=== PATIENT | female | born 1960 | race Caucasian/White ===

== ENCOUNTER 2023-07-15 11:24 | Emergency (ER) | payer MEDICARE, OTHER, SELFPAY ==
[2023-07-15 11:29] VITALS: BP 152/102
[2023-07-15 11:49] LABS: % Basophils 0.7 % (0-2); % Eosinophils 1.1 % (0-6); % Immature Granulocytes 0.4 % (0-0.5); % Lymphocytes 21.7 % (20.5-51.1); % Neutrophils 72.1 % (42.2-75.2); Absolute Basophils 0.1 10^3/uL (0-0.2); Absolute Eosinophils 0.1 10^3/uL (0-0.7); Absolute Lymphocytes 2.4 10^3/uL (1.2-3.4); Absolute Monocytes 0.4 10^3/uL (0.1-0.6); Hematocrit 43.4 % (37.0-47.0); Hemoglobin 15.1 g/dL (12.0-16.0); Mean Corp Hgb Conc. 34.8 g/dL (33.0-37.0); Mean Corpuscular Hgb 31.6 pg (27.0-31.0); Mean Corpuscular Volume 90.8 fL (81.0-99.0); Mean Platelet Volume 10.8 fL (7.4-10.4); Nucleated Red Blood Cells % 0 %; Platelet Count 294 10^3/uL (130-400); Red Blood Cell Count 4.78 10^6/uL (4.20-5.40); Red Cell Dist. Width 13.3 % (11.5-14.5); White Blood Cell Count 11.1 10^3/uL (4.8-10.8)
[2023-07-15 12:02] LABS: ALT (SGPT) 26 U/L (0-35); AST (SGOT) 40 U/L (14-36); Albumin 4.2 g/dl (3.5-5.0); Alkaline Phosphatase 143 U/L (38-126); Blood Urea Nitrogen 18 mg/dl (7-17); Calcium 9.7 mg/dl (8.4-10.2); Carbon Dioxide 25 mmol/L (22-30); Chloride 102 mmol/L (98-107); Glucose 228 mg/dl (70-99); Potassium 4.2 mmol/L (3.5-5.1); Sodium 136 mmol/L (135-145); Total Bilirubin 1.2 mg/dl (0.2-1.3); Total CK 563 U/L (30-135); eGFR > 60.00
[2023-07-15 12:32] LABS: CKMB 2.5 ng/ml (0.0-2.4)
[2023-07-15] MEDS: NSS 1000 IV (14:08)
[2023-07-15 14:09] VITALS: BP 153/61
[2023-07-15 15:00] VITALS: BP 97/69
[2023-07-15 16:15] VITALS: BP 127/51
[2023-07-15] MEDS: BACITRACIN OINTMENT 1 APPLIC TOPICAL (16:15)
--- NOTE | 2023-07-22 19:25 | ED.GENMED ---
History of Present Illness
General
Chief Complaint: Fall
Source: patient and ambulance crew
Exam Limitations: none
Time Seen by Provider: 07/15/23 12:30
Travel History
Have you had any contact with someone who has COVID-19?: No
Do you have any symptoms of coronavirus? Fever > 100 degrees, chills, cough, shortness of breath, sore throat, loss of taste or smell, muscle aches, or headache?: No
History of Present Illness
History of Present Illness:
63-year-old female presents emergency department after falling Saturday night and being unable to stand. EMS notes that she was ambulatory on the floor and on the scene after getting up off the floor. She reports muscle stiffness and abrasions on
her leg
Past History
Past History
ED Past Medical History: Cancer (Endometrial CA), HTN, NIDDM, Hypothyroidism, Psychiatric (Depression), Other (Pseudotumor cerebri, history of abdominal wall abscess, history of recurrent infected seroma, history of prolonged wound VAC for
nonhealing postsurgical abdominal wound, Idiopathic intracranial HTN, ) and Other (Diverticulitis, )
ED Past Surgical History: Appendectomy, Bowel resection (large bowel, ), Brain (Shunt), Cholecystectomy, Gynecological (Hysterectomy, PCOS), Orthopedic (Right patella removal, ) and Other (colostomy with reversal, hernia, LP shunt at Lumbar
peritoneal L3-L5 replaced 6 times, )
Social History
Tobacco: Non-smoker
Alcohol: Occasional
Drug: None
Personal: Single
Living: alone
Employment: Employed
Family History
Family History: Hypertension
Review of Systems
Review of Systems
Allergies reviewed?: Yes
All Other Systems: Not applicable
Constitutional: Reports no symptoms
EENT: Reports no symptoms
Respiratory: Reports no symptoms
Cardiac: Reports no symptoms
ABD/GI: Reports no symptoms
: Reports no symptoms
Musculoskeletal: Reports no symptoms
Skin: Reports other (Abrasions bilateral lower legs)
Neurological: Reports no symptoms
Endocrine: Reports no symptoms
Hematologic/Lymphatic: Reports no symptoms
Psychiatric: Reports no symptoms
Phy Exam
Physical Exam
Physical Exam:
Physical Exam
General: no apparent distress, not acutely ill
Neck: supple. no meningeal signs. normal posterior pharynx
Heart: s1/s2 regular rate and rhythm, no murmur. equal radial
pulses.
HEENT: Pupils equal round reactive to light, EOMI
Lungs: no acute respiratory distress. clear bilaterally
Abdomen: normal bowel sounds. not tender. no CVAT
Neuro: alert and oriented. no focal neurological deficits cranial nerves II through XII intact
Skin: no rash, abrasions bilateral lower legs
Psychiatric: well kept. interactive and cooperative
Extremities: no edema. no calf tenderness. negative homans. good distal pulses
Course
Orders/Labs/Results
Orders:
Orders
07/15/23 11:39
CKMB [CPK Isoenzyme] Urgent
Complete Blood Count/With Diff Urgent
Comprehensive Metabolic Panel Urgent
07/15/23 12:48
0.9% Sodium Chloride 1000 ml [Nss] 1,000 ml IV BOLUS
07/15/23 12:50
CT Head W/o Iv Contrast Urgent
Comment:
Reason For Exam: fall, hit head
Ribs, Left 3 View W/PA Chest CR [CR Ribs-left 3 Vw W/pa Chest] Urgent
Comment:
Reason For Exam: fall, left rib pain
07/15/23 15:34
Bacitracin Zinc [Bacitracin Ointment] See Dose Instructions TOPICAL NOW STA
Abnormal Lab Results
07/15/23
11:39
WBC 11.1 H 10^3/uL
(4.8-10.8)
MCH 31.6 H pg
(27.0-31.0)
MPV 10.8 H fL
(7.4-10.4)
Absolute Neuts (auto) 8.0 H 10^3/uL
(1.4-6.5)
BUN 18 H mg/dl
(7-17)
Glucose 228 H mg/dl
(70-99)
AST 40 H U/L
(14-36)
Alkaline Phosphatase 143 H U/L
(38-126)
Total Creatine Kinase 563 H U/L
(30-135)
CK-MB (CK-2) 2.5 H ng/ml
(0.0-2.4)
07/15/23 11:39
07/15/23 11:39
Vital Signs
Initial and Last Documented VS:
Initial Vital Signs
Temp Pulse Resp BP Pulse Ox
98.0 F 101 20 152/102 99
07/15/23 11:29 07/15/23 11:29 07/15/23 11:29 07/15/23 11:29 07/15/23 11:29
Last Documented Vital Signs
Temp Pulse Resp BP Pulse Ox
98.0 F 105 19 127/51 98
07/15/23 11:29 07/15/23 16:15 07/15/23 16:15 07/15/23 16:15 07/15/23 15:15
MDM/Problems Addressed
Differential Diagnosis Includes:
Intracranial hemorrhage, rib fracture
MDM/Problems Addressed:
63-year-old female with fall, multiple abrasions, no signs of fracture. Patient ambulatory in ED. Stable for discharge.
Chronic conditions affecting care: HTN
Acute Exacerbation and/or Progression of Chronic Illness: HTN
*Radiology
Radiology exam reviewed: radiology read reviewed (Rib series no signs of fracture, CT head no acute findings)
*Pulse Oximetry
Patient hypoxic: no
*EKG
Interpreted by ED Provider?: NA
*Paper Cone Maker Interpretation
Rate: Paper Cone Maker- N/A
*Critical Care Note
Total Time (30-74mins, 75-104mins- exclusive of procedures): Not Applicable
Patient Management
Social determinants of health affecting care: Living situation
Escalation/DeEscalation of care consider admission/obs:
Admit not indicated
ED Attending Note
-
Portions of this chart may have been created with voice recognition software.� Occasional wrong word or��sound alike� substitutions may have occurred due to the inherent limitations of voice recognition software.
Discharge Plan
Departure
Patient Disposition: Home (Routine Discharge)
Date of Disposition: 07/15/23
Time of Disposition: 15:37
Patient with high blood pressure during this ER visit?: Yes
Condition: Good
Discharge Problem:
Fall, Abrasion of multiple sites of lower extremity
Instructions: Preventing falls in adults, Skin Abrasions (DC), BLOOD PRESSURE
Prescriptions:
No Action
lorazepam 0.5 MG tablet
0.5 mg PO BID
Patient Comments:
11/01/21 pt picked up 10/04/21 #60
lisinopril 5 MG tablet
5 mg PO DAILY
nystatin [Nyamyc] 60 GM powder
1 applic TP DAILYPRN PRN (Reason: legs and breast)
furosemide 40 MG tablet
20 mg PO DAILY
metronidazole 500 MG tablet
500 mg PO TID
ondansetron [Zofran ODT] 8 MG tablet,disintegrating
8 mg PO BIDPRN PRN (Reason: nausea)
gabapentin 300 MG capsule
300 mg PO DAILY
levothyroxine 200 MCG tablet
300 mcg PO DAILY
oxycodone 5 MG tablet
5 mg PO TID
Patient Comments:
11/01/21 pt picked up 10/02/21 #120
zolpidem [Ambien CR] 6.25 MG tablet,ext release multiphase
6.25 mg PO HS
Patient Comments:
11/01/21 patient picked up 10/05 #30
quetiapine [Seroquel] 50 MG tablet
50 mg PO HS
insulin glargine [Lantus Solostar U-100 Insulin] 300 UNITS/3 ML insulin pen
35 units SC BID
atenolol 25 mg Tablet
25 mg PO BID
diphenoxylate-atropine [Lomotil] 2.5-0.025 mg Tablet
1 tab PO DAILY PRN (Reason: diarrhea)
acetaminophen 500 mg Tablet
500 mg PO Q6H PRN (Reason: mild pain)
aripiprazole 10 mg Tablet
10 mg PO DAILY
insulin aspart (niacinamide) 100 unit/mL (3 mL) Insulin Pen
15 unit SC TID
diphenoxylate-atropine [Lomotil] 2.5-0.025 mg tablet
1 tab PO QID PRN (Reason: diarrhea) Qty: 10 0RF
ondansetron 4 mg tablet,disintegrating
4 mg PO QID PRN (Reason: nausea and vomiting) Qty: 20 0RF
Referrals:
Meme Shen MD [Family Provider] -
Interventions
Interventions:
*Risk Screen - Suicide Last Done: 07/15/23 11:29
*General Assessment Last Done: 07/15/23 11:29
*Neglect/Abuse Screening Last Done: 07/15/23 11:29
ED- Fall Risk Assessment Last Done: 07/15/23 17:39
*ED COVID-19 Vaccine History Last Done: 07/15/23 11:31
*Nursing Disposition Last Done: 07/15/23 16:15
ED-Musculoskeletal Assessment Last Done: 07/15/23 14:13
ED- Neurological Assessment Last Done: 07/15/23 14:13
ED-Skin Assessment Last Done: 07/15/23 14:13
Discharge Date and Time
Discharge Date/Time: 07/15/23 17:00
== END 2023-07-15 17:00 | disposition home or self-care (01) ==
LOC: EMR 11:24
PROVIDERS: Emergency Medicine; EMERGENCY PHYSICIAN Emergency Medicine; FAMILY PHYSICIAN Internal Medicine
DX: S80.812A Abrasion, left lower leg, initial encounter (principal); S80.811A Abrasion, right lower leg, initial encounter; W19.XXXA Unspecified fall, initial encounter; I10 Essential (primary) hypertension
CPT/HCPCS: 99285; 96360; 70450; 71101; 80053; 82550; 82553; 85025

== ENCOUNTER 2023-07-20 01:23 | Emergency (ER) | payer MEDICARE, OTHER, SELFPAY ==
[2023-07-20] VITALS (7 sets, daily range): BP systolic 112–142; BP diastolic 55–83; BMI 40.2
[2023-07-20 02:21] LABS: Glucose - Point of Care 141 mg/dl (70-99)
[2023-07-20 03:01] LABS: % Basophils 0.3 % (0-2); % Eosinophils 2.2 % (0-6); % Immature Granulocytes 0.3 % (0-0.5); % Lymphocytes 28.6 % (20.5-51.1); % Monocytes 6.1 % (1.7-9.3); % Neutrophils 62.5 % (42.2-75.2); Absolute Eosinophils 0.2 10^3/uL (0-0.7); Absolute Lymphocytes 2.5 10^3/uL (1.2-3.4); Absolute Monocytes 0.5 10^3/uL (0.1-0.6); Absolute Neutrophils 5.4 10^3/uL (1.4-6.5); Hematocrit 41.9 % (37.0-47.0); Hemoglobin 14.3 g/dL (12.0-16.0); Mean Corp Hgb Conc. 34.1 g/dL (33.0-37.0); Mean Corpuscular Volume 93.7 fL (81.0-99.0); Mean Platelet Volume 11.1 fL (7.4-10.4); Nucleated Red Blood Cells % 0 %; Platelet Count 269 10^3/uL (130-400); Red Blood Cell Count 4.47 10^6/uL (4.20-5.40); Red Cell Dist. Width 13.2 % (11.5-14.5); White Blood Cell Count 8.7 10^3/uL (4.8-10.8)
[2023-07-20 03:14] LABS: ALT (SGPT) 23 U/L (0-35); AST (SGOT) 22 U/L (14-36); Albumin 3.8 g/dl (3.5-5.0); Alkaline Phosphatase 126 U/L (38-126); Blood Urea Nitrogen 26 mg/dl (7-17); Calcium 9.4 mg/dl (8.4-10.2); Carbon Dioxide 31 mmol/L (22-30); Chloride 99 mmol/L (98-107); Estimated Creatinine Clearance 68 ml/min; Glucose 153 mg/dl (70-99); Lipase 52 U/L (23-300); Potassium 3.4 mmol/L (3.5-5.1); Sodium 137 mmol/L (135-145); Total Bilirubin 0.6 mg/dl (0.2-1.3); Total Protein 7.1 g/dl (6.3-8.2); eGFR > 60.00
--- NOTE | 2023-07-20 04:26 | ED.GENMED ---
History of Present Illness
<EVELYN Emerson - Last Filed: 07/20/23 04:35>
General
Chief Complaint: Abdominal Symptoms
Source: patient
Exam Limitations: none
Time Seen by Provider: 07/20/23 04:02
Nursing documentation reviewed up to this point in time: agreed with
Travel History
Have you had any contact with someone who has COVID-19?: No
Do you have any symptoms of coronavirus? Fever > 100 degrees, chills, cough, shortness of breath, sore throat, loss of taste or smell, muscle aches, or headache?: No
History of Present Illness
History of Present Illness:
This is a 63 year old female who presents to the ED via EMS c/o lightheadedness and dizziness. Pt states she fell 6 days ago and was seen at the hospital. She felt fine after she was discharged for a few days, but yesterday morning she woke up not
feeling well. She states she was unable to get out of bed and she was dizzy and felt as though she was going to pass out. She states she vomited two times and has had associated abdominal pain and diarrhea. Pt also adds that she is experiencing pain
while taking a deep breath. She denies any fever, COHN, or constipation. She adds that she has been having chills.
Past History
<EVELYN Emerson - Last Filed: 07/20/23 04:35>
Past History
ED Past Medical History: Cancer (Endometrial CA), HTN, NIDDM, Hypothyroidism, Psychiatric (Depression), Other (Pseudotumor cerebri, history of abdominal wall abscess, history of recurrent infected seroma, history of prolonged wound VAC for
nonhealing postsurgical abdominal wound, Idiopathic intracranial HTN, ) and Other (Diverticulitis, )
ED Past Surgical History: Appendectomy, Bowel resection (large bowel, ), Brain (Shunt), Cholecystectomy, Gynecological (Hysterectomy, PCOS), Orthopedic (Right patella removal, ) and Other (colostomy with reversal, hernia, LP shunt at Lumbar
peritoneal L3-L5 replaced 6 times, )
Social History
Tobacco: Non-smoker
Alcohol: Occasional
Drug: None
Personal: Single
Living: alone
Employment: Employed
Family History
Family History: Hypertension
Review of Systems
<Rachel Fraga [facility] - Last Filed: 07/20/23 04:35>
Review of Systems
Allergies reviewed?: Yes
All Other Systems: ROS reviewed and negative except as documented in HPI and ROS
Constitutional: Reports chills; Denies fever
EENT: Reports no symptoms
Respiratory: Reports trouble breathing
Cardiac: Reports chest pain; Denies syncope
ABD/GI: Reports abdominal pain, nausea, vomiting and diarrhea
: Reports no symptoms
Musculoskeletal: Reports no symptoms
Skin: Reports no symptoms
Neurological: Reports dizzy; Denies headache
Psychiatric: Reports no symptoms
Phy Exam
<Rachel Flakito [facility] - Last Filed: 07/20/23 04:35>
General Physical Exam
General Presentation: mild distress
General age: appears stated age
General Skin: warm and dry
General Habitus: normal
General Mental: alert
General Hydration: dry mucous membranes
ENT Exam
ENT Exam: pharynx normal, normocephalic and swallowing well
Cardiovascular Exam
Cardiovascular Exam: regular rate/rhythm, no edema, no murmur and normal peripheral pulses
Pulmonary Exam
Pulmonary Exam: lungs clear, no respiratory distress, no rales, no crackles, no rhonchi, no wheezing and no cough
Gastrointestinal Exam
Gastrointestinal Exam: normal bowel sounds, soft, non distended and tender (epigastric)
Neurological Exam
Neurological Exam: alert and oriented x3
Musculoskeletal Exam
Musculoskeletal Exam: full ROM and no edema
Skin Exam
Skin Exam: normal color and warm/dry
Psychiatric Exam
Psychiatric Exam: normal mood/affect
Course
<Leslideidra EVEYLN Fraga - Last Filed: 07/20/23 04:35>
Orders/Labs/Results
Orders:
Orders
07/20/23 02:30
IV Insert/Care/Rem.- Treatment PRN
07/20/23 02:32
Complete Blood Count/With Diff Urgent
Comprehensive Metabolic Panel Urgent
Lipase Urgent
07/20/23 04:59
0.9% Sodium Chloride 1000 ml [Nss] 1,000 ml IV BOLUS
07/20/23 05:13
Ondansetron Injectable [Zofran] 4 mg IV NOW STA
07/20/23 05:26
STOOL [C difficile Antigen & Toxins] Urgent
DION Source: Feces/Stool
Specimen Description:
Date Specimen was Collected: 07/20/23
Time Specimen was Collected: 05:13
Stool Culture Urgent
DION Source: Feces/Stool
Specimen Description:
Date Specimen was Collected: 07/20/23
Time Specimen was Collected: 05:13
Abnormal Lab Results
07/20/23 07/20/23
02:19 02:32
MCH 32.0 H pg
(27.0-31.0)
MPV 11.1 H fL
(7.4-10.4)
Potassium 3.4 L mmol/L
(3.5-5.1)
Carbon Dioxide 31 H mmol/L
(22-30)
BUN 26 H mg/dl
(7-17)
Glucose 153 H mg/dl
(70-99)
POC Glucose 141 H mg/dl
(70-99)
07/20/23 02:32
07/20/23 02:32
Vital Signs
Initial and Last Documented VS:
Initial Vital Signs
Temp Pulse Resp BP Pulse Ox
97.9 F 95 14 139/83 99
07/20/23 01:40 07/20/23 01:40 07/20/23 01:40 07/20/23 01:40 07/20/23 01:40
Last Documented Vital Signs
Temp Pulse Resp BP Pulse Ox
97.9 F 95 14 139/83 99
07/20/23 01:40 07/20/23 01:40 07/20/23 01:40 07/20/23 01:40 07/20/23 01:40
<Janet Kathleen, DO - Last Filed: 07/20/23 06:55>
Orders/Labs/Results
Orders:
Orders
07/20/23 02:30
IV Insert/Care/Rem.- Treatment PRN
07/20/23 02:32
Complete Blood Count/With Diff Urgent
Comprehensive Metabolic Panel Urgent
Lipase Urgent
07/20/23 04:59
0.9% Sodium Chloride 1000 ml [Nss] 1,000 ml IV BOLUS
07/20/23 05:13
Ondansetron Injectable [Zofran] 4 mg IV NOW STA
07/20/23 05:26
STOOL [C difficile Antigen & Toxins] Urgent
DION Source: Feces/Stool
Specimen Description:
Date Specimen was Collected: 07/20/23
Time Specimen was Collected: 05:13
Stool Culture Urgent
DION Source: Feces/Stool
Specimen Description:
Date Specimen was Collected: 07/20/23
Time Specimen was Collected: 05:13
Abnormal Lab Results
07/20/23 07/20/23
02:19 02:32
MCH 32.0 H pg
(27.0-31.0)
MPV 11.1 H fL
(7.4-10.4)
Potassium 3.4 L mmol/L
(3.5-5.1)
Carbon Dioxide 31 H mmol/L
(22-30)
BUN 26 H mg/dl
(7-17)
Glucose 153 H mg/dl
(70-99)
POC Glucose 141 H mg/dl
(70-99)
07/20/23 02:32
07/20/23 02:32
Vital Signs
Initial and Last Documented VS:
Initial Vital Signs
Temp Pulse Resp BP Pulse Ox
97.9 F 95 14 139/83 99
07/20/23 01:40 07/20/23 01:40 07/20/23 01:40 07/20/23 01:40 07/20/23 01:40
Last Documented Vital Signs
Temp Pulse Resp BP Pulse Ox
97.9 F 95 14 139/83 99
07/20/23 01:40 07/20/23 01:40 07/20/23 01:40 07/20/23 01:40 07/20/23 01:40
<Janet Kathleen DO - Last Filed: 07/20/23 06:55>
*Pulse Oximetry
Patient hypoxic: no
*Critical Care Note
Total Time (30-74mins, 75-104mins- exclusive of procedures): Not Applicable
ED Attending Note
<EVELYN Emerson - Last Filed: 07/20/23 04:35>
-
Portions of this chart may have been created with voice recognition software.� Occasional wrong word or��sound alike� substitutions may have occurred due to the inherent limitations of voice recognition software.
<Janet Kathleen DO - Last Filed: 07/20/23 06:55>
ED Attending Note
Patient seen and examined by attending physician: Yes
I performed the substantive portion of visit, reviewed & personally made and approve the management plan that is documented in note by myself or ADILENE.: Yes
I performed a history and physical exam of patient and discussed management with resident, I reviewed resident's note and agree with documented findings and plan of care.: Yes
ED Attending Note:
This is a 63-year-old woman who complains of generalized weakness, dizziness associated with nausea, vomiting, diarrhea that began yesterday afternoon. She has not had a fever but has had intermittent chills and aches. She denies hematemesis nor
hematochezia.
Symptoms are improving since arrival to the ED but she continues with some intermittent mild crampy abdominal discomfort with sense of needing to pass a bowel movement.
No recent travel nor recent antibiotic use.
Records reveal very similar complaints during ED visit February 2023.
She has a known left upper quadrant enterocutaneous fistula that was evaluated with fistulogram and CT abdomen pelvis in May of this year that showed no evidence of fistula, no free fluid nor intra-abdominal abscess.
GENERAL: 63-year-old woman appears somewhat older than stated age, moderately drowsy, answering questions appropriately and overall appears in no acute distress.
EYE: anicteric
NECK: Supple, nontender, no meningismus, no significant adenopathy.
ENT: posterior pharynx is clear, oral mucosa is mildly dry. T no rhinorrhea.
CARDIAC: Regular rate and rhythm. no murmur.
LUNGS: Clear breath sounds bilaterally, no acute respiratory distress, no wheezes/rales/rhonchi
ABDOMEN: Soft, nondistended, without focal tenderness, no r/g, no cvat. Mildly hyperactive bowel sounds.
NEUROLOGICAL: Alert and oriented x3, no focal neuro deficits.
SKIN: Warm and dry, normal color, skin intact. No rash.
MUSCULOSKELETAL: No C/C/E. peripheral pulses are full and equal b/l. No palpable tenderness.
PSYCH: Mildly blunted affect.
Concern for gastroenteritis, colitis, small bowel obstruction, dehydration, electrolyte abnormality. Overall symptoms are improving.
Patient clinically appears at least mildly dehydrated but is hemodynamically stable.
Labs are reassuring with normal white blood cell count, normal H&H.
Chemistries show very mild prerenal azotemia with minimal hypokalemia with potassium of 3.4, mild metabolic alkalosis. LFTs within normal limits.
Will give IV fluid bolus. Currently denies nausea but will give Zofran if nausea returns.
If diarrhea ensues will send for stool cultures, stool for C. difficile but reassuring that patient is afebrile and normal white blood cell count. No recent antibiotic use.
Abdominal exam soft and benign, symptoms are improving, at this point no indication for radiologic studies.
07/20/2023 0646 AM
Patient continues to sleep when undisturbed.
Tolerating oral fluids.
Will discharge to home with a prescription for Zofran for as needed nausea. Lomotil for as needed diarrhea.
Recommend she limit her diet to clear liquids today, slowly advance as tolerated tomorrow.
Prompt follow-up with primary care physician for recheck.
Discharge Plan
Departure
Patient Disposition: Home (Routine Discharge)
Date of Disposition: 07/20/23
Time of Disposition: 06:47
Patient with high blood pressure during this ER visit?: No
Discharge Problem:
Acute gastroenteritis
Instructions: Clear Liquid Diet, Viral Gastroenteritis, Adult (DC)
Prescriptions:
New
diphenoxylate-atropine [Lomotil] 2.5-0.025 mg tablet
1 tab PO QID PRN (Reason: diarrhea) Qty: 10 0RF
ondansetron 4 mg tablet,disintegrating
4 mg PO QID PRN (Reason: nausea and vomiting) Qty: 20 0RF
No Action
lorazepam 0.5 MG tablet
0.5 mg PO BID
Patient Comments:
11/01/21 pt picked up 10/04/21 #60
lisinopril 5 MG tablet
5 mg PO DAILY
nystatin [Nyamyc] 60 GM powder
1 applic TP DAILYPRN PRN (Reason: legs and breast)
furosemide 40 MG tablet
20 mg PO DAILY
metronidazole 500 MG tablet
500 mg PO TID
ondansetron [Zofran ODT] 8 MG tablet,disintegrating
8 mg PO BIDPRN PRN (Reason: nausea)
gabapentin 300 MG capsule
300 mg PO DAILY
levothyroxine 200 MCG tablet
300 mcg PO DAILY
oxycodone 5 MG tablet
5 mg PO TID
Patient Comments:
11/01/21 pt picked up 10/02/21 #120
zolpidem [Ambien CR] 6.25 MG tablet,ext release multiphase
6.25 mg PO HS
Patient Comments:
11/01/21 patient picked up 10/05 #30
quetiapine [Seroquel] 50 MG tablet
50 mg PO HS
insulin glargine [Lantus Solostar U-100 Insulin] 300 UNITS/3 ML insulin pen
35 units SC BID
atenolol 25 mg Tablet
25 mg PO BID
diphenoxylate-atropine [Lomotil] 2.5-0.025 mg Tablet
1 tab PO DAILY PRN (Reason: diarrhea)
acetaminophen 500 mg Tablet
500 mg PO Q6H PRN (Reason: mild pain)
aripiprazole 10 mg Tablet
10 mg PO DAILY
insulin aspart (niacinamide) 100 unit/mL (3 mL) Insulin Pen
15 unit SC TID
Referrals:
Meme Shen MD [Family Provider] - Call in 1-3 days for appt
Interventions
Interventions:
*Risk Screen - Suicide Last Done: 07/20/23 02:21
*General Assessment Last Done: 07/20/23 02:21
*Neglect/Abuse Screening Last Done: 07/20/23 02:21
ED- Fall Risk Assessment Last Done: 07/20/23 02:21
*ED COVID-19 Vaccine History Last Done: 07/20/23 02:21
ZC-Ougdqi-Adpwqemqla Assessment Last Done: 07/20/23 02:21
[2023-07-20] MEDS: NSS 1000 IV (05:18)
[2023-07-20] MEDS: ZOFRAN 4 MG IV (05:18)
== END 2023-07-20 09:02 | disposition home or self-care (01) ==
LOC: EMR 01:23
PROVIDERS: EMERGENCY PHYSICIAN Emergency Medicine; FAMILY PHYSICIAN Internal Medicine
DX: K52.9 Noninfective gastroenteritis and colitis, unspecified (principal); I10 Essential (primary) hypertension
CPT/HCPCS: 99284; 96374; 96361; 80053; 82962; 83690; 85025; 87045; 87046; 87324; 87427; 87449

== ENCOUNTER → 2023-08-06 09:58 | Outpatient (REF) | payer MEDICARE, OTHER, SELFPAY ==
[2023-08-06 11:33] LABS: % Eosinophils 9.7 % (0-6); % Immature Granulocytes 0.1 % (0-0.5); % Lymphocytes 32.9 % (20.5-51.1); % Monocytes 5.5 % (1.7-9.3); % Neutrophils 50.8 % (42.2-75.2); Absolute Basophils 0.1 10^3/uL (0-0.2); Absolute Eosinophils 0.8 10^3/uL (0-0.7); Absolute Lymphocytes 2.8 10^3/uL (1.2-3.4); Absolute Monocytes 0.5 10^3/uL (0.1-0.6); Absolute Neutrophils 4.2 10^3/uL (1.4-6.5); Hematocrit 40.9 % (37.0-47.0); Hemoglobin 13.8 g/dL (12.0-16.0); Mean Corp Hgb Conc. 33.7 g/dL (33.0-37.0); Mean Corpuscular Hgb 31.8 pg (27.0-31.0); Mean Corpuscular Volume 94.2 fL (81.0-99.0); Mean Platelet Volume 11.4 fL (7.4-10.4); Nucleated Red Blood Cells % 0 %; Platelet Count 253 10^3/uL (130-400); Red Blood Cell Count 4.34 10^6/uL (4.20-5.40); Red Cell Dist. Width 13.1 % (11.5-14.5); White Blood Cell Count 8.4 10^3/uL (4.8-10.8)
[2023-08-06 12:06] LABS: Microalbumin, Random Urine <0.6 mg/dl (0.6-1.7)
[2023-08-06 12:07] LABS: ALT (SGPT) 23 U/L (0-35); AST (SGOT) 24 U/L (14-36); Alkaline Phosphatase 141 U/L (38-126); Blood Urea Nitrogen 19 mg/dl (7-17); Calcium 9.6 mg/dl (8.4-10.2); Carbon Dioxide 33 mmol/L (22-30); Chloride 99 mmol/L (98-107); Glucose 167 mg/dl (70-99); HDL Cholesterol 74 mg/dl; LDL Cholesterol, Calculated 29 mg/dl; Potassium 4.3 mmol/L (3.5-5.1); Sodium 137 mmol/L (135-145); Total Bilirubin 0.9 mg/dl (0.2-1.3); Total Cholesterol 124 mg/dl (50-199); Total Protein 7.5 g/dl (6.3-8.2); Triglyceride 105 mg/dl (10-149); Very Low Density Lipoprotein 21 mg/dl (0-30); eGFR > 60.00
[2023-08-06 12:32] LABS: TSH < 0.02 uIU/ml (0.47-4.68)
== END ==
LOC: REG 09:58
PROVIDERS: ATTENDING PHYSICIAN Internal Medicine
DX: E11.65 Type 2 diabetes mellitus with hyperglycemia (principal); E11.22 Type 2 diabetes mellitus with diabetic chronic kidney disease; E03.9 Hypothyroidism, unspecified; D75.1 Secondary polycythemia
CPT/HCPCS: 36415; 80053; 80061; 82043; 82570; 84443; 85025

== ENCOUNTER 2023-11-20 11:41 | Emergency (ER) | payer MEDICARE, OTHER, SELFPAY ==
[2023-11-20 11:42] VITALS: BP 155/80
[2023-11-20 12:38] LABS: ALT (SGPT) 20 U/L (0-35); AST (SGOT) 19 U/L (14-36); Albumin 4.2 g/dl (3.5-5.0); Alkaline Phosphatase 141 U/L (38-126); Blood Urea Nitrogen 24 mg/dl (7-17); Calcium 9.8 mg/dl (8.4-10.2); Carbon Dioxide 29 mmol/L (22-30); Chloride 99 mmol/L (98-107); Glucose 292 mg/dl (70-99); Potassium 4.7 mmol/L (3.5-5.1); Sodium 136 mmol/L (135-145); Total Bilirubin 0.8 mg/dl (0.2-1.3); Total Protein 7.8 g/dl (6.3-8.2); eGFR > 60.00
--- NOTE | 2023-11-20 13:18 | ED.GENMED ---
History of Present Illness
General
Chief Complaint: Skin Problem
Source: patient
Exam Limitations: none
Time Seen by Provider: 11/20/23 13:16
Nursing documentation reviewed up to this point in time: agreed with
History of Present Illness
History of Present Illness:
This is a 63 y/o female with a PMH of endometrial cancer, insulin dependent diabetes, colostomies, fistulas presenting emergency department today with concerns of a fistula from her skin to her small bowel. Patient states that ever since she had a
hysterectomy for her endometrial cancer a few years ago, patient has had issues with fistulas and bladder and bowel perforations as a result. Patient states that she is tired of getting procedures done and has had skin to small bowel fistula that
has been open for the past year and a half and she has not gotten any treatment for it because she states that she is on palliative care. Patient states that she will see her surgeon Dr. Severino from time to time to have the fistula 'opened up'.
Patient states that the fistula was starting to close and she started to feel fatigued and a bit sick. Patient states that she called the office to get it opened up but they are unable to get her in to be seen right away. Patient denies any fevers
or chills, any nausea or vomiting, any constipation or diarrhea.
Past History
Past History
ED Past Medical History: Cancer (Endometrial CA), HTN, NIDDM, Hypothyroidism, Psychiatric (Depression), Other (Pseudotumor cerebri, history of abdominal wall abscess, history of recurrent infected seroma, history of prolonged wound VAC for
nonhealing postsurgical abdominal wound, Idiopathic intracranial HTN, ) and Other (Diverticulitis, )
ED Past Surgical History: Appendectomy, Bowel resection (large bowel, ), Brain (Shunt), Cholecystectomy, Gynecological (Hysterectomy, PCOS), Orthopedic (Right patella removal, ) and Other (colostomy with reversal, hernia, LP shunt at Lumbar
peritoneal L3-L5 replaced 6 times, )
Social History
Tobacco: Non-smoker
Alcohol: Occasional
Drug: None
Personal: Single
Living: alone
Employment: Employed
Family History
Family History: Hypertension
Review of Systems
Review of Systems
All Other Systems: ROS reviewed and negative except as documented in HPI and ROS
Phy Exam
Physical Exam
Physical Exam:
General: Patient is well appearing and in no acute distress; non-toxic
Skin: Warm and dry, there is a 3 cm wound on her left abdomen which patient states is her fistula. The wound appears to be well epithelialized and there is no open tract. No surrounding erythema to the wound, no drainage.
Head: Normocephalic, atraumatic
Eyes: Sclera non-icteric. EOMs intact. PERRLA.
Cardiac: Regular rate and rhythm, no murmurs.
Peripheral Vascular: No lower extremity swelling or edema
Pulm: Normal respiratory effort
Abdomen: Mild right-sided abdominal tenderness to palpation, patient states that she has a hernia in this area. No rebound tenderness, no guarding.
Neuro: CN II-XII intact, no focal neurologic deficits.
Psychiatric: Appropriate mood and affect.
Course
Orders/Labs/Results
Orders:
Orders
11/20/23 11:52
CMP [Comprehensive Metabolic Panel] Urgent
11/20/23 13:59
Complete Blood Count/With Diff Urgent
Abnormal Lab Results
11/20/23 11/20/23
11:52 13:59
MCH 31.6 H pg
(27.0-31.0)
Absolute Lymphs (auto) 3.5 H 10^3/uL
(1.2-3.4)
Absolute Monos (auto) 0.7 H 10^3/uL
(0.1-0.6)
BUN 24 H mg/dl
(7-17)
Glucose 292 H mg/dl
(70-99)
Alkaline Phosphatase 141 H U/L
(38-126)
11/20/23 13:59
11/20/23 11:52
Vital Signs
Initial and Last Documented VS:
Initial Vital Signs
Temp Pulse Resp BP Pulse Ox
99.1 F 103 20 155/80 98
11/20/23 11:42 11/20/23 11:42 11/20/23 11:42 11/20/23 11:42 11/20/23 11:42
Last Documented Vital Signs
Temp Pulse Resp BP Pulse Ox
99.1 F 103 20 179/104 98
11/20/23 11:42 11/20/23 11:42 11/20/23 11:42 11/20/23 15:00 11/20/23 11:42
MDM/Problems Addressed
Differential Diagnosis Includes:
ddx include chronic fistula, cellulitis, abscess, colitis
MDM/Problems Addressed:
Chronic fistula:
This is a 63 y/o female with a PMH of endometrial cancer, insulin dependent diabetes, colostomies, fistulas presenting emergency department today with concerns of a fistula from her skin to her small bowel. Patient states that she is on palliative
care and that this remains chronically open. On exam, there is a 3 cm wound on her left abdomen which patient states is her fistula. The wound appears to be well epithelialized and there is no open tract. No surrounding erythema to the wound, no
drainage. Patient states that she presents here to have the trunk open up because her surgeon cannot get her in. I contacted her surgeon Dr. Severino via [place] text and reviewed the case with him, he states that there is nothing to do right now and
he will see her as an outpatient next week in the office. Considering patient has no fever, no white count, no indication for CAT scan at this time. Patient stable for outpatient follow-up
Chronic conditions affecting care:
ndometrial cancer, insulin dependent diabetes
*Pulse Oximetry
Patient hypoxic: no
*Critical Care Note
Total Time (30-74mins, 75-104mins- exclusive of procedures): Not Applicable
Patient Management
Escalation/DeEscalation of care consider admission/obs:
Admit not indicated, patient stable for discharge. This case was reviewed with my attending Dr. Waters who personally evaluated patient.
ED Attending Note
-
Portions of this chart may have been created with voice recognition software.� Occasional wrong word or��sound alike� substitutions may have occurred due to the inherent limitations of voice recognition software.
Discharge Plan
Departure
Patient Disposition: Home (Routine Discharge)
Date of Disposition: 11/20/23
Time of Disposition: 15:04
Patient with high blood pressure during this ER visit?: Yes
Condition: Good
Discharge Problem:
Fistula of small intestine
Instructions: Enteric fistula, Wound Care (DC), BLOOD PRESSURE
Prescriptions:
No Action
lorazepam 0.5 MG tablet
0.5 mg PO BID
Patient Comments:
11/01/21 pt picked up 10/04/21 #60
lisinopril 5 MG tablet
5 mg PO DAILY
nystatin [Nyamyc] 60 GM powder
1 applic TP DAILYPRN PRN (Reason: legs and breast)
furosemide 40 MG tablet
20 mg PO DAILY
metronidazole 500 MG tablet
500 mg PO TID
ondansetron [Zofran ODT] 8 MG tablet,disintegrating
8 mg PO BIDPRN PRN (Reason: nausea)
gabapentin 300 MG capsule
300 mg PO DAILY
levothyroxine 200 MCG tablet
300 mcg PO DAILY
oxycodone 5 MG tablet
5 mg PO TID
Patient Comments:
11/01/21 pt picked up 10/02/21 #120
zolpidem [Ambien CR] 6.25 MG tablet,ext release multiphase
6.25 mg PO HS
Patient Comments:
11/01/21 patient picked up 10/05 #30
quetiapine [Seroquel] 50 MG tablet
50 mg PO HS
insulin glargine [Lantus Solostar U-100 Insulin] 300 UNITS/3 ML insulin pen
35 units SC BID
atenolol 25 mg Tablet
25 mg PO BID
diphenoxylate-atropine [Lomotil] 2.5-0.025 mg Tablet
1 tab PO DAILY PRN (Reason: diarrhea)
acetaminophen 500 mg Tablet
500 mg PO Q6H PRN (Reason: mild pain)
aripiprazole 10 mg Tablet
10 mg PO DAILY
insulin aspart (niacinamide) 100 unit/mL (3 mL) Insulin Pen
15 unit SC TID
diphenoxylate-atropine [Lomotil] 2.5-0.025 mg tablet
1 tab PO QID PRN (Reason: diarrhea) Qty: 10 0RF
ondansetron 4 mg tablet,disintegrating
4 mg PO QID PRN (Reason: nausea and vomiting) Qty: 20 0RF
Referrals:
Iftikhar Sam MD [Family Provider] -
Dillan Severino MD [Active] - Call in 1-3 days for appt
Activity Restrictions/Additional Instructions:
Please call Dr. Severino's office. He will see you in the office next week.
Please return emergency department should you experience chest pain, shortness of breath, nausea, vomiting, fevers, increasing pain, or any other concerning signs or symptoms.
Interventions
Interventions:
*Risk Screen - Suicide Last Done: 11/20/23 13:20
*General Assessment Last Done: 11/20/23 13:20
*Neglect/Abuse Screening Last Done: 11/20/23 13:20
ED- Fall Risk Assessment Last Done: 11/20/23 13:20
*ED COVID-19 Vaccine History Last Done: 11/20/23 13:20
*Nursing Disposition Last Done: 11/20/23 15:19
ED-Skin Assessment Last Done: 11/20/23 13:20
Discharge Date and Time
Discharge Date/Time: 11/20/23 15:19
Print Language: ANDORRAN
[2023-11-20 13:20] VITALS: BMI 43.9
[2023-11-20 13:27] VITALS: BP 161/95
[2023-11-20 14:04] VITALS: BP 134/59
[2023-11-20 14:26] LABS: % Basophils 0.8 % (0-2); % Eosinophils 2.3 % (0-6); % Immature Granulocytes 0.3 % (0-0.5); % Lymphocytes 35.2 % (20.5-51.1); % Monocytes 6.6 % (1.7-9.3); % Neutrophils 54.8 % (42.2-75.2); Absolute Basophils 0.1 10^3/uL (0-0.2); Absolute Eosinophils 0.2 10^3/uL (0-0.7); Absolute Lymphocytes 3.5 10^3/uL (1.2-3.4); Absolute Monocytes 0.7 10^3/uL (0.1-0.6); Absolute Neutrophils 5.4 10^3/uL (1.4-6.5); Hematocrit 43.6 % (37.0-47.0); Hemoglobin 14.8 g/dL (12.0-16.0); Mean Corp Hgb Conc. 33.9 g/dL (33.0-37.0); Mean Corpuscular Hgb 31.6 pg (27.0-31.0); Mean Platelet Volume 10.3 fL (7.4-10.4); Nucleated Red Blood Cells % 0 %; Platelet Count 256 10^3/uL (130-400); Red Blood Cell Count 4.69 10^6/uL (4.20-5.40); Red Cell Dist. Width 14.2 % (11.5-14.5); White Blood Cell Count 9.8 10^3/uL (4.8-10.8)
[2023-11-20 15:00] VITALS: BP 179/104
== END 2023-11-20 15:19 | disposition home or self-care (01) ==
LOC: EMR 11:41
PROVIDERS: Emergency Medicine; EMERGENCY PHYSICIAN Emergency Medicine; FAMILY PHYSICIAN Family Medicine
DX: K63.2 Fistula of intestine (principal); I10 Essential (primary) hypertension; E11.9 Type 2 diabetes mellitus without complications; E03.9 Hypothyroidism, unspecified; F32.A Depression, unspecified; Z82.49 Family history of ischemic heart disease and other diseases of the circulatory system; Z90.49 Acquired absence of other specified parts of digestive tract; Z90.710 Acquired absence of both cervix and uterus
CPT/HCPCS: 99282; 80053; 85025

== ENCOUNTER 2023-12-12 09:07 | Emergency (ER) | payer MEDICARE, OTHER, SELFPAY ==
[2023-12-12] VITALS (9 sets, daily range): BP systolic 108–155; BP diastolic 54–90; PULSE 78; O2SAT 94; BMI 40.8
[2023-12-12 09:13] LABS: Glucose - Point of Care 137 mg/dl (70-99)
--- NOTE | 2023-12-12 09:15 | ED.GENMED ---
History of Present Illness
General
Chief Complaint: Fainting/Passed Out
Time Seen by Provider: 12/12/23 09:15
History of Present Illness
History of Present Illness:
HPI: Patient presents by ambulance from home due to dizziness/vertigo. This been an ongoing issue for about a year. She tells me that she was supposed to have home care however this is fallen through and she has not had many at home to help. She
is concerned about falling. Her symptoms worsen when she gets up. She feels that she needs oxygen as this has helped her in the past however her oxygen room air sats are 98%. She called her primary care doctor who she could not be safe at home by
herself and recommends that she be placed.
EXAM:
GENERAL: Appears generally weak and debilitated
HEENT: Moist oral mucosa
CARDIOVASCULAR: No murmurs, normal heart rate, regular rhythm, No chest wall tenderness
PULMONARY: No respiratory distress, breath sounds are clear and equal
ABDOMEN: Soft with no peritoneal signs, no tenderness
NEUROLOGIC: Fair strength all extremities, no coordination deficits, gait was tested and she was able to walk with her cane with minimal assistance
PSYCHIATRIC: Appropriate mental status, normal insight and judgement
EXTREMITIES: Nontender, no edema, moves all extremities equally
SKIN: No rash, no lesions
TIME OF INITIAL ENCOUNTER: 9:30 AM
NUMBER AND COMPLEXITY OF PROBLEMS ADDRESSED AT THE ENCOUNTER
� Chronic conditions affecting care: DI, hypothyroidism, endometrial cancer, high blood pressure
� Acute Exacerbation and/or Progression of Chronic Illness: This is an acute worsening of a chronic problem
� Differential Diagnosis includes: Progressive functional decline, failure to thrive, anemia, orthostatic hypotension
AMOUNT AND/OR COMPLEXITY OF DATA TO BE REVIEWED AND ANALYZED
� I performed an independent evaluation of and my interpretation is:
EKG: Sinus 77, normal axis, nonspecific ST abnormality
CT:
X-rays:
Laboratory Studies: CBC unremarkable, chemistries unremarkable
Other:
� Review of other/old records: I reviewed labs from earlier this month which were also unremarkable
� Clinical information was obtained by an independent historian: EMS
� Prescriptions/Medications Considered but not given:
� Further testing considered but not performed:
RISK OF COMPLICATIONS AND/OR MORBIDITY OR MORTALITY OF PATIENT MANAGEMENT
� Social determinants of health affecting care: Lives at home and does do some palliative care.
� Discussion with other providers: Discussed with case management for possible placement.
� Escalation of care including admission/observation vs risk of discharge considered: Blood glucose found to be 137 upon arrival. I had patient go from a nearly supine to sitting position and the heart rate did not change
(remained at 80). Heart rate also did not drop. She was given IV fluids. CBC unremarkable. Physical therapy and care management both evaluated the patient in the ED. Care management indicates that since the patient has Medicare and has not had
a recent hospitalization as an inpatient, he is unable to place her at a facility. Physical therapy felt that she did recently well to continue home physical therapy. Care management indicated that there arranging for this. The patient also has
outpatient services through palliative care company.
Past History
Past History
ED Past Medical History: Cancer (Endometrial CA), HTN, NIDDM, Hypothyroidism, Psychiatric (Depression), Other (Pseudotumor cerebri, history of abdominal wall abscess, history of recurrent infected seroma, history of prolonged wound VAC for
nonhealing postsurgical abdominal wound, Idiopathic intracranial HTN, ) and Other (Diverticulitis, )
ED Past Surgical History: Appendectomy, Bowel resection (large bowel, ), Brain (Shunt), Cholecystectomy, Gynecological (Hysterectomy, PCOS), Orthopedic (Right patella removal, ) and Other (colostomy with reversal, hernia, LP shunt at Lumbar
peritoneal L3-L5 replaced 6 times, )
Social History
Tobacco: Non-smoker
Alcohol: Occasional
Drug: None
Personal: Single
Living: alone
Employment: Employed
Family History
Family History: Hypertension
Phy Exam
Physical Exam
Physical Exam:
See HPI
Course
Orders/Labs/Results
Orders:
Orders
12/12/23 09:08
Electrocardiogram (*1) Urgent
Reason for Study: Vertigo / Dizzy
12/12/23 09:09
EKG- Treatment ONCE
12/12/23 09:14
Complete Blood Count/With Diff Urgent
Comprehensive Metabolic Panel Urgent
NT-proBNP Urgent
12/12/23 09:29
Case Management Consult ONCE
Case Management Consult: Discharge Planning
PT Consult [Pt Eval And Treat] Urgent
Activity Level: Ambulate
12/12/23 10:20
Case Management Consult ONCE
Case Management Consult: [facility]
12/12/23 13:05
Urinalysis Reflex To Culture Urgent
Date Specimen was Collected: 12/12/23
Time Specimen was Collected: 13:10
Abnormal Lab Results
12/12/23 12/12/23
09:12 09:14
MCH 31.5 H pg
(27.0-31.0)
MPV 10.9 H fL
(7.4-10.4)
Potassium 3.4 L mmol/L
(3.5-5.1)
BUN 23 H mg/dl
(7-17)
Glucose 144 H mg/dl
(70-99)
Alkaline Phosphatase 138 H U/L
(38-126)
POC Glucose 137 H mg/dl
(70-99)
12/12/23 09:14
12/12/23 09:14
Vital Signs
Initial and Last Documented VS:
Initial Vital Signs
Pulse Resp Pulse Ox
79 19 97
12/12/23 09:15 12/12/23 09:15 12/12/23 09:15
Last Documented Vital Signs
Temp Pulse Resp BP Pulse Ox
97.6 F 95 22 120/81 95
12/12/23 11:51 12/12/23 12:30 12/12/23 12:30 12/12/23 12:00 12/12/23 12:30
*Critical Care Note
Total Time (30-74mins, 75-104mins- exclusive of procedures): Not Applicable
ED Attending Note
-
Portions of this chart may have been created with voice recognition software.� Occasional wrong word or��sound alike� substitutions may have occurred due to the inherent limitations of voice recognition software.
Discharge Plan
Departure
Patient Disposition: Home (Routine Discharge)
Date of Disposition: 12/12/23
Time of Disposition: 10:21
Patient with high blood pressure during this ER visit?: Yes
Discharge Problem:
Dizziness
Instructions: Dizziness, BLOOD PRESSURE
Prescriptions:
No Action
lorazepam 0.5 MG tablet
0.5 mg PO BID
Patient Comments:
11/01/21 pt picked up 10/04/21 #60
lisinopril 5 MG tablet
5 mg PO DAILY
nystatin [Nyamyc] 60 GM powder
1 applic TP DAILYPRN PRN (Reason: legs and breast)
furosemide 40 MG tablet
20 mg PO DAILY
metronidazole 500 MG tablet
500 mg PO TID
ondansetron [Zofran ODT] 8 MG tablet,disintegrating
8 mg PO BIDPRN PRN (Reason: nausea)
gabapentin 300 MG capsule
300 mg PO DAILY
levothyroxine 200 MCG tablet
300 mcg PO DAILY
oxycodone 5 MG tablet
5 mg PO TID
Patient Comments:
11/01/21 pt picked up 10/02/21 #120
zolpidem [Ambien CR] 6.25 MG tablet,ext release multiphase
6.25 mg PO HS
Patient Comments:
11/01/21 patient picked up 10/05 #30
quetiapine [Seroquel] 50 MG tablet
50 mg PO HS
insulin glargine [Lantus Solostar U-100 Insulin] 300 UNITS/3 ML insulin pen
35 units SC BID
atenolol 25 mg Tablet
25 mg PO BID
diphenoxylate-atropine [Lomotil] 2.5-0.025 mg Tablet
1 tab PO DAILY PRN (Reason: diarrhea)
acetaminophen 500 mg Tablet
500 mg PO Q6H PRN (Reason: mild pain)
aripiprazole 10 mg Tablet
10 mg PO DAILY
insulin aspart (niacinamide) 100 unit/mL (3 mL) Insulin Pen
15 unit SC TID
diphenoxylate-atropine [Lomotil] 2.5-0.025 mg tablet
1 tab PO QID PRN (Reason: diarrhea) Qty: 10 0RF
ondansetron 4 mg tablet,disintegrating
4 mg PO QID PRN (Reason: nausea and vomiting) Qty: 20 0RF
Referrals:
Iftikhar Sam MD [Family Provider] -
Activity Restrictions/Additional Instructions:
I spoke to care management who is trying to arrange home physical therapy. Your basic blood work is unremarkable. Return here if worse. We did send a urinalysis. If urine culture shows any clear sign of infection we will call you and place you
on antibiotics.
Interventions
Interventions:
*Risk Screen - Suicide Last Done: 12/12/23 09:28
*General Assessment Last Done: 12/12/23 09:28
*Neglect/Abuse Screening Last Done: 12/12/23 09:28
ED- Fall Risk Assessment Last Done: 12/12/23 09:28
*ED COVID-19 Vaccine History Last Done: 12/12/23 09:28
ED- Cardiac Assessment Last Done: 12/12/23 09:28
ED- Neurological Assessment Last Done: 12/12/23 09:28
Discharge Date and Time
Print Language: CHINESE
[2023-12-12 09:30] LABS: % Basophils 0.9 % (0-2); % Eosinophils 2.5 % (0-6); % Immature Granulocytes 0.2 % (0-0.5); % Lymphocytes 36.7 % (20.5-51.1); % Monocytes 6.5 % (1.7-9.3); % Neutrophils 53.2 % (42.2-75.2); Absolute Basophils 0.1 10^3/uL (0-0.2); Absolute Eosinophils 0.2 10^3/uL (0-0.7); Absolute Lymphocytes 3.3 10^3/uL (1.2-3.4); Absolute Monocytes 0.6 10^3/uL (0.1-0.6); Absolute Neutrophils 4.7 10^3/uL (1.4-6.5); Hematocrit 44.7 % (37.0-47.0); Hemoglobin 15.4 g/dL (12.0-16.0); Mean Corp Hgb Conc. 34.5 g/dL (33.0-37.0); Mean Corpuscular Hgb 31.5 pg (27.0-31.0); Mean Corpuscular Volume 91.4 fL (81.0-99.0); Mean Platelet Volume 10.9 fL (7.4-10.4); Nucleated Red Blood Cells % 0 %; Platelet Count 276 10^3/uL (130-400); Red Blood Cell Count 4.89 10^6/uL (4.20-5.40); Red Cell Dist. Width 13.5 % (11.5-14.5); White Blood Cell Count 8.9 10^3/uL (4.8-10.8)
[2023-12-12 09:43] LABS: ALT (SGPT) 22 U/L (0-35); AST (SGOT) 25 U/L (14-36); Albumin 4.3 g/dl (3.5-5.0); Alkaline Phosphatase 138 U/L (38-126); Blood Urea Nitrogen 23 mg/dl (7-17); Calcium 9.8 mg/dl (8.4-10.2); Carbon Dioxide 30 mmol/L (22-30); Chloride 103 mmol/L (98-107); Estimated Creatinine Clearance 67 ml/min; Glucose 144 mg/dl (70-99); Potassium 3.4 mmol/L (3.5-5.1); Sodium 139 mmol/L (135-145); Total Bilirubin 0.8 mg/dl (0.2-1.3); Total Protein 7.5 g/dl (6.3-8.2); eGFR > 60.00
[2023-12-12 09:50] LABS: NT-proBNP 98.4 pg/ml
--- NOTE | 2023-12-12 10:06 | EDRN ---
physical therapy currently at the pts bedside with the pt, the pt was able to ambulate with single point cane to the bathroom and back
--- NOTE | 2023-12-12 10:37 | CM ---
CM following re: discharge planning.
CM consulted to assist pt with discharge planning.
Reviewed pt's chart, met with pt.
Pt is a 63 year old female, arrived to ED with primary concerns of dizziness/vertigo.
Pt reports she lives alone in an apartment 1st floor, no steps to enter. Pt reports she has supportive sister, no children. pt reports she ambulates mostly with a cane, has a walker, currently with Palliative care. Pt reports she just approved
for caregiver services by [facility], equipment service associate Shahrzad Zeng [phone]. Pt reports she is approved for 15 hours of caregiver services and caregiver will start soon when she got [employer] clearance report. CM called [facility] community health service
coordinator Shahrzad and have to leave a message with a request to expedite caregiver services.
PT evaluation noted - home PT with caregiver services recommended. Pt is aware, expressed her positive feelings regarding returning back home and pt requested [facility]. A referral to [facility] made.
Please fax discharge instructions to [facility] at [phone]
D/C plan: home with [facility] and caregiver services with family support. to arrange W/C van to transport pt home.
--- NOTE | 2023-12-12 11:59 | VNURNOTE ---
Home Health Liaison met with patient in ER to discuss [facility] nurse/therapy, visits, schedule and homebound status. Patient is agreeable and understands that visits at home will be 1-3 x per week to assess and teach medical management.
[facility] brochure provided with contact information. Patient is aware that [facility] will contact them for start of care within a few days after discharge from .
[facility] referral completed in Care Port.
[2023-12-12 13:24] LABS: Urine Albumin Negative (Neg - Trace); Urine Bilirubin Negative (Negative); Urine Character Clear (Clear); Urine Color Yellow; Urine Glucose Negative (Negative); Urine Ketone Negative (Negative); Urine Leukocyte Negative (Negative); Urine Nitrite Negative (Negative); Urine Occult Blood Negative (Negative); Urine Urobilinogen Negative (Neg - 1+)
== END 2023-12-12 13:42 | disposition home or self-care (01) ==
LOC: EMR 09:07
PROVIDERS: EMERGENCY PHYSICIAN Emergency Medicine; FAMILY PHYSICIAN Family Medicine
DX: R42 Dizziness and giddiness (principal); E03.9 Hypothyroidism, unspecified; I10 Essential (primary) hypertension; E11.9 Type 2 diabetes mellitus without complications; F32.A Depression, unspecified; G93.2 Benign intracranial hypertension; K57.92 Diverticulitis of intestine, part unspecified, without perforation or abscess without bleeding; Z85.89 Personal history of malignant neoplasm of other organs and systems; Z98.0 Intestinal bypass and anastomosis status; Z90.49 Acquired absence of other specified parts of digestive tract; Z88.8 Allergy status to other drugs, medicaments and biological substances
CPT/HCPCS: 99283; 80053; 81003; 82962; 83880; 85025; 93005

== ENCOUNTER 2023-12-25 12:50 | Inpatient (IN) | payer MEDICARE, OTHER, SELFPAY ==
[2023-12-24 22:51] VITALS: BP 137/83; BMI 39.3
[2023-12-24 23:27] LABS: Hematocrit 39.2 % (37.0-47.0); Hemoglobin 13.5 g/dL (12.0-16.0); Mean Corp Hgb Conc. 34.4 g/dL (33.0-37.0); Mean Corpuscular Hgb 31.7 pg (27.0-31.0); Mean Platelet Volume 10.7 fL (7.4-10.4); Platelet Count 246 10^3/uL (130-400); Red Blood Cell Count 4.26 10^6/uL (4.20-5.40); Red Cell Dist. Width 13.6 % (11.5-14.5); White Blood Cell Count 10.3 10^3/uL (4.8-10.8)
[2023-12-24 23:42] LABS: ALT (SGPT) 16 U/L (0-35); AST (SGOT) 17 U/L (14-36); Albumin 3.9 g/dl (3.5-5.0); Alkaline Phosphatase 127 U/L (38-126); Blood Urea Nitrogen 15 mg/dl (7-17); Calcium 9.6 mg/dl (8.4-10.2); Carbon Dioxide 27 mmol/L (22-30); Chloride 106 mmol/L (98-107); Estimated Creatinine Clearance 81 ml/min; Glucose 165 mg/dl (70-99); Lipase 216 U/L (23-300); Potassium 4.4 mmol/L (3.5-5.1); Sodium 138 mmol/L (135-145); Total Bilirubin 0.8 mg/dl (0.2-1.3); Total Protein 6.7 g/dl (6.3-8.2); eGFR > 60.00
--- NOTE | 2023-12-24 23:56 | ED.GENMED ---
History of Present Illness
General
Chief Complaint: Abdominal Pain
Source: patient
Exam Limitations: none
Time Seen by Provider: 12/24/23 23:40
Nursing documentation reviewed up to this point in time: agreed with
History of Present Illness
History of Present Illness:
63-year-old female presents emerged part complaining of nausea vomiting diarrhea and abdominal pain. She feels somewhat better after vomiting. She has a small bowel fistula and is scheduled for surgery in January.
Past History
Past History
ED Past Medical History: Cancer (Endometrial CA), HTN, NIDDM, Hypothyroidism, Psychiatric (Depression), Other (Pseudotumor cerebri, history of abdominal wall abscess, history of recurrent infected seroma, history of prolonged wound VAC for
nonhealing postsurgical abdominal wound, Idiopathic intracranial HTN, ) and Other (Diverticulitis, )
ED Past Surgical History: Appendectomy, Bowel resection (large bowel, ), Brain (Shunt), Cholecystectomy, Gynecological (Hysterectomy, PCOS), Orthopedic (Right patella removal, ) and Other (colostomy with reversal, hernia, LP shunt at Lumbar
peritoneal L3-L5 replaced 6 times, )
Social History
Tobacco: Non-smoker
Alcohol: Occasional
Drug: None
Personal: Single
Living: alone
Employment: Employed
Family History
Family History: Hypertension
Review of Systems
Review of Systems
Allergies reviewed?: Yes
All Other Systems: Not applicable
Constitutional: Reports no symptoms
EENT: Reports no symptoms
Respiratory: Reports no symptoms
Cardiac: Reports no symptoms
ABD/GI: Reports abdominal pain, vomiting and diarrhea
: Reports no symptoms
Musculoskeletal: Reports no symptoms
Skin: Reports no symptoms
Neurological: Reports no symptoms
Endocrine: Reports no symptoms
Hematologic/Lymphatic: Reports no symptoms
Psychiatric: Reports no symptoms
Phy Exam
Physical Exam
Physical Exam:
Physical Exam
General: no apparent distress, not acutely ill
Neck: supple. no meningeal signs. normal posterior pharynx
Heart: s1/s2 regular rate and rhythm, no murmur. equal radial
pulses.
HEENT: Pupils equal round reactive to light, EOMI
Lungs: no acute respiratory distress. clear bilaterally
Abdomen: normal bowel sounds. Diffuse tenderness, stoma left lower quadrant, multiple healed abdominal scars
Neuro: alert and oriented. no focal neurological deficits cranial nerves II through XII intact
Skin: no rash
Psychiatric: well kept. interactive and cooperative
Extremities: no edema. no calf tenderness. negative homans. good distal pulses
Course
Orders/Labs/Results
Orders:
Orders
12/24/23 23:20
Complete Blood Count/No Diff Urgent
Comprehensive Metabolic Panel Urgent
Lipase Urgent
12/24/23 23:54
Iohexol [Omnipaque] See Protocol PO NOW STA
12/25/23 00:59
Ondansetron Injectable [Zofran] 4 mg .ROUTE .STK-MED ONE
Ondansetron Injectable [Zofran] 4 mg IV NOW STA
12/25/23 02:00
CT Abd/pel W Iv And Oral Contr Urgent
Reason For Exam: diffuse abdominal pain, diarrhea, vomiting
12/25/23 02:25
Morphine Sulfate 4 mg IV NOW STA
Abnormal Lab Results
12/24/23
23:20
MCH 31.7 H pg
(27.0-31.0)
MPV 10.7 H fL
(7.4-10.4)
Glucose 165 H mg/dl
(70-99)
Alkaline Phosphatase 127 H U/L
(38-126)
12/24/23 23:20
12/24/23 23:20
Vital Signs
Initial and Last Documented VS:
Initial Vital Signs
Temp Pulse Resp BP Pulse Ox
98.5 F 98 17 137/83 100
12/24/23 22:51 12/24/23 22:51 12/24/23 22:51 12/24/23 22:51 12/24/23 22:51
Last Documented Vital Signs
Temp Pulse Resp BP Pulse Ox
98.3 F 100 17 156/81 98
12/25/23 02:29 12/25/23 02:29 12/25/23 02:29 12/25/23 02:29 12/25/23 02:29
MDM/Problems Addressed
Differential Diagnosis Includes:
Bowel obstruction, fistula leak
MDM/Problems Addressed:
63-year-old female with constipation, abdominal pain. No signs of obstruction. Stable for discharge.
Chronic conditions affecting care: Previous abdomnial surgery (Hysterectomy)
Acute Exacerbation and/or Progression of Chronic Illness: Previous abdomnial surgery (Hysterectomy)
*Radiology
Radiology exam reviewed: radiology read reviewed (CT abdomen pelvis shows constipation, no other acute)
*Pulse Oximetry
Patient hypoxic: no
*EKG
Interpreted by ED Provider?: NA
*Pilot Boat Captain Interpretation
Rate: Pilot Boat Captain- N/A
*Critical Care Note
Total Time (30-74mins, 75-104mins- exclusive of procedures): Not Applicable
Patient Management
Social determinants of health affecting care: Living situation
Escalation/DeEscalation of care consider admission/obs:
Admit not indicated
ED Attending Note
-
Portions of this chart may have been created with voice recognition software.� Occasional wrong word or��sound alike� substitutions may have occurred due to the inherent limitations of voice recognition software.
Discharge Plan
Departure
Patient Disposition: Home (Routine Discharge)
Date of Disposition: 12/25/23
Time of Disposition: 03:13
Patient with high blood pressure during this ER visit?: Yes
Condition: Good
Discharge Problem:
Abdominal pain, Constipation
Instructions: Constipation, Adult (DC), Abdominal Pain, BLOOD PRESSURE
Prescriptions:
No Action
lorazepam 0.5 MG tablet
0.5 mg PO BID
Patient Comments:
11/01/21 pt picked up 10/04/21 #60
lisinopril 5 MG tablet
5 mg PO DAILY
nystatin [Nyamyc] 60 GM powder
1 applic TP DAILYPRN PRN (Reason: legs and breast)
furosemide 40 MG tablet
20 mg PO DAILY
metronidazole 500 MG tablet
500 mg PO TID
ondansetron [Zofran ODT] 8 MG tablet,disintegrating
8 mg PO BIDPRN PRN (Reason: nausea)
gabapentin 300 MG capsule
300 mg PO DAILY
levothyroxine 200 MCG tablet
300 mcg PO DAILY
oxycodone 5 MG tablet
5 mg PO TID
Patient Comments:
11/01/21 pt picked up 10/02/21 #120
zolpidem [Ambien CR] 6.25 MG tablet,ext release multiphase
6.25 mg PO HS
Patient Comments:
11/01/21 patient picked up 10/05 #30
quetiapine [Seroquel] 50 MG tablet
50 mg PO HS
insulin glargine [Lantus Solostar U-100 Insulin] 300 UNITS/3 ML insulin pen
35 units SC BID
atenolol 25 mg Tablet
25 mg PO BID
diphenoxylate-atropine [Lomotil] 2.5-0.025 mg Tablet
1 tab PO DAILY PRN (Reason: diarrhea)
acetaminophen 500 mg Tablet
500 mg PO Q6H PRN (Reason: mild pain)
aripiprazole 10 mg Tablet
10 mg PO DAILY
insulin aspart (niacinamide) 100 unit/mL (3 mL) Insulin Pen
15 unit SC TID
diphenoxylate-atropine [Lomotil] 2.5-0.025 mg tablet
1 tab PO QID PRN (Reason: diarrhea) Qty: 10 0RF
ondansetron 4 mg tablet,disintegrating
4 mg PO QID PRN (Reason: nausea and vomiting) Qty: 20 0RF
Referrals:
Iftikhar Sam MD [Family Provider] -
Interventions
Interventions:
*Risk Screen - Suicide Last Done: 12/24/23 22:51
*General Assessment Last Done: 12/24/23 22:51
*Neglect/Abuse Screening Last Done: 12/24/23 22:51
ED- Fall Risk Assessment Last Done: 12/25/23 02:49
*ED COVID-19 Vaccine History Last Done: 12/25/23 02:49
TD-Etslux-Aitbcjxcyt Assessment Last Done: 12/25/23 01:42
Discharge Date and Time
Print Language: DIVEHI
[2023-12-25] VITALS (11 sets, daily range): BP systolic 103–166; BP diastolic 53–81; PULSE 82–90; BMI 43.6
[2023-12-25] MEDS: OMNIPAQUE 100 ML PO (00:03)
[2023-12-25] MEDS: ZOFRAN 4 MG IV ×2 (01:04→05:59)
[2023-12-25] MEDS: MORPHINE SULFATE 4 MG IV (02:30)
--- NOTE | 2023-12-25 06:19 | ED.GENMED ---
History of Present Illness
General
Chief Complaint: Abdominal Pain
Time Seen by Provider: 12/24/23 23:40
Past History
Past History
ED Past Medical History: Cancer (Endometrial CA), HTN, NIDDM, Hypothyroidism, Psychiatric (Depression), Other (Pseudotumor cerebri, history of abdominal wall abscess, history of recurrent infected seroma, history of prolonged wound VAC for
nonhealing postsurgical abdominal wound, Idiopathic intracranial HTN, ) and Other (Diverticulitis, )
ED Past Surgical History: Appendectomy, Bowel resection (large bowel, ), Brain (Shunt), Cholecystectomy, Gynecological (Hysterectomy, PCOS), Orthopedic (Right patella removal, ) and Other (colostomy with reversal, hernia, LP shunt at Lumbar
peritoneal L3-L5 replaced 6 times, )
Social History
Tobacco: Non-smoker
Alcohol: Occasional
Drug: None
Personal: Single
Living: alone
Employment: Employed
Family History
Family History: Hypertension
Course
Orders/Labs/Results
Orders:
Orders
12/24/23 23:20
Complete Blood Count/No Diff Urgent
Comprehensive Metabolic Panel Urgent
Lipase Urgent
12/24/23 23:54
Iohexol [Omnipaque] See Protocol PO NOW STA
12/25/23 00:59
Ondansetron Injectable [Zofran] 4 mg .ROUTE .STK-MED ONE
Ondansetron Injectable [Zofran] 4 mg IV NOW STA
12/25/23 02:00
CT Abd/pel W Iv And Oral Contr Urgent
Reason For Exam: diffuse abdominal pain, diarrhea, vomiting
12/25/23 02:25
Morphine Sulfate 4 mg IV NOW STA
12/25/23 04:03
EKG [Electrocardiogram (*1)] Urgent
Reason for Study: Chest Pain
EKG- Treatment ONCE
12/25/23 05:56
Ondansetron Injectable [Zofran] 4 mg .ROUTE .STK-MED ONE
12/25/23 05:58
Ondansetron Injectable [Zofran] 4 mg IV NOW STA
Abnormal Lab Results
12/24/23
23:20
MCH 31.7 H pg
(27.0-31.0)
MPV 10.7 H fL
(7.4-10.4)
Glucose 165 H mg/dl
(70-99)
Alkaline Phosphatase 127 H U/L
(38-126)
12/24/23 23:20
12/24/23 23:20
Vital Signs
Initial and Last Documented VS:
Initial Vital Signs
Temp Pulse Resp BP Pulse Ox
98.5 F 98 17 137/83 100
12/24/23 22:51 12/24/23 22:51 12/24/23 22:51 12/24/23 22:51 12/24/23 22:51
Last Documented Vital Signs
Temp Pulse Resp BP Pulse Ox
98.3 F 97 21 156/74 96
12/25/23 02:29 12/25/23 06:00 12/25/23 06:00 12/25/23 05:58 12/25/23 06:00
ED Attending Note
-
Portions of this chart may have been created with voice recognition software.� Occasional wrong word or��sound alike� substitutions may have occurred due to the inherent limitations of voice recognition software.
Discharge Plan
Departure
Patient Disposition: Admit
Date of Disposition: 12/25/23
Time of Disposition: 03:13
Admit to: Med/Surg
Presentation/result/management discussed w/ accepting MD/DO: Hospitalist
Patient with high blood pressure during this ER visit?: Yes
Condition: Good
Discharge Problem:
Abdominal pain, Constipation
Instructions: Constipation, Adult (DC), Abdominal Pain, BLOOD PRESSURE
Prescriptions:
No Action
lorazepam 0.5 MG tablet
0.5 mg PO BID
Patient Comments:
11/01/21 pt picked up 10/04/21 #60
nystatin [Nyamyc] 60 GM powder
1 applic TP DAILYPRN PRN (Reason: legs and breast)
levothyroxine 200 MCG tablet
200 mcg PO DAILY
oxycodone 5 MG tablet
5 mg PO TID PRN (Reason: pain)
Patient Comments:
11/01/21 pt picked up 10/02/21 #120
zolpidem [Ambien CR] 6.25 MG tablet,ext release multiphase
12.5 mg PO HS
quetiapine [Seroquel] 50 MG tablet
50 mg PO HS
insulin glargine [Lantus Solostar U-100 Insulin] 300 UNITS/3 ML insulin pen
21 units SC BID
diphenoxylate-atropine [Lomotil] 2.5-0.025 mg Tablet
1 tab PO DAILY PRN (Reason: diarrhea)
acetaminophen 500 mg Tablet
500 mg PO Q6H PRN (Reason: mild pain)
insulin aspart (niacinamide) 100 unit/mL (3 mL) Insulin Pen
0 unit SC AC
Rx Instructions:
sliding scale
ondansetron 4 mg tablet,disintegrating
4 mg PO QID PRN (Reason: nausea and vomiting) Qty: 20 0RF
Trulicity 4.5 mg/0.5 mL Pen Injector
4.5 mg SC QWEEK
Tumeric Boost
1 dose PO .WEEKLY
Referrals:
Iftikhar Sam MD [Family Provider] -
Interventions
Interventions:
*Risk Screen - Suicide Last Done: 12/24/23 22:51
*General Assessment Last Done: 12/24/23 22:51
*Neglect/Abuse Screening Last Done: 12/24/23 22:51
ED- Fall Risk Assessment Last Done: 12/25/23 02:49
*ED COVID-19 Vaccine History Last Done: 12/25/23 02:49
DX-Yfopwe-Hhzagardtc Assessment Last Done: 12/25/23 03:28
Discharge Date and Time
Print Language: LATVIAN
--- NOTE | 2023-12-25 06:26 | ED.ADDNOTE ---
ED Addendum
ED Addendum
ED Addendum Note:
Patient was set to be discharged. She did have an episode of vomiting which appeared coffee-ground like. Vomitus was Hemoccult positive. Patient states that she did not feel well. EKG did not show any acute ischemia. Patient started on Protonix
and Protonix drip. Will be admitted to the hospitalist service.
[2023-12-25] MEDS: NSS 1000 IV ×2 (06:34→14:54)
[2023-12-25] MEDS: PROTONIX IV 80 MG IV (06:35)
[2023-12-25] MEDS: PROTONIX 100 IV ×2 (06:35→15:33)
[2023-12-25] MEDS: FLUSH (NSS) 1 FLUSH IV (06:45)
[2023-12-25 07:00] LABS: Troponin I < 0.012 ng/ml
--- NOTE | 2023-12-25 08:58 | CON.GI ---
Addendum entered and electronically signed by Mora Lo MD 12/25/23 20:10:
I saw and examined the patient.
The PRESSURE TEST OPERATOR or PA's note was reviewed and I agree with the note.
Comment: 63-year-old female with complex medical history including history of endometrial cancer in 2000 status post total abdominal hysterectomy, salpingo-oophorectomy and omentectomy, since then has had complicated surgical history with abdominal
wall abscess/enterocutaneous fistulous, had multiple surgeries since including sigmoid/rectal resection with anastomosis, anastomotic leak needing ileostomy/colostomy, subsequent reversal who currently follows up with Dr. Severino for small bowel
fistula, had plans for [place] drain but patient opted for palliative approach. She reports that Saturday after lunch, she started having abdominal pain in the right mid abdomen almost like sharp pain going up like a wave into the upper abdomen,
nausea, foul-smelling vomitus, dark-colored and diarrhea as well.She reports that she has previous history of diarrhea and was taking Imodium but not taken it in the last 3 weeks. Lately her stool has been a little more formed. She may have
anywhere from 1-4 bowel movements with incomplete evacuation. Some occasional wipe type bleeding. She was on oxycodone for chronic pains but lately has been taking ibuprofen 3 a day in the last 2 weeks. Upper endoscopy and colonoscopy at [facility] 2021, normal endoscopy, diverticulosis no and colonoscopy sigmoid polyp removed, patent anastomosis noted.Reviewing labs, hemoglobin normal, CMP including LFTs and lipase in normal range, CT scan of the abdomen and pelvis with IV and oral
contrast showing large amount of fecal material throughout the colon.
Previous TTG IgG in 2012 was elevated but TTG IgA in normal range.
-Abdominal pain, nausea and vomiting with diarrhea
? Feculent vomiting but no evidence of obstruction on CT scan
Large amount of stool noted in the colon suggesting constipation.
Patient reports previous history of diarrhea but unclear if that is truly overflow diarrhea rather than true diarrhea
Patient reports having normal stool after her dose of MiraLAX.
Currently on MiraLAX 17 g twice daily
Will monitor bowel movements, if no further BM, might need to give her magnesium citrate 300 mL to clear out the colon and put her on a bowel regimen.
Avoid narcotics and Imodium.
-Reported coffee-ground emesis but hemoglobin and BUN in normal range
No further vomiting at this time.
If further coffee-ground emesis, will consider upper endoscopy at that time.
Continue PPI, can changed to p.o. tomorrow
On clear liquid diet, if no further vomiting, can start low residue diet.
-Has cutaneous fistula with drainage in the left midabdomen
Consider wound care consult tomorrow
Will follow for now
Continue PPI given recent NSAID use and avoid NSAIDs.
Addendum entered and electronically signed by EUSEBIA Pritchard 12/25/23 10:39:
reviewed with nursing. Vomiting improved last few hours. Will allow clear diet, advance to ADA later today. Add Miralax BID. also add to exam Rigth abd healed fistula and left sided fistula with minimal drainage and dressing intact.
Original Note:
Consultation
-
Date/Time Consultation Requested: 12/25/23799
Date/Time Consultation Performed: 12/25/23899
Requesting Provider: Singh Nieves MD
Performing Provider: EUSEBIA Ho, Mora Lo MD
Reason for Consultation: coffee ground emesis
Medical History
Chief Complaint / HPI
Chief Complaint: nausea/vomiting/diarrhea
History of Present Illness:
Pt is a 63yo with hx endometrial CA early stage with LISSA with right ovary remaining 2000, IDDM, LP shunt, bipolar prior wang, appe, bowel resection colostomy with reversal, recurrent abdominal wall abscess with prior wound vac and recurrent
abscess, infected seroma, prolonged wound vac, SB fistula with possible plan for surgery in January with multiple recent admission with ER now with abdominal pain with nausea, vomiting and diarrhea. She was scheduled to go home but noted with
coffee ground emesis and asked to evaluate. In reviewing with patient she had endometrial surgery in [place] in 2000. 6 weeks post op noted with bowel and bladder perforation. She recalls bladder healing without intervention but bowel with initial
anastomosis with Dr. Nielsen but then anastomosis leak with period of TPN. She went for eventual colostomy then reversal but developed post-op seroma with fistula. She has multiple interventions at [facility] with initial daily weekly with
Gia but then eventual wound vac with 3 years to healing and hernia repair She unfortunately then developed right sided chronic EC fistula and has been followed by Dr. Severino. She had placement of [place] drain at one point with removal.
Prior fistulogram with communication with SB. She admits to discussion of surgery with Dr. Severino but now opting for conservative approach. She now presents with onset of nausea, vomiting with CGE, abdominal pain and loose stools. She was noted
with coffee ground emesis and pt was concern for obstructive process. She admits to loose stool yesterday last formed stool 6 days ago. She is currently off narcotics and lomotil but take Ibuprofen 3 tabs daily. She is noted with CT on
admission with no acute pathology but large amount of fecal material in colon. She admit to some swallowing difficulty on right side. She denies GERD,blood or black stools. Last EGD/colon in 2021 at [facility] recall gastritis.
06/2021 colonoscopy -[facility] Dr. Coon 5 mm polyp sigmoid colon patent anastomosis, diverticulosis distal rectum and anal verge normal.
06/[address] [facility] [address] Tinoco normal esophagus gastritis normal duodenum
Past Medical History
Past Medical History: Cancer (endometrial CA), HTN, IDDM, Psychiatric (depression, bipolar ) and Other (pseudotumor cerebri with LP shunt in place , abd wall abscess, recurrent infected seroma, prolonged wound vac for post surgical abdominal wound,
idiopathic intracranial HTN, diverticulitis , sleep apnea)
Past Surgical History: Appendectomy, Cholecystectomy, Gynecological (hysterectomy, PCOS), Orthopedic (right patella removal) and Other (bowel resection large bowel, colostomy with reversal, hernia, LP shunt at [facility] peritoneal L3-L5 replaced 6
times)
Social History
Tobacco: Non-Smoker
Alcohol: None
Drug: None
Living: Alone
Employment: Disabled
Family History
Family History: Reviewed & Not Pertinent
Allergies / Home Medications
Allergy/AdvReac Type Severity Reaction Status Date / Time
empagliflozin Allergy Unknown Unknown Verified 12/24/23 23:20
[From Jardiance]
canagliflozin [From Invokana] Allergy Hives Verified 12/24/23 23:20
metformin Allergy Unknown Verified 12/24/23 23:20
milk Allergy Unknown Verified 12/24/23 23:20
�Medication �Instructions �Recorded
lorazepam 0.5 mg tablet 0.5 mg PO BIDPRN PRN anxiety 11/30/11
levothyroxine 200 mcg tablet 200 mcg PO DAILY 11/01/21
oxycodone 5 mg tablet 5 mg PO TIDPRN PRN severe pain 11/01/21
quetiapine 50 mg tablet (Seroquel) 50 mg PO HS 11/01/21
diphenoxylate-atropine 2.5 1 tab PO QIDPRN PRN diarrhea 08/13/22
mg-0.025 mg tablet (Lomotil)
insulin aspart 0 sliding scale dose SC AC 09/27/22
(niacinamide)(U-100) 100 unit/mL(3
mL) subcutaneous pen
Tumeric Boost 1 dose PO QWEEK 12/25/23
dulaglutide 4.5 mg/0.5 mL 4.5 mg SC DENIS 12/25/23
subcutaneous pen injector
(Trulicity)
ibuprofen 200 mg tablet 600 mg PO Q6HPRN PRN mild pain 12/25/23
insulin glargine 100 unit/mL (3 21 unit SC BID 12/25/23
mL) subcutaneous pen (Basaglar
KwikPen U-100 Insulin)
ondansetron 4 mg disintegrating 4 mg PO Q8HPRN PRN nausea and 12/25/23
tablet vomiting
zolpidem 12.5 mg tablet,extended 12.5 mg PO HS 12/25/23
release,multiphase
Review of Systems
-
History Source: Patient
Constitutional: Reports Weight Loss (large volume wt loss in past ) and Chills
EENT: Reports No Symptoms
Respiratory: Reports No Symptoms
Cardiac: Reports No Symptoms
Abdomen/GI: Reports Abdominal Pain, Nausea, Vomiting, Diarrhea, Constipated and Other (coffee ground emesis )
: Reports Difficulty Voiding
Musculoskeletal: Reports No Symptoms
Skin: Reports Other (chronic fistula )
Neurological: Reports Weakness
Endocrine: Reports No Symptoms
Hematologic/Lymphatic: Reports No Symptoms
Vital Signs
Temp Pulse Resp BP Pulse Ox
98.3 F 99 17 149/68 92
12/25/23 02:29 12/25/23 08:45 12/25/23 08:45 12/25/23 08:00 12/25/23 08:45
Physical Exam
Exam
General: Well Developed, Well Nourished and No Apparent Distress
HEENT: Normocephalic and Anicteric
Respiratory: Clear
Cardiac: Regular Rhythm
GI: Soft, Non Distended and Tender (diffuse tenderness to touch )
Musculoskeletal: No Clubbing and No Cyanosis
Skin: Warm and Dry
Neuro: Awake, Alert and AO x 3
Psych: Calm
Results
WBC 10.3 10^3/uL (4.8-10.8) 12/24/23 23:20
Hgb 13.5 g/dL (12.0-16.0) 12/24/23 23:20
Hct 39.2 % (37.0-47.0) 12/24/23 23:20
MCV 92.0 fL (81.0-99.0) 12/24/23 23:20
Plt Count 246 10^3/uL (130-400) 12/24/23 23:20
Sodium 138 mmol/L (135-145) 12/24/23 23:20
Potassium 4.4 mmol/L (3.5-5.1) 12/24/23 23:20
Chloride 106 mmol/L (98-107) 12/24/23 23:20
Carbon Dioxide 27 mmol/L (22-30) 12/24/23 23:20
BUN 15 mg/dl (7-17) 12/24/23 23:20
Creatinine 0.8 mg/dL (0.6-1.0) 12/24/23 23:20
Calcium 9.6 mg/dl (8.4-10.2) 12/24/23 23:20
Total Bilirubin 0.8 mg/dl (0.2-1.3) 12/24/23 23:20
AST 17 U/L (14-36) 12/24/23 23:20
ALT 16 U/L (0-35) 12/24/23 23:20
Alkaline Phosphatase 127 U/L (38-126) H 12/24/23 23:20
Lipase 216 U/L (23-300) 12/24/23 23:20
Diagnostic Image Results:
12/25/23 CT Abd/pel W Iv And Oral Contr
No acute pathology of the abdomen or pelvis identified. Large amount fecal to throughout the colon. Progressed.
Small hiatal hernia
Prior cholecystectomy.
05/22/23 CT Abd/pelvis Wo Iv Cont
1. Extensive postoperative changes within the anterior abdominal wall with a short segment surgical drain embedded within the superficial tissue of the left midabdomen. The tip of this drain abuts a band of soft tissue attenuation similar in
appearance compared to the prior CT from 01/31/2023 which may represent scar tissue or granulation tissue. No definitive indication seen with underlying bowel or any fluid collections.
2. Additional findings detailed above.
Prior GI Procedures:
06/2021 colonoscopy -[facility] Dr. Coon 5 mm polyp sigmoid colon patent anastomosis, diverticulosis distal rectum and anal verge normal.
06/2021 EGD [facility] Dr. Tinoco normal esophagus gastritis normal duodenum
Assessment / Plan
-
Pt is a 63yo with hx IDDM, LP shunt for pseudotumor cerebri , wang, appe, and endometrial CA early stage with LISSA with right ovary remaining 2000 at [place]. 6 weeks post op noted with bowel and bladder perforation. She recalls bladder healing
without intervention but bowel with initial anastomosis with Dr. Nielsen but then anastomosis leak with period of TPN. She went for eventual colostomy then reversal but developed post-op seroma with fistula. She has multiple interventions at
[facility] with initial daily weekly with Dr. Nielsen but then eventual wound vac with 3 years to healing and hernia repair . 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 Severino. She had
placement of [place] drain at one point with removal. Prior fistulogram with communication with SB. She admits to discussion of surgery with Dr. Severino but now opting for conservative palliative approach. She now presents with onset of nausea,
vomiting with coffee ground emesis, abdominal pain and loose stools. She was noted with coffee ground emesis and pt was concern for obstructive process. She admits to loose stool prior to admission but last formed stool 6 days ago. She is
currently off narcotics and Lomotil but take Ibuprofen 3 tabs daily. She is noted with CT on admission with no acute pathology but large amount of fecal material in colon. hbg stable 13.5 on admission.
06/2021 colonoscopy -[facility] Dr. Coon 5 mm polyp sigmoid colon patent anastomosis, diverticulosis distal rectum and anal verge normal.
06/[address] [facility] [address] Tinoco normal esophagus gastritis normal duodenum
-nausea/vomiting/abdominal pain
-constipation then diarrhea with concern for increased stool burden and overflow
-coffee ground emesis - constipation related vs other
-hx endometrial CA with LISSA/left ovary removal 2000 with complicated post- op course with bowel/bladder perforation, resection with anastomotic leak, temp ostomy and chronic post-op seroma
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
other med problems:
-IDDM
-LP shunt for pseudotumor cerebri with multiple revisions
-wang
-appe
-sleep apnea
-PCOS
-depression/bipolar
PLAN:
Etiology of symptoms related to constipation with no stools for 6 days and increased stool burden on imaging vs gastritis with hx NSAID use vs less likely obstructive process
will give enema now with increased stool burden on imaging
when vomiting improved consider oral regiment
if further coffee ground or drop in hbg consider EGD with recent NSAID use
cont PPI, antiemetics
NPO til feeling improved
avoid narcotics and antidiarrheals
NSAID avoidance
pt has been following with surgery but opting for no further surgical intervention with fistula and currently following with palliative care
will follow
-
-
Thank you for consultation and allowing me to participate in the patient's care. Please call the wafer production lead worker GI physician during the after hours with any questions or concerns.
[2023-12-25] MEDS: MIRALAX 17 GRAMS PO ×2 (11:49→21:38)
--- NOTE | 2023-12-25 11:50 | HPS.HSE ---
Family Physician
-
Family Physician: Iftikhar Sam
Chief Complaint
-
Coffee-ground emesis
History of Present Illness
63 y/o F with PMHx:
DM2
Morbid obesity due to excess calories
Hypothyroidism
Depression
Enterocutaneous fistula
Who presents with chief complaints of abdominal pain, nausea, vomiting, and then coffee-ground emesis. Patient symptoms started yesterday. He reports he has chronic nausea and diffuse abdominal pain but rarely has vomiting. Yesterday evening she
had multiple episodes of vomiting she said the vomit was pink in color but no regan blood. She presented to the ER and had been discharged but before she left the ER had episode of coffee-ground emesis and was referred for admission. Denies any
shortness of breath. She does report cramping upper abdominal and retrosternal chest pain. She reports 3 weeks ago she started having blurry vision and saw an harvesting contractor and has an appointment with diabetes clinical manager. Denies headache, neck
stiffness, rash, dysuria, focal neurological deficit.
Medical History
Past Medical History
Past Medical History: Reports Other (as per HPI)
Past Surgical History: Reports Other (Appendectomy, large bowel resection, LP shunt, cholecystectomy, hysterectomy, right patella removal, colostomy with reversal)
Social History
Tobacco: Non-smoker
Alcohol: Occasional
Drug: None
Family History
Family History: Not pertinent
Allergies / Home Medications
Allergies reflects when Allergies were last updated in [facility].
Home Medications with original date entered in [facility]
Allergy/Medication List:
Gen: NAD, AAOx3.
Eyes: EOMI, PERRLA, no scleral icterus.
Neck: supple.
CV: RRR, +S1/S2, no m/r/g.
Resp: CTAB, no rales, wheezes, or rhonchi.
Abd: +BS, soft, NT, ND
Skin: No rashes.
Neuro: CN 2-12 intact, non-focal.
Psych: Normal mood and affect.
Review of Systems
-
History Source: Patient
A 12 point ROS was completed and negative except as noted: Yes
Physical Exam
Vital Signs
Vital Signs
Temp Pulse Resp BP Pulse Ox
98.3 F 96 17 130/73 96
12/25/23 02:29 12/25/23 11:00 12/25/23 11:00 12/25/23 09:00 12/25/23 09:30
Physical Exam
General: Other (.)
Laboratory Results
-
12/24/23 23:20
12/24/23 23:20
Laboratory Results
Total Bilirubin 0.8 mg/dl (0.2-1.3) 12/24/23 23:20
AST 17 U/L (14-36) 12/24/23 23:20
ALT 16 U/L (0-35) 12/24/23 23:20
Alkaline Phosphatase 127 U/L (38-126) H 12/24/23 23:20
Troponin I < 0.012 ng/ml 12/25/23 06:25
Lipase 216 U/L (23-300) 12/24/23 23:20
Impression/Plan
-
Gen: NAD, AAOx3.
Eyes: EOMI, PERRLA, no scleral icterus.
Neck: supple.
CV: RRR, +S1/S2, no m/r/g.
Resp: CTAB, no rales, wheezes, or rhonchi.
Abd: +BS, soft, diffuse tenderness to palpation, ND
Skin: No rashes.
Neuro: CN 2-12 intact, non-focal.
Psych: Normal mood and affect.
CT A/P w/IV+PO: No acute pathology of the abdomen or pelvis identified. Large amount fecal to throughout the colon. Progressed. Small hiatal hernia. Prior cholecystectomy.
Abdominal pain, nausea, vomiting, with coffee-ground emesis:
-CT A/P unremarkable, LFTs/lipase normal
-Hb stable
-cont PPI gtt
-clears/IVFs
-trend Hb
-treat constipation with Miralax
-case discussed with GI, no EGD at this time
Other problems:
DM2: Give Basaglar at half dose while on clears. SSI/accuchecks
Morbid obesity due to excess calories: Encouraged weight loss. Affects all aspects of care.
Hypothyroidism: Cont Levoxyl
Depression: cont Seroquel
Enterocutaneous fistula
DNR - confirmed with pt in the ER
Lovenox
[2023-12-25] MEDS: ROXICODONE 5 MG PO ×2 (15:33→20:00)
[2023-12-25 16:58] LABS: Glucose - Point of Care 143 mg/dl (70-99)
[2023-12-25] MEDS: NOVOLOG FLEXPEN-MODERATE RESISTANCE SC (18:11)
[2023-12-25] MEDS: LOVENOX 40 MG SC (18:12)
[2023-12-25 20:49] LABS: Hematocrit 37.2 % (37.0-47.0); Hemoglobin 12.6 g/dL (12.0-16.0)
[2023-12-25 21:31] LABS: Glucose - Point of Care 120 mg/dl (70-99)
[2023-12-25] MEDS: SEROQUEL 50 MG PO (21:38)
[2023-12-25] MEDS: AMBIEN 10 MG PO (21:38)
[2023-12-25] MEDS: LANTUS 0.12 UNITS SC (21:38)
[2023-12-25] MEDS: ATIVAN 0.5 MG PO (21:46)
[2023-12-26] MEDS: PROTONIX 100 IV ×2 (01:04→11:26)
[2023-12-26] MEDS: NSS 1000 IV ×3 (01:05→22:11)
[2023-12-26] MEDS: ZOFRAN ODT (ORALLY DISINTEGRATING) 4 MG PO (01:42)
[2023-12-26 02:22] LABS: Hematocrit 38.6 % (37.0-47.0); Hemoglobin 12.9 g/dL (12.0-16.0)
[2023-12-26] MEDS: COMPAZINE 5 MG IV (02:45)
[2023-12-26] MEDS: SYNTHROID 200 MCG PO (06:17)
--- NOTE | 2023-12-26 07:11 | W.PN.HOSP.TC ---
Today's Communication/Plan
-
see bold
Assessment / Plan
Assessment / Plan
Gen: NAD, AAOx3.
Eyes: EOMI, PERRLA, no scleral icterus.
Neck: supple.
CV: remains RRR, +S1/S2, no m/r/g.
Resp: remains CTAB, no rales, wheezes, or rhonchi.
Abd: +BS, soft, tenderness to light palpation, ND
Skin: No rashes.
Neuro: CN 2-12 intact, non-focal.
Psych: Normal mood and affect.
CT A/P w/IV+PO: No acute pathology of the abdomen or pelvis identified. Large amount fecal to throughout the colon. Progressed. Small hiatal hernia. Prior cholecystectomy.
Abdominal pain, nausea, vomiting, with coffee-ground emesis:
-CT A/P unremarkable, LFTs/lipase normal
-Hb stable
-cont PPI gtt
-clears/IVFs
-treat constipation with Miralax (may need something stronger such as Mg-citrate)
-GI following. Pt reports further coffee ground emesis overnight and may need EGD.
Other problems:
DM2: Give Basaglar at half dose while on clears. SSI/accuchecks
Morbid obesity due to excess calories: Encouraged weight loss. Affects all aspects of care.
Hypothyroidism: Cont Levoxyl
Depression: cont Seroquel
Enterocutaneous fistula
DNR - confirmed with pt in the ER
Lovenox
Anticipated Discharge: Within 24 hours
Subjective/Interval History
-
Date of Service: December 26, 2023
Pt reports abd pain and vomiting with coffee ground emesis overnight.
Objective Data
-
Labs:
Laboratory Results
12/25/23 12/25/23 12/26/23
14:25 20:43 02:16
WBC
Hgb Cancelled 12.6 12.9
Hct Cancelled 37.2 38.6
Plt Count
Sodium
Potassium
Chloride
Carbon Dioxide
BUN
Creatinine
Glucose
Calcium
12/26/23 12/26/23
06:00 08:25
WBC Pending
Hgb Pending Pending
Hct Pending Pending
Plt Count Pending
Sodium Pending
Potassium Pending
Chloride Pending
Carbon Dioxide Pending
BUN Pending
Creatinine Pending
Glucose Pending
Calcium Pending
Vital Signs:
Vital Signs
Temp Pulse Resp BP Pulse Ox
98.5 F 84 18 103/53 95
12/25/23 23:40 12/25/23 23:40 12/25/23 23:40 12/25/23 23:40 12/25/23 23:40
I&O
12/25/23 12/26/23 12/27/23
06:59 06:59 06:59
Intake Total 972 / 972
Output Total 100 / 100
Balance 872 / 872
[2023-12-26 08:27] LABS: Glucose - Point of Care 154 mg/dl (70-99)
[2023-12-26] MEDS: MIRALAX 17 GRAMS PO ×2 (08:31→20:29)
[2023-12-26] MEDS: ROXICODONE 5 MG PO ×2 (08:31→22:18)
[2023-12-26] MEDS: LANTUS 0.12 UNITS SC ×2 (08:31→22:11)
[2023-12-26] MEDS: NOVOLOG FLEXPEN-MODERATE RESISTANCE 1 UNITS SC ×2 (08:33→12:44)
[2023-12-26 08:45] VITALS: BP 105/63; BP 152/74; BP 156/69; PULSE 116; PULSE 90; PULSE 93
--- NOTE | 2023-12-26 09:10 | WOUNDNOTE ---
ABDOMEN (L SIDE)(enterocutaneous fistula site)
--- NOTE | 2023-12-26 09:40 | WOUNDNOTE ---
[facility] RN note: Patient admitted with nausea/vomiting. Patient lives at home.
See H&P for complete history.
PMH: DM, obesity, depression, enterocutaneous fistula, appendectomy, large bowel resection, LP shunt 1990, cholecystectomy, hysterectomy, R patella removed, colostomy and colostomy reversal.
Wound Location and type/assessment: Patient admitted with: mild moisture associated skin damage at L abdominal fistula site. Patient treats TID and prn with baby powder and dry gauze. She has tried pouching site with no success. She stated the
powder works better than ointment. Mild back rash noted. Trace LE edema. Feet warm. Patient interested in knee high compression stockinet. Patient denies latex allergy.
Appetite: currently on clear liquid diet. GI following.
Pressure redistribution devices in place: Advanta with Accumax mattress. Patient is ambulatory and moves self in bed.
Plan: Local skin care done around fistula site. Bilateral knee high Tubigrip (size F from toes to ankle; size G from ankle to just below the knee) applied after updating and confirming with Dr. Nieves.
Care plan to be updated. Will update AWAIS Monae.
--- NOTE | 2023-12-26 11:08 | W.PN.GI.CBS2 ---
Addendum entered and electronically signed by Mora Lo MD 12/26/23 12:53:
I saw and examined the patient.
The SUPERVISOR GARAGE or PA's note was reviewed and I agree with the note.
Comment: Patient reports multiple episodes of bilious vomiting last night, had 1 bowel movement but never received the enema. No abdominal pain but has some nausea.
Hemoglobin stable, normal BUN. Likely cause of vomiting is significant constipation causing backup and also CT scan showing full stomach. Agree with aggressive bowel regimen with milk of molasses enemas to start with and MiraLAX twice a day. Will
keep her on clear liquid diet for now and once nausea and vomiting is better, will advance diet as tolerated. Follow-up with abdominal x-ray in a.m.
If nausea and vomiting continues, will need NG tube for decompression and to prevent aspiration.
Will change Protonix to 40 mg IV twice daily.
Reviewed with patient to hold off on Imodium as what she is having could be overflow diarrhea rather than true diarrhea. Avoid narcotics as well.
Will follow
Original Note:
Today's Communication / Plan
-
Milk and molasses enemas today, then start Miralax
Abd Xr in am
Assessment / Plan
-
Pt is a 63yo with hx IDDM, LP shunt for pseudotumor cerebri , wang, appe, and endometrial CA early stage with LISSA with right ovary remaining 2001 at [place]. 6 weeks post op noted with bowel and bladder perforation. She recalls bladder healing
without intervention but bowel with initial anastomosis with Dr. Nielsen but then anastomosis leak with period of TPN. She went for eventual colostomy then reversal but developed post-op seroma with fistula. She has multiple interventions at
[facility] with initial daily weekly with Dr. Nielsen but then eventual wound vac with 3 years to healing and hernia repair . 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 Severino. She had
placement of [place] drain at one point with removal. Prior fistulogram with communication with SB. She admits to discussion of surgery with Dr. Severino but now opting for conservative palliative approach. She now presents with onset of nausea,
vomiting with coffee ground emesis, abdominal pain and loose stools. She was noted with coffee ground emesis and pt was concern for obstructive process. She admits to loose stool prior to admission but last formed stool 6 days ago. She is
currently off narcotics and Lomotil but take Ibuprofen 3 tabs daily. She is noted with CT on admission with no acute pathology but large amount of fecal material in colon. hbg stable 13.5 on admission.
06/2021 colonoscopy -[facility] Dr. Coon 5 mm polyp sigmoid colon patent anastomosis, diverticulosis distal rectum and anal verge normal.
06/[address] [facility] [address] Tinoco normal esophagus gastritis normal duodenum
-nausea/vomiting/abdominal pain
-constipation then diarrhea with concern for increased stool burden and overflow
-coffee ground emesis - constipation related vs other
-hx endometrial CA with LISSA/left ovary removal 2000 with complicated post- op course with bowel/bladder perforation, resection with anastomotic leak, temp ostomy and chronic post-op seroma
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
other med problems:
-IDDM
-LP shunt for pseudotumor cerebri with multiple revisions
-wang
-appe
-sleep apnea
-PCOS
-depression/bipolar
PLAN:
Etiology of symptoms related to constipation with no stools for 6 days and increased stool burden on imaging, Debris seen in stomach on CT imaging. Recent NSAID use.
Start milk and molasses enemas twice today followed by Miralax BID
cont PPI, antiemetics
Only minimal clear liquid diet as patient still with vomiting. Discussed with patient if this continues would require NGT.
Abd XR in the am
avoid narcotics and antidiarrheals
NSAID avoidance
pt has been following with surgery but opting for no further surgical intervention with fistula and currently following with palliative care
will follow
Subjective
Subjective
Date of Service: December 26, 2023
Patient with green liquid vomiting this am. Trying clear but still with nausea. Reviewed CT scan and patient stomach is completely filled with debris. colon is also completely full of stool. Will require aggressive bowel regimen.
Objective
Data Reviewed
Laboratory Data:
Laboratory Results
Total Bilirubin 0.8 mg/dl (0.2-1.3) 12/24/23 23:20
AST 17 U/L (14-36) 12/24/23 23:20
ALT 16 U/L (0-35) 12/24/23 23:20
Alkaline Phosphatase 127 U/L (38-126) H 12/24/23 23:20
Lipase 216 U/L (23-300) 12/24/23 23:20
Vital Signs and I&O:
Vital Signs
Temp Pulse Resp BP Pulse Ox
98.4 F 90 20 156/69 97
12/26/23 08:45 12/26/23 08:45 12/26/23 08:45 12/26/23 08:45 12/26/23 08:45
I&O
12/25/23 12/26/23 12/27/23
06:59 06:59 06:59
Intake Total 972 / 972
Output Total 100 / 100
Balance 872 / 872
Physical Exam
Physical Exam
HEENT: Anicteric
Cardiology: Normal Sinus Rhythm
Pulmonary: Clear (anterior)
GI: Soft, Non Distended, Non Tender and Normal Bowel Sounds
Neuro: Non Focal
[2023-12-26 11:24] VITALS: BMI 43.6
[2023-12-26 11:52] LABS: Hematocrit 39.3 % (37.0-47.0); Hemoglobin 13.1 g/dL (12.0-16.0); Mean Corp Hgb Conc. 33.3 g/dL (33.0-37.0); Mean Corpuscular Hgb 32.3 pg (27.0-31.0); Mean Corpuscular Volume 96.8 fL (81.0-99.0); Mean Platelet Volume 10.9 fL (7.4-10.4); Platelet Count 216 10^3/uL (130-400); Red Blood Cell Count 4.06 10^6/uL (4.20-5.40); Red Cell Dist. Width 13.4 % (11.5-14.5); White Blood Cell Count 9.9 10^3/uL (4.8-10.8)
[2023-12-26 12:09] LABS: Blood Urea Nitrogen 11 mg/dl (7-17); Carbon Dioxide 26 mmol/L (22-30); Chloride 106 mmol/L (98-107); Estimated Creatinine Clearance 86 ml/min; Glucose 191 mg/dl (70-99); Potassium 4.3 mmol/L (3.5-5.1); Sodium 136 mmol/L (135-145); eGFR > 60.00
[2023-12-26 12:41] LABS: Glucose - Point of Care 180 mg/dl (70-99)
[2023-12-26 13:03] LABS: Glycohemoglobin (HgbA1c) 8.9 % (4.0-5.6)
[2023-12-26 15:32] VITALS: BP 131/54
--- NOTE | 2023-12-26 16:21 | CM ---
Patient seen at bedside.
DX: coffee ground emesis
Patient lives alone in 1 floor apartment.
Patient was on service with [facility] prior to hospitalization. Notified liaison.
Has 40 hr/wk (8 hrs/day) caregivers through [facility] [employer].
Shahrzadsai Chapman ([facility] direct care professional) [phone]
Patient states [facility] [employer] pays for transportation upon discharge.
PCP: Iftikhar Sam
Pharmacy: [facility]
PLAN: Discharge to home when stable.
[2023-12-26 17:27] LABS: Glucose - Point of Care 128 mg/dl (70-99)
[2023-12-26] MEDS: NOVOLOG FLEXPEN-MODERATE RESISTANCE SC (17:30)
[2023-12-26] MEDS: NSS (PRESERVATIVE FREE) 10 ML IV (20:27)
[2023-12-26] MEDS: PROTONIX IV 40 MG IV (20:28)
[2023-12-26 21:32] LABS: Glucose - Point of Care 132 mg/dl (70-99)
[2023-12-26] MEDS: SEROQUEL 50 MG PO (22:18)
[2023-12-26] MEDS: AMBIEN 10 MG PO (22:18)
[2023-12-26] MEDS: ATIVAN 0.5 MG PO (22:18)
[2023-12-26 23:00] VITALS: BP 178/85
[2023-12-27] MEDS: SYNTHROID 200 MCG PO (05:10)
[2023-12-27 07:34] VITALS: BP 133/66
[2023-12-27 08:07] LABS: Glucose - Point of Care 103 mg/dl (70-99)
[2023-12-27 08:22] LABS: Glucose - Point of Care 98 mg/dl (70-99)
[2023-12-27] MEDS: NOVOLOG FLEXPEN-MODERATE RESISTANCE SC ×3 (08:32→17:27)
[2023-12-27] MEDS: NSS 1000 IV ×3 (08:33→22:31)
[2023-12-27] MEDS: NSS (PRESERVATIVE FREE) 10 ML IV ×2 (08:34→21:19)
[2023-12-27] MEDS: LANTUS 0.12 UNITS SC ×2 (08:34→22:29)
[2023-12-27] MEDS: PROTONIX IV 40 MG IV ×2 (08:35→21:17)
[2023-12-27] MEDS: MIRALAX 17 GRAMS PO ×2 (08:35→21:15)
[2023-12-27 10:07] LABS: Hematocrit 38.4 % (37.0-47.0); Hemoglobin 12.6 g/dL (12.0-16.0); Mean Corp Hgb Conc. 32.8 g/dL (33.0-37.0); Mean Corpuscular Hgb 32.1 pg (27.0-31.0); Platelet Count 203 10^3/uL (130-400); Red Blood Cell Count 3.92 10^6/uL (4.20-5.40); Red Cell Dist. Width 13.5 % (11.5-14.5); White Blood Cell Count 6.6 10^3/uL (4.8-10.8)
--- NOTE | 2023-12-27 10:44 | W.PN.HOSP.TC ---
Today's Communication/Plan
-
see bold
Assessment / Plan
Assessment / Plan
Gen: NAD, AAOx3.
Eyes: EOMI, PERRLA, no scleral icterus.
Neck: supple.
CV: Continues to remain RRR, +S1/S2, no m/r/g.
Resp: Continues to CTAB, no rales, wheezes, or rhonchi.
Abd: Remains +BS, soft, tenderness to light palpation, ND
Skin: No rashes.
Neuro: CN 2-12 intact, non-focal.
Psych: Normal mood and affect.
CT A/P w/IV+PO: No acute pathology of the abdomen or pelvis identified. Large amount fecal to throughout the colon. Progressed. Small hiatal hernia. Prior cholecystectomy.
Abdominal pain, nausea, vomiting, with feculent emesis:
-CT A/P unremarkable, LFTs/lipase normal
-Hb stable
-cont PPI gtt
-clears/IVFs
-treat constipation with Miralax
-s/p enema 12/26/23
-GI following. Case discussed with Dr. Lo on 12/26/23. She felt that the patient did not actually have coffee ground emesis but feculent emesis.
Other problems:
DM2: Give Basaglar at half dose while on clears. SSI/accuchecks
Morbid obesity due to excess calories: Encouraged weight loss. Affects all aspects of care.
Hypothyroidism: Cont Levoxyl
Depression: cont Seroquel
Enterocutaneous fistula
DNR - confirmed with pt in the ER
Lovenox
Anticipated Discharge: Within 24 hours
Subjective/Interval History
-
Date of Service: December 27, 2023
No vomiting since yesterday. Abdominal pain remains worse than her baseline. She had a bowel movement since yesterday.
Objective Data
-
Labs:
Laboratory Results
12/27/23
09:17
WBC 6.6
Hgb 12.6
Hct 38.4
Plt Count 203
Sodium Pending
Potassium Pending
Chloride Pending
Carbon Dioxide Pending
BUN Pending
Creatinine Pending
Glucose Pending
Calcium Pending
Vital Signs:
Vital Signs
Temp Pulse Resp BP Pulse Ox
97.8 F 79 16 133/66 99
12/27/23 07:34 12/27/23 07:34 12/27/23 07:34 12/27/23 07:34 12/27/23 07:34
I&O
12/26/23 12/27/23 12/28/23
06:59 06:59 06:59
Intake Total 972 / 972 2280 / 2280
Output Total 100 / 100
Balance 872 / 872 0 / 2280
--- NOTE | 2023-12-27 11:11 | CM ---
Addendum entered by Jen Hernandez 12/27/23 14:42:
Plan home with Return of care with VN
Original Note:
Patient seen bedside.
Left VM for heel caser from [facility] Shahrzad Chapman P# [phone]
Spoke with Ki from [facility] at [phone], verified private caregivers 40 hours per week thru [employer] p# [phone].
Per Eanmalathi transportation home from hospital and rehab is not a covered benefit. They refer out to [employer] p# [phone].
TC to [employer] P# [phone], spoke with Ilana, they do not service this area and we would just schedule with our transport company and call them back with the info so they could send paperwork to cover if they have a benefit. However, in order to
qualify for insurance payment Patient would need to be totally non ambulatory.
Discussed with patient, her caregiver is currently on vacation.
Patient agreeable to pay for [employer] van if she cannot get a ride home, however would like to be billed instead.
Patient will try to secure a ride home from a friend.
PT/OT ordered (P).
Referral to VN
Per patient decreased dizziness today, but not ambulating well.
Plan: home with private caregivers, VN. patient will need transportation (friend vs [employer] van)
--- NOTE | 2023-12-27 11:19 | VNURNOTE ---
Chart reviewed. Patient is [facility] with [facility] - nrsg, PT, OT. Resumption referral placed in [facility], will monitor therapy's recs.
--- NOTE | 2023-12-27 11:39 | W.PN.GI.CBS2 ---
Addendum entered and electronically signed by Mariangel Zelaya MD 12/27/23 18:25:
I saw and examined the patient.
The MANIFOLD BUILDER's note was reviewed and I agree with the note.
Comment: Constipation no bowel obstruction noted on CT and x-ray no further vomiting she does have chronic abdominal pain, continue bowel regimen she did have bowel movement after receiving milk of molasses enemas, will give mag citrate today,
continue MiraLAX bid and senna at bedtime added
Original Note:
Today's Communication / Plan
-
vomiting improved but still feeling full
follow up abd film with moderate stool burden
+ stool with enema will give mag citrate to continue to clear stool
cont Miralax BID and add senna at HS
limit narcotics and antidiarrheals
NSAID avoidance
pt has been following with surgery but opting for no further surgical intervention with fistula and currently following with palliative care
Assessment / Plan
-
Pt is a 63yo with hx IDDM, LP shunt for pseudotumor cerebri , wang, appe, and endometrial CA early stage with LISSA with right ovary remaining 2001 at [place]. 6 weeks post op noted with bowel and bladder perforation. She recalls bladder healing
without intervention but bowel with initial anastomosis with Dr. Nielsen but then anastomosis leak with period of TPN. She went for eventual colostomy then reversal but developed post-op seroma with fistula. She has multiple interventions at
[facility] with initial daily weekly with Dr. Nielsen but then eventual wound vac with 3 years to healing and hernia repair . 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 Severino. She had
placement of [place] drain at one point with removal. Prior fistulogram with communication with SB. She admits to discussion of surgery with Dr. Severino but now opting for conservative palliative approach. She now presents with onset of nausea,
vomiting with coffee ground emesis, abdominal pain and loose stools. She was noted with coffee ground emesis and pt was concern for obstructive process. She admits to loose stool prior to admission but last formed stool 6 days ago. She is
currently off narcotics and Lomotil but take Ibuprofen 3 tabs daily. She is noted with CT on admission with no acute pathology but large amount of fecal material in colon. hbg stable 13.5 on admission.
06/2021 colonoscopy -[facility] Dr. Coon 5 mm polyp sigmoid colon patent anastomosis, diverticulosis distal rectum and anal verge normal.
06/[address] [facility] [address] Tinoco normal esophagus gastritis normal duodenum
12/24 CT A/p
No acute pathology of the abdomen or pelvis identified. Large amount fecal to throughout the colon. Progressed.
Small hiatal hernia
Prior cholecystectomy.
12/26 obstr series
1. No acute cardiopulmonary process.
2. Non-specific bowel gas pattern without signs of obstruction.
3. Moderate colonic stool burden, similar to prior.
-nausea/vomiting/abdominal pain
-constipation then diarrhea with concern for increased stool burden and overflow
-coffee ground emesis - constipation related vs other
-hx endometrial CA with LISSA/left ovary removal 2000 with complicated post- op course with bowel/bladder perforation, resection with anastomotic leak, temp ostomy and chronic post-op seroma
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
other med problems:
-IDDM
-LP shunt for pseudotumor cerebri with multiple revisions
-wang
-appe
-sleep apnea
-PCOS
-depression/bipolar
PLAN:
vomiting improved but still feeling full
follow up abd film with moderate stool burden
+ stool with enema will give mag citrate to continue to clear stool
cont Miralax BID and add senna at HS
limit narcotics and antidiarrheals
NSAID avoidance
pt has been following with surgery but opting for no further surgical intervention with fistula and currently following with palliative care
Subjective
Subjective
Date of Service: December 27, 2023
clear diet denies further vomiting, some stool with several enemas given
Objective
Data Reviewed
Laboratory Data:
Laboratory Results
12/27/23 09:17
Laboratory Results
Total Bilirubin 0.8 mg/dl (0.2-1.3) 12/24/23 23:20
AST 17 U/L (14-36) 12/24/23 23:20
ALT 16 U/L (0-35) 12/24/23 23:20
Alkaline Phosphatase 127 U/L (38-126) H 12/24/23 23:20
Lipase 216 U/L (23-300) 12/24/23 23:20
Vital Signs and I&O:
Vital Signs
Temp Pulse Resp BP Pulse Ox
97.8 F 79 16 133/66 99
12/27/23 07:34 12/27/23 07:34 12/27/23 07:34 12/27/23 07:34 12/27/23 07:34
I&O
12/26/23 12/27/23 12/28/23
06:59 06:59 06:59
Intake Total 972 / 972 2280 / 2280
Output Total 100 / 100
Balance 872 / 872 2280 / 2280
Physical Exam
Physical Exam
HEENT: Anicteric and Moist mucous membranes
Cardiology: Normal Sinus Rhythm
Pulmonary: Clear
GI: Soft, Non Distended, Tender (minimal ) and Other (large abdomen with minimal drainage from chronic fistula )
Extremities: No Edema
Neuro: Non Focal
[2023-12-27 11:40] LABS: Blood Urea Nitrogen 7 mg/dl (7-17); Calcium 9.2 mg/dl (8.4-10.2); Carbon Dioxide 24 mmol/L (22-30); Chloride 108 mmol/L (98-107); Estimated Creatinine Clearance 86 ml/min; Glucose 104 mg/dl (70-99); Potassium 4.2 mmol/L (3.5-5.1); Sodium 139 mmol/L (135-145); eGFR > 60.00
[2023-12-27 12:00] LABS: Glucose - Point of Care 109 mg/dl (70-99)
[2023-12-27 12:14] VITALS: BP 151/89; BP 160/87; BP 163/85; PULSE 80; O2SAT 95
[2023-12-27] MEDS: CITROMA 300 ML PO (12:19)
[2023-12-27 16:00] VITALS: BP 138/86
[2023-12-27 17:22] LABS: Glucose - Point of Care 114 mg/dl (70-99)
[2023-12-27] MEDS: SEROQUEL 50 MG PO (21:16)
[2023-12-27] MEDS: AMBIEN 10 MG PO (21:17)
[2023-12-27] MEDS: ATIVAN 0.5 MG PO (21:17)
[2023-12-27 21:43] LABS: Glucose - Point of Care 92 mg/dl (70-99)
[2023-12-27] MEDS: SENOKOT 17.2 MG PO (22:31)
[2023-12-27 23:33] VITALS: BP 124/70
[2023-12-28] MEDS: SYNTHROID 200 MCG PO (05:55)
[2023-12-28] MEDS: ROXICODONE 5 MG PO (05:56)
[2023-12-28 07:00] VITALS: BP 141/73
[2023-12-28 08:00] LABS: Glucose - Point of Care 98 mg/dl (70-99)
[2023-12-28] MEDS: NOVOLOG FLEXPEN-MODERATE RESISTANCE SC ×2 (09:04→16:50)
[2023-12-28] MEDS: LANTUS 0.12 UNITS SC ×2 (09:05→19:55)
[2023-12-28] MEDS: MIRALAX 17 GRAMS PO ×2 (09:05→19:52)
[2023-12-28] MEDS: PROTONIX IV 40 MG IV ×2 (09:06→19:53)
[2023-12-28] MEDS: NSS (PRESERVATIVE FREE) 10 ML IV ×2 (09:06→19:53)
[2023-12-28 09:20] LABS: Hematocrit 36.1 % (37.0-47.0); Hemoglobin 12.4 g/dL (12.0-16.0); Mean Corp Hgb Conc. 34.3 g/dL (33.0-37.0); Mean Corpuscular Hgb 31.7 pg (27.0-31.0); Mean Corpuscular Volume 92.3 fL (81.0-99.0); Platelet Count 225 10^3/uL (130-400); Red Blood Cell Count 3.91 10^6/uL (4.20-5.40); Red Cell Dist. Width 13.5 % (11.5-14.5); White Blood Cell Count 6.2 10^3/uL (4.8-10.8)
[2023-12-28 09:57] LABS: Blood Urea Nitrogen 8 mg/dl (7-17); Calcium 9.1 mg/dl (8.4-10.2); Carbon Dioxide 26 mmol/L (22-30); Chloride 107 mmol/L (98-107); Estimated Creatinine Clearance 86 ml/min; Glucose 122 mg/dl (70-99); Sodium 137 mmol/L (135-145); eGFR > 60.00
--- NOTE | 2023-12-28 10:11 | W.PN.HOSP.TC ---
Today's Communication/Plan
-
see bold
Assessment / Plan
Assessment / Plan
Gen: remains NAD, AAOx3.
Eyes: EOMI, PERRLA, no scleral icterus.
Neck: supple.
CV: RRR, +S1/S2, no m/r/g.
Resp: CTAB, no rales, wheezes, or rhonchi.
Abd: +BS, soft, NT to light palpation, ND
Skin: No rashes.
Neuro: CN 2-12 intact, non-focal.
Psych: Normal mood and affect.
CT A/P w/IV+PO: No acute pathology of the abdomen or pelvis identified. Large amount fecal to throughout the colon. Progressed. Small hiatal hernia. Prior cholecystectomy.
Abdominal pain, nausea, vomiting, with feculent emesis:
-CT A/P unremarkable, LFTs/lipase normal
-Hb stable
-was on PPI gtt, now on PPI BID
-GI following. Case discussed with Dr. Lo on 12/26/23. She felt that the patient did not actually have coffee ground emesis but feculent emesis.
-advanced to full liquids, stop IVFs
-treat constipation with Miralax (also received a dose of Mg-citrate)
-s/p enema 12/26/23
Other problems:
DM2: Give Basaglar at half dose for now based on accuchecks. SSI/accuchecks
Morbid obesity due to excess calories: Encouraged weight loss. Affects all aspects of care.
Hypothyroidism: Cont Levoxyl
Depression: cont Seroquel
Enterocutaneous fistula
DNR - confirmed with pt in the ER
Lovenox
Anticipated Discharge: Within 24 hours
Subjective/Interval History
-
Date of Service: December 28, 2023
Patient still complains of abdominal discomfort. Is having bowel movements. States that she 'cannot eat.' States that when she eats the food comes back up into her esophagus and mouth.
Objective Data
-
Labs:
Laboratory Results
12/28/23
08:36
WBC 6.2
Hgb 12.4
Hct 36.1 L
Plt Count 225
Sodium 137
Potassium 4.0
Chloride 107
Carbon Dioxide 26
BUN 8
Creatinine 0.8
Glucose 122 H
Calcium 9.1
Vital Signs:
Vital Signs
Temp Pulse Resp BP Pulse Ox
97.6 F 85 18 141/73 95
12/28/23 07:00 12/28/23 07:00 12/28/23 07:00 12/28/23 07:00 12/28/23 07:00
I&O
12/27/23 12/28/23 12/29/23
06:59 06:59 06:59
Intake Total 2280 / 2280 1080 / 1080
Balance 2280 / 2280 1080 / 1080
[2023-12-28 12:11] LABS: Glucose - Point of Care 192 mg/dl (70-99)
--- NOTE | 2023-12-28 12:20 | W.PN.GI.CBS2 ---
Today's Communication / Plan
-
Continue bowel regimen
Assessment / Plan
-
Pt is a 63yo with hx IDDM, LP shunt for pseudotumor cerebri , wang, appe, and endometrial CA early stage with LISSA with right ovary remaining 2001 at [place]. 6 weeks post op noted with bowel and bladder perforation. She recalls bladder healing
without intervention but bowel with initial anastomosis with Dr. Nielsen but then anastomosis leak with period of TPN. She went for eventual colostomy then reversal but developed post-op seroma with fistula. She has multiple interventions at
[facility] with initial daily weekly with Dr. Nielsen but then eventual wound vac with 3 years to healing and hernia repair . 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 Severino. She had
placement of [place] drain at one point with removal. Prior fistulogram with communication with SB. She admits to discussion of surgery with Dr. Severino but now opting for conservative palliative approach. She now presents with onset of nausea,
vomiting with coffee ground emesis, abdominal pain and loose stools. She was noted with coffee ground emesis and pt was concern for obstructive process. She admits to loose stool prior to admission but last formed stool 6 days ago. She is
currently off narcotics and Lomotil but take Ibuprofen 3 tabs daily. She is noted with CT on admission with no acute pathology but large amount of fecal material in colon. hbg stable 13.5 on admission.
06/2021 colonoscopy -[facility] Dr. Coon 5 mm polyp sigmoid colon patent anastomosis, diverticulosis distal rectum and anal verge normal.
06/[address] [facility] [address] Tinoco normal esophagus gastritis normal duodenum
12/24 CT A/p
No acute pathology of the abdomen or pelvis identified. Large amount fecal to throughout the colon. Progressed.
Small hiatal hernia
Prior cholecystectomy.
12/26 obstr series
1. No acute cardiopulmonary process.
2. Non-specific bowel gas pattern without signs of obstruction.
3. Moderate colonic stool burden, similar to prior.
-nausea/vomiting/abdominal pain
-constipation then diarrhea with concern for increased stool burden and overflow
-coffee ground emesis - constipation related vs other
-hx endometrial CA with LISSA/left ovary removal 2000 with complicated post- op course with bowel/bladder perforation, resection with anastomotic leak, temp ostomy and chronic post-op seroma
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
other med problems:
-IDDM
-LP shunt for pseudotumor cerebri with multiple revisions
-wang
-appe
-sleep apnea
-PCOS
-depression/bipolar
PLAN:
vomiting improved
Constipation no bowel obstruction noted on CT and x-ray
she does have chronic abdominal pain, continue bowel regimen she did have bowel movement after receiving milk of molasses enemas and mag citrate, continue MiraLAX bid and senna at bedtime
limit narcotics and antidiarrheals
NSAID avoidance
pt has been following with surgery but opting for no further surgical intervention with fistula and currently following with palliative care
Patient stable for DC from GI perspective and she has an appointment in January to follow-up with Dr. Severino. Discussed with Dr. Nieves when I told patient she was stable for DC she got angry and says she is going to appeal and wants a social
worker to see her.
Will s/o and will be available as needed
Subjective
Subjective
Date of Service: December 28, 2023
No hematemesis, hemoglobin remained stable, having bowel movements after receiving enemas, magnesium citrate, MiraLAX twice daily and senna at bedtime, complains of decreased appetite and has chronic abdominal pain.
Objective
Data Reviewed
Laboratory Data:
Laboratory Results
12/28/23 08:36
12/28/23 08:36
Laboratory Results
Total Bilirubin 0.8 mg/dl (0.2-1.3) 12/24/23 23:20
AST 17 U/L (14-36) 12/24/23 23:20
ALT 16 U/L (0-35) 12/24/23 23:20
Alkaline Phosphatase 127 U/L (38-126) H 12/24/23 23:20
Lipase 216 U/L (23-300) 12/24/23 23:20
Vital Signs and I&O:
Vital Signs
Temp Pulse Resp BP Pulse Ox
97.6 F 85 18 141/73 95
12/28/23 07:00 12/28/23 07:00 12/28/23 07:00 12/28/23 07:00 12/28/23 07:00
I&O
12/27/23 12/28/23 12/29/23
06:59 06:59 06:59
Intake Total 2280 / 2280 1080 / 1080
Balance 2280 / 2280 1080 / 1080
Physical Exam
Physical Exam
Cardiology: Normal Sinus Rhythm
Pulmonary: Clear
GI: Soft, Non Distended and Tender (mild lower tenderness)
--- NOTE | 2023-12-28 13:07 | W.PN.UPDATE ---
Update Note
Progress Note Update
Case discussed at length with Dr. Zelaya and the pt is medically cleared for discharge. RN updated. Discussed with CM.
[2023-12-28] MEDS: NOVOLOG FLEXPEN-MODERATE RESISTANCE 1 UNITS SC (13:14)
--- NOTE | 2023-12-28 14:51 | CM ---
Met with patient at bedside to discuss discharge plan
IMM benefit explained; form signed @ [id number]
Patient reported that she is appealing the discharge and was calling Miryam as I left the room
Attending physician notified
[2023-12-28 15:00] VITALS: BP 137/76
--- NOTE | 2023-12-28 16:24 | CHAP ---
Doe had requested a chemical processing supervisor visit. She has had to overcome a lot in her life, and wants now to deepen her herberth. We talked about the Psalms and prayed together. I returned later with a Bible for her.
[2023-12-28 16:36] LABS: Glucose - Point of Care 80 mg/dl (70-99)
[2023-12-28 19:56] LABS: Glucose - Point of Care 132 mg/dl (70-99)
[2023-12-28] MEDS: SENOKOT 17.2 MG PO (21:50)
[2023-12-28] MEDS: SEROQUEL 50 MG PO (21:50)
[2023-12-28] MEDS: AMBIEN 10 MG PO (21:50)
[2023-12-28] MEDS: ATIVAN 0.5 MG PO (21:54)
[2023-12-28 23:28] VITALS: BP 134/67
[2023-12-29] MEDS: SYNTHROID 200 MCG PO (03:58)
[2023-12-29] MEDS: ROXICODONE 5 MG PO (03:58)
[2023-12-29 07:35] LABS: Glucose - Point of Care 103 mg/dl (70-99)
[2023-12-29 07:52] VITALS: BP 126/77
[2023-12-29] MEDS: LANTUS 0.12 UNITS SC (08:15)
[2023-12-29] MEDS: MIRALAX 17 GRAMS PO (08:17)
[2023-12-29] MEDS: PROTONIX IV 40 MG IV (08:24)
[2023-12-29] MEDS: NSS (PRESERVATIVE FREE) 10 ML IV (08:24)
[2023-12-29] MEDS: NOVOLOG FLEXPEN-MODERATE RESISTANCE SC ×3 (08:35→16:23)
[2023-12-29 08:55] LABS: Hematocrit 39.5 % (37.0-47.0); Hemoglobin 13.3 g/dL (12.0-16.0); Mean Corp Hgb Conc. 33.7 g/dL (33.0-37.0); Mean Corpuscular Hgb 32.4 pg (27.0-31.0); Mean Corpuscular Volume 96.3 fL (81.0-99.0); Mean Platelet Volume 10.8 fL (7.4-10.4); Platelet Count 223 10^3/uL (130-400); Red Cell Dist. Width 13.6 % (11.5-14.5); White Blood Cell Count 5.9 10^3/uL (4.8-10.8)
[2023-12-29 08:59] LABS: Blood Urea Nitrogen 8 mg/dl (7-17); Calcium 9.4 mg/dl (8.4-10.2); Carbon Dioxide 29 mmol/L (22-30); Chloride 106 mmol/L (98-107); Estimated Creatinine Clearance 77 ml/min; Glucose 85 mg/dl (70-99); Potassium 3.8 mmol/L (3.5-5.1); Sodium 139 mmol/L (135-145); eGFR > 60.00
[2023-12-29 11:35] LABS: Glucose - Point of Care 102 mg/dl (70-99)
--- NOTE | 2023-12-29 12:13 | CM ---
Addendum entered by Sandra Timmons 12/29/23 16:32:
Plan: Discharge to home today; friend will provide transport
Original Note:
Met with patient at bedside to discuss discharge plan
Explained to patient that BRANDON notified [facility] yesterday afternoon via Fax; and that clinical information was sent as requested this morning
Verified with patient that she will be discharged to home with resumption of home health services from [facility]; and private caregivers
Patient reported that a friend will provide transport home
--- NOTE | 2023-12-29 14:09 | W.PN.HOSP.TC ---
Addendum entered and electronically signed by Charlie Knox MD 12/29/23 14:47:
I asked the patient wants to go to rehab. She stated No, as she has physical therapy and Occupational Therapy and caregivers at home.
Original Note:
Today's Communication/Plan
-
Advance diet to Diabetic diet,.
Discharge already in per .
Assessment / Plan
Assessment / Plan
CVS: S1-S2 normal
Chest: CTA B/L
Abdomen: Soft, NT ,enterocut fistula- No active drainage that I noted, Bowel sounds present
Extremities: mild edema,warm
AUCTION CLERK: Non focal exam
CT A/P w/IV+PO: No acute pathology of the abdomen or pelvis identified. Large amount fecal to throughout the colon. Progressed. Small hiatal hernia. Prior cholecystectomy.
Abdominal pain, nausea, vomiting, with feculent emesis:
-CT A/P unremarkable, LFTs/lipase normal
-Hb stable
-was on PPI gtt, now on PPI BID
-advanced to Solids
-treat constipation with Miralax (also received a dose of Mg-citrate)
-s/p enema 12/26/23
-Had BMS
Other problems:
H/O Syncope for past one year- Had extensive cardiac work up as OP
DM2: Basaglar based on accuchecks. SSI/accuchecks
Morbid obesity due to excess calories: Encouraged weight loss. Affects all aspects of care.
Hypothyroidism: Cont Levoxyl
Depression: cont Seroquel
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
DNR
DVT Prophylaxis- Lovenox
Not orthostatic per last vitals.
Advised pt to get custom compression stockings for the lower extremity. Information given where to contact.
Patient states that 'no matter what I am leaving today'.
She has caregivers at home and also palliative care following her as outpatient.
When I asked patient if anything needs to be addressed she only wanted to be on a regular diet and not a low residue diet and a referral for nephrology. We discussed that her renal function is stable therefore I this point she does not need to see
a director of science, her primary will refer if and when needed.
She was thanking me for her care also wanted me to apologize to .
Anticipated Discharge: Within 24 hours
Subjective/Interval History
-
Date of Service: December 29, 2023
Objective Data
-
Labs:
Laboratory Results
12/29/23
07:34
WBC 5.9
Hgb 13.3
Hct 39.5
Plt Count 223
Sodium 139
Potassium 3.8
Chloride 106
Carbon Dioxide 29
BUN 8
Creatinine 0.9
Glucose 85
Calcium 9.4
Vital Signs:
Vital Signs
Temp Pulse Resp BP Pulse Ox
97.8 F 79 18 126/77 98
12/29/23 07:52 12/29/23 07:52 12/29/23 07:52 12/29/23 07:52 12/29/23 07:52
I&O
12/28/23 12/29/23 12/30/23
06:59 06:59 06:59
Intake Total 1080 / 1080 240 / 240
Balance 1080 / 1080 240 / 240
[2023-12-29 15:10] VITALS: BP 161/84
[2023-12-29 16:22] LABS: Glucose - Point of Care 86 mg/dl (70-99)
== END 2023-12-29 17:55 | disposition home or self-care (01) | DRG 378 ==
LOC: 4 WEST ACU 12:50
PROVIDERS: Student in an Organized Health Care Education/Training Program; ADMITTING PHYSICIAN Internal Medicine; ATTENDING PHYSICIAN Hospitalist; CONSULT PHYSICIAN Internal Medicine Gastroenterology; EMERGENCY PHYSICIAN Emergency Medicine; FAMILY PHYSICIAN Family Medicine
DX: K92.0 Hematemesis (principal); K63.2 Fistula of intestine; Z68.41 Body mass index [BMI] 40.0-44.9, adult; K59.00 Constipation, unspecified; E11.9 Type 2 diabetes mellitus without complications; E66.01 Morbid (severe) obesity due to excess calories; E03.9 Hypothyroidism, unspecified; F32.A Depression, unspecified; I10 Essential (primary) hypertension; K44.9 Diaphragmatic hernia without obstruction or gangrene; G93.2 Benign intracranial hypertension; R10.9 Unspecified abdominal pain; Z66 Do not resuscitate
CPT/HCPCS: 74022; 74177; 80048; 80053; 82962; 83036; 83690; 84484; 85014; 85018; 85027; 86850; 86900; 86901; 93005; 97163; Q9967

== ENCOUNTER → 2024-01-23 11:05 | Outpatient (REF) | payer MEDICARE, OTHER, SELFPAY | LOC: EEG 11:05 | PROVIDERS: ATTENDING PHYSICIAN Internal Medicine; OTHER PHYSICIAN Family Medicine | DX: R55 Syncope and collapse (principal); K14.8 Other diseases of tongue | CPT/HCPCS: 95816 ==

== ENCOUNTER → 2024-01-28 11:43 | Outpatient (REF) | payer MEDICARE, OTHER, SELFPAY ==
[2024-01-28 12:48] LABS: % Eosinophils 5.2 % (0-6); % Immature Granulocytes 0.3 % (0-0.5); % Lymphocytes 33.4 % (20.5-51.1); % Monocytes 4.8 % (1.7-9.3); % Neutrophils 55.3 % (42.2-75.2); Absolute Basophils 0.1 10^3/uL (0-0.2); Absolute Eosinophils 0.4 10^3/uL (0-0.7); Absolute Lymphocytes 2.4 10^3/uL (1.2-3.4); Absolute Monocytes 0.4 10^3/uL (0.1-0.6); Hematocrit 45.3 % (37.0-47.0); Hemoglobin 14.9 g/dL (12.0-16.0); Mean Corp Hgb Conc. 32.9 g/dL (33.0-37.0); Mean Corpuscular Hgb 30.9 pg (27.0-31.0); Mean Platelet Volume 10.8 fL (7.4-10.4); Nucleated Red Blood Cells % 0 %; Platelet Count 268 10^3/uL (130-400); Red Blood Cell Count 4.82 10^6/uL (4.20-5.40); Red Cell Dist. Width 13.1 % (11.5-14.5); White Blood Cell Count 7.2 10^3/uL (4.8-10.8)
[2024-01-28 13:33] LABS: ALT (SGPT) 19 U/L (0-35); AST (SGOT) 21 U/L (14-36); Albumin 4.3 g/dl (3.5-5.0); Alkaline Phosphatase 136 U/L (38-126); Blood Urea Nitrogen 21 mg/dl (7-17); Carbon Dioxide 32 mmol/L (22-30); Chloride 98 mmol/L (98-107); Glucose 160 mg/dl (70-99); HDL Cholesterol 66 mg/dl; LDL Cholesterol, Calculated 81 mg/dl; Potassium 4.4 mmol/L (3.5-5.1); Sodium 143 mmol/L (135-145); Total Bilirubin 0.7 mg/dl (0.2-1.3); Total Cholesterol 171 mg/dl (50-199); Total Protein 7.6 g/dl (6.3-8.2); Triglyceride 123 mg/dl (10-149); Very Low Density Lipoprotein 24 mg/dl (0-30); eGFR > 60.00
[2024-01-28 14:02] LABS: Glycohemoglobin (HgbA1c) 7.8 % (4.0-5.6)
[2024-01-28 14:03] LABS: TSH < 0.02 uIU/ml (0.47-4.68)
== END ==
LOC: REG 11:43
PROVIDERS: ATTENDING PHYSICIAN Family Medicine; REFERRING PHYSICIAN Surgery
DX: Z00.00 Encounter for general adult medical examination without abnormal findings (principal); E11.21 Type 2 diabetes mellitus with diabetic nephropathy; N18.2 Chronic kidney disease, stage 2 (mild); E66.9 Obesity, unspecified; Z79.4 Long term (current) use of insulin; E78.5 Hyperlipidemia, unspecified
CPT/HCPCS: 36415; 80053; 80061; 83036; 84443; 85025

== ENCOUNTER → 2024-02-11 16:26 | Outpatient (REF) | payer MEDICARE, OTHER, SELFPAY | LOC: PAVMRI 16:26 | PROVIDERS: ATTENDING PHYSICIAN Family Medicine | DX: R51.9 Headache, unspecified (principal); D35.2 Benign neoplasm of pituitary gland; M54.2 Cervicalgia | CPT/HCPCS: 70551; 72141 ==

== ENCOUNTER 2024-03-06 06:07 | Inpatient (IN) | payer MEDICARE, OTHER, SELFPAY ==
[2024-02-21 12:55] VITALS: BMI 43.0
[2024-02-21 14:36] LABS: Hematocrit 45.8 % (37.0-47.0); Hemoglobin 14.9 g/dL (12.0-16.0); Mean Corp Hgb Conc. 32.5 g/dL (33.0-37.0); Mean Corpuscular Hgb 30.7 pg (27.0-31.0); Mean Corpuscular Volume 94.2 fL (81.0-99.0); Mean Platelet Volume 11.1 fL (7.4-10.4); Platelet Count 274 10^3/uL (130-400); Red Blood Cell Count 4.86 10^6/uL (4.20-5.40); Red Cell Dist. Width 13.3 % (11.5-14.5); White Blood Cell Count 9.4 10^3/uL (4.8-10.8)
[2024-02-21 15:03] LABS: ALT (SGPT) 21 U/L (0-35); AST (SGOT) 20 U/L (14-36); Albumin 4.1 g/dl (3.5-5.0); Alkaline Phosphatase 122 U/L (38-126); Blood Urea Nitrogen 22 mg/dl (7-17); Calcium 9.8 mg/dl (8.4-10.2); Carbon Dioxide 30 mmol/L (22-30); Chloride 100 mmol/L (98-107); Estimated Creatinine Clearance 76 ml/min; Glucose 182 mg/dl (70-99); Potassium 5.1 mmol/L (3.5-5.1); Sodium 143 mmol/L (135-145); Total Bilirubin 0.5 mg/dl (0.2-1.3); Total Protein 7.4 g/dl (6.3-8.2); eGFR > 60.00
--- NOTE | 2024-02-28 13:22 | VNURNOTE ---
Received info from PAT that patient was inquiring about [facility] after surgery. She has had [facility] services in the past. Spoke with patient. Explained our services. Patient stated she is expecting to stay in the hospital about a week post-op. [facility]
liaison informed patient that she will be seen by a CM during hospitalization and DC plan will be determined. [facility] is available and happy to admit to services if appropriate per DC plan/CM assessment. Referral in [facility].
Plan: CM to determine DC needs post-op, [facility] available if appropriate
[2024-03-06] VITALS (30 sets, daily range): BP systolic 104–160; BP diastolic 59–87; BMI 43.0
[2024-03-06] MEDS: TYLENOL 1000 MG PO (06:37)
[2024-03-06] MEDS: HEPARIN 5000 UNITS SC (06:38)
--- NOTE | 2024-03-06 07:01 | HP.FOC2 ---
Focused History & Physical
Chief Complaint
HPI:
Chief Complaint: Low output enterocutaneous fistula
HPI / Indication for Planned Procedure: Patient is a 63-year-old female well-known to myself who has a complex past abdominal surgical history including LISSA/BSO remotely for uterine cancer. Subsequent [place] vesicle/vaginal fistula undergoing
sigmoidectomy. Anastomotic leak requiring diverting ostomy and washout. Multiple abdominal hernia repairs and now presents with chronic low output enterocutaneous fistula. She wishes to go operative intervention to manage her fistula as it has
been multiple years and the fistula has not closed despite medical/conservative management.
Relevant Past Medical History: Other (Diabetes mellitus, hypothyroidism, hypertension, ROLAN, pseudotumor cerebri, PTSD, depression, nephrolithiasis, history of MRSA, history of endometrial cancer, bipolar)
Relevant Social History: Negative
Relevant Family History: Negative
Relevant Past Surgical History: Positive for (Tonsils, appendectomy, cholecystectomy, right patellar fracture, ORIF right shoulder, lumbar peritoneal shunt, LISSA/BSO, colostomy, sigmoidectomy, colostomy reversal, multiple hernia repairs)
Review of Systems
Review of Pertinent Systems: All Systems Negative
Medication
See Medication form for detailed medications: Yes
Medication List (including Herbals & OTC):
lorazepam 0.5 mg tablet 0.5 mg PO DAILY 11/30/11
quetiapine 50 mg tablet (Seroquel) 50 mg PO HS 11/01/21
insulin aspart (niacinamide)(U-100) 100 unit/mL(3 mL) subcutaneous pen 0 sliding scale dose SC AC 09/27/22
dulaglutide 4.5 mg/0.5 mL subcutaneous pen injector (Trulicity) 4.5 mg SC DENIS 12/25/23
zolpidem 12.5 mg tablet,extended release,multiphase 12.5 mg PO HS 12/25/23
insulin glargine 100 unit/mL (3 mL) subcutaneous pen (Basaglar KwikPen U-100 Insulin) 12 unit (0.12 mL) SC BID #0 mL 12/28/23
atorvastatin 10 mg tablet 10 mg PO DAILY 02/28/24
furosemide 40 mg tablet (Lasix) 40 mg PO DAILY 02/28/24
levothyroxine 88 mcg tablet 176 mcg PO DAILY 02/28/24
lorazepam 0.5 mg tablet 0.5 mg PO HS 02/28/24
midodrine 5 mg tablet 5 mg PO DAILY 02/28/24
polyethylene glycol 3350 17 gram oral powder packet (HealthyLax) 17 g PO BID PRN constipation 02/28/24
sennosides 8.6 mg tablet (Senna Laxative) 17.2 mg PO HS PRN constipation 02/28/24
sodium sul 1.479 gram-potas ch 0.188 gram-magnes sul 0.225 gram tablet (Sutab) 0 tab PO DIRECTED pre op 02/28/24
Medications Reviewed: Yes
Allergies and Reactions
Patient has Allergies: Yes
Noted Allergies and Reactions:
Allergy/AdvReac Type Severity Reaction Status Date / Time
empagliflozin Allergy Unknown Unknown Verified 03/06/24 06:18
[From Jardiance]
canagliflozin [From Invokana] Allergy Hives Verified 03/06/24 06:18
metformin Allergy Unknown Verified 03/06/24 06:18
milk Allergy Unknown Verified 03/06/24 06:18
Pertinent Physical Exam
All Other Systems: Negative
Head/Neck: Normal
Lungs: Normal
Heart: Normal
Abdomen: Other (Numerous surgical scars. Left-sided enterocutaneous fistula tract)
Extremities: Normal
Neurological: Normal
Diagnosis / Assessment
63-year-old female presenting for exploratory laparotomy, takedown of enterocutaneous fistula
Plan / Procedure
Ex lap, takedown enterocutaneous fistula
Anesthesia/Sedation to be done by Anesthesia Provider: Yes
--- NOTE | 2024-03-06 07:06 | W.SUR.PREOP ---
Pre-Operative Surgical Note
-
I have examined this patient prior to the performance of the scheduled procedure.
The patient's condition is unchanged from the time of the current History and
Physical and the patient is able to undergo the scheduled procedure.
[2024-03-06] MEDS: NOVOLOG vial 3 UNITS SC (07:13)
[2024-03-06 09:06] LABS: Glucose - Point of Care 204 mg/dl (70-99)
[2024-03-06 10:31] LABS: Glucose - Point of Care 263 mg/dl (70-99)
[2024-03-06] MEDS: DILAUDID 0.5 MG IV ×4 (11:55→18:40)
[2024-03-06 11:56] LABS: Glucose - Point of Care 160 mg/dl (70-99)
--- NOTE | 2024-03-06 12:02 | W.IMMPOSTOP ---
Addendum entered and electronically signed by Dillan Severino MD 03/06/24 14:39:
#[id number]
Original Note:
Surgical Immed Post Op Note
-
Primary Surgeon: Mere
Assisting Surgeon: Sedrick PADILLA
Pre-op Diagnosis: EC fistula
Post-op Diagnosis: EC fistula
Procedure Performed: Ex Lap, extensive CHANTAL, takedown EC Fistula/SBR
Anesthesia Type: GETA + 0.25% Marcaine
Specimen / Cultures: SB fistula / none
Estimated Blood Loss: 36 mL
Complications: None immediate
Operative Findings: Frozen abdomen/extensive adhesions but rather filmy. Isolated small bowel fistula from single small bowel loop. Adhesiolysis encompassing 2.5 hours of operative time. Single small bowel resection to take down EC fistula.
Gzdy-ad-mljk anastomosis, Ben technique, 80 purple HOWIE stapler x 2. Few isolated small areas of residual mesh removed from midline abdominal wall incision. Fistula tract excised. No enterotomies. Lumbar peritoneal shunt visualized but not
disturbed.
Plan: NG tube decompression and IV fluid hydration awaiting signs of GI recovery postoperatively given extensiveness of adhesiolysis and concomitant bowel resection
Antibiotics for 72 hours postop due to contaminated procedure -takedown of active EC fistula
Monitor in IMU for postoperative care
WORLDWIDE CHIEF CREATIVE OFFICER for pain control
okay to give seroquel tomorrow with NGT in place; otherwise IV meds initially post op
--- NOTE | 2024-03-06 14:30 | PTCARENOTE ---
Received patient from PACU. Received report from RN over the phone. Upon arrival pt in normal sinus on tele. Pt on 4L NC O2 sat 98%. Pt AAOx3, drowsy from anesthesia. Medial abdominal incision dressing clean, dry, and intact. Pt complains of 10/10
pain. Abdomen firm and tender to palpation. Started FABRICATOR INDUSTRIAL FURNACE pump as prescribed. Given Ofirmev. Given Dilaudid for breakthrough pain. Pt states she is feeling better with less pain. Pt had periods of apnea, O2 dropped to 90%. Arousable to verbal. CHG
bath given. Pt oriented to the unit. Friend at bedside. Pt is appearing to be resting comfortably in bed with call mar within reach.
[2024-03-06] MEDS: LR 1000 IV ×2 (14:31→22:23)
[2024-03-06] MEDS: OFIRMEV 100 IV ×2 (15:06→20:38)
[2024-03-06] MEDS: LOVENOX 40 MG SC (17:06)
[2024-03-06 17:07] LABS: Glucose - Point of Care 244 mg/dl (70-99)
[2024-03-06] MEDS: NOVOLOG FLEXPEN-LOW RESISTANCE 2 UNITS SC (17:48)
[2024-03-06] MEDS: SEROQUEL 50 MG PO (22:22)
[2024-03-06] MEDS: ATIVAN 0.5 MG IV (22:28)
[2024-03-07] VITALS (12 sets, daily range): BP systolic 113–139; BP diastolic 59–80
[2024-03-07 00:07] LABS: Glucose - Point of Care 284 mg/dl (70-99)
[2024-03-07] MEDS: NOVOLOG FLEXPEN-LOW RESISTANCE 3 UNITS SC (00:27)
[2024-03-07] MEDS: OFIRMEV 100 IV ×2 (02:38→10:48)
--- NOTE | 2024-03-07 04:51 | PTCARENOTE ---
Rec'd pt from previous RN. NGT set to LIS, draining green drainage. WIND TURBINE TECHNICIAN in place, see worklist. Pt RR under 10 at 04:00, pt woken up with sustained improvement to 12, no additional action necessary. Pt reports pain level of 7, reports this as
tolerable. O2 weaned to 1L, pt tolerated with SaO2 97%. Will continue to wean as able. Abdominal dressings remain CDI. Pt rings appropriately. Call mar within reach.
[2024-03-07 05:34] LABS: Glucose - Point of Care 238 mg/dl (70-99)
[2024-03-07] MEDS: LR 1000 IV ×2 (05:48→15:01)
[2024-03-07 05:51] LABS: Hematocrit 37.1 % (37.0-47.0); Mean Corpuscular Hgb 31.2 pg (27.0-31.0); Platelet Count 237 10^3/uL (130-400); Red Blood Cell Count 4.17 10^6/uL (4.20-5.40); Red Cell Dist. Width 13.9 % (11.5-14.5); White Blood Cell Count 13.1 10^3/uL (4.8-10.8)
[2024-03-07 06:01] LABS: Blood Urea Nitrogen 17 mg/dl (7-17); Calcium 9.1 mg/dl (8.4-10.2); Carbon Dioxide 27 mmol/L (22-30); Chloride 102 mmol/L (98-107); Estimated Creatinine Clearance 98 ml/min; Glucose 251 mg/dl (70-99); Potassium 4.8 mmol/L (3.5-5.1); Sodium 138 mmol/L (135-145); eGFR > 60.00
[2024-03-07] MEDS: NOVOLOG FLEXPEN-LOW RESISTANCE 2 UNITS SC (06:06)
[2024-03-07] MEDS: CHLORASEPTIC/SORE THROAT SPRAY 1 SPRAY PO (06:07)
[2024-03-07] MEDS: DILAUDID 0.5 MG IV ×4 (07:31→21:56)
[2024-03-07] MEDS: INVANZ 60 MG IV (09:22)
[2024-03-07] MEDS: PROTONIX IV 40 MG IV (09:23)
[2024-03-07 12:08] LABS: Glucose - Point of Care 214 mg/dl (70-99)
--- NOTE | 2024-03-07 12:22 | W.PN.GS2 ---
Addendum entered and electronically signed by Eduard Conde MD 03/07/24 16:06:
I saw and examined the patient.
The Clinical Editor's note was reviewed and I agree with the note.
Comment: Pain improved. Denies n/v with NGT to suction. Abd exam approp. Plan to cont NPO/IVF/NGT await ROBF. Cont CAMERA TECHNICIAN for pain control. Ambulate.
Original Note:
Today's Communication / Plan
-
NPO/IVF/NGT
CAMERA TECHNICIAN
OOB
Assessment / Plan
-
63 yo female diabetic femal presenting for management of enterocutaneous fistula now POD #1 Ex Lap, extensive CHANTAL, takedown EC Fistula/SBR
AFVSS
NGT with bilious outputs; awaiting ROBF
Pain well managed with CAMERA TECHNICIAN
--Continue NPO with ice chips for comfort with NGT to suction
--Continue CAMERA TECHNICIAN/Ofirmev
--Continue IVF with LR
--Trend labs
--Follow blood sugars on sliding scale insulin
--C/W empiric IV Invanz through POD #3
--OOB/ambulate as able
--Wean O2/IS while awake
--SCDs and lovenox for VTE ppx
Subjective Data
-
Date of Service: March 07, 2024
Patient seen and examined at bedside. Denies n/v. Not yet passing flatus. Pain better today. Discomfort from NGT.
Objective Data
-
Intake and Output
03/06/24 03/07/24 03/08/24
06:59 06:59 06:59
Intake Total 230 / 230
Output Total 1330 / 1330
Balance -1100 / -1100
Intake:
IV fluids (Total) 200 / 200
Normosol 200 / 200
Amount instilled into GI Tube ( 30 / 30
Total)
[place] Sump
Output:
Gastrointestinal tube output (
Total)
[place] Sump
Urine, [place] 1300 / 1300
Vital Signs
Temp Pulse Resp BP Pulse Ox
98.6 F 71 24 135/65 96
03/07/24 07:22 03/07/24 06:00 03/07/24 08:00 03/07/24 06:00 03/07/24 09:33
Lab Results
03/07/24 05:20
03/07/24 05:20
Calcium 9.1 mg/dl (8.4-10.2) 03/07/24 05:20
Total Bilirubin 0.5 mg/dl (0.2-1.3) 02/21/24 12:35
AST 20 U/L (14-36) 02/21/24 12:35
ALT 21 U/L (0-35) 02/21/24 12:35
Alkaline Phosphatase 122 U/L (38-126) 02/21/24 12:35
Total Protein 7.4 g/dl (6.3-8.2) 02/21/24 12:35
Albumin 4.1 g/dl (3.5-5.0) 02/21/24 12:35
Physical Exam
-
NAD
ABD soft, minimal incisional tenderness, NT
Left lateral incision with staple/aydin intact, dressing changed d/t saturation, midline incision with intact dressing
RLQ with erythematous area of scarring
NGT with bilious outputs, approx 400ml in cannister
[2024-03-07] MEDS: NOVOLOG FLEXPEN-MODERATE RESISTANCE 3 UNITS SC ×2 (12:42→18:23)
[2024-03-07] MEDS: NOVOLOG FLEXPEN-LOW RESISTANCE SC (13:20)
--- NOTE | 2024-03-07 14:54 | PTCARENOTE ---
Pt presents as assessed. Aox3, occasionally drowsy. NSR on tele monitor. Sating high 80's to low 90's on 1L NC, increased to 2L and sats recovered to mid 90's. Dilaudid INORGANIC CHEMISTRY PROFESSOR pump in place with rate of 0.2mg/hr, 10 minute lockout, max dose of
1.2mg/hr- see intervention. Medicated with additional dose of PRN Dilaudid for breakthrough pain. Resting comfortably at this time. NGT to LIWS with green output. Pt able to make needs known, call mar within reach.
[2024-03-07 18:22] LABS: Glucose - Point of Care 200 mg/dl (70-99)
[2024-03-07] MEDS: LOVENOX 40 MG SC (18:24)
--- NOTE | 2024-03-07 18:24 | PTCARENOTE ---
Per pt, she is not to have any injections in her abdomen d/t medical history. Lovenox administered in SQ tissue of L thigh, see MAR.
[2024-03-07] MEDS: SEROQUEL 50 MG PO (21:55)
[2024-03-07] MEDS: ATIVAN 0.5 MG IV (22:18)
[2024-03-07] MEDS: NSS (PRESERVATIVE FREE) 0.25 ML IV (22:19)
[2024-03-08] VITALS (16 sets, daily range): BP systolic 101–128; BP diastolic 50–73; PULSE 89; O2SAT 95; BMI 45.4
[2024-03-08 00:40] LABS: Glucose - Point of Care 199 mg/dl (70-99)
[2024-03-08] MEDS: NOVOLOG FLEXPEN-MODERATE RESISTANCE 1 UNITS SC ×5 (01:02→23:32)
[2024-03-08] MEDS: LR 1000 IV ×3 (01:02→19:12)
--- NOTE | 2024-03-08 04:15 | PTCARENOTE ---
Pt continues on GRADING MACHINE FEEDER only needing one break through pain medication through out night. Per Ian RN Pt refused to get up due to pain in ABD. Pt now is looking forward to getting up on day shift, nerves but ready. NGT to LIWS with dark green output. ABD
dressings in tact shading outlined. Pt able to make needs known, call mar within reach. Assessment care and vitals as charted.
[2024-03-08] MEDS: OFIRMEV 100 IV (05:49)
[2024-03-08 05:57] LABS: Hemoglobin 11.7 g/dL (12.0-16.0); Mean Corp Hgb Conc. 32.5 g/dL (33.0-37.0); Mean Corpuscular Hgb 30.7 pg (27.0-31.0); Mean Corpuscular Volume 94.5 fL (81.0-99.0); Mean Platelet Volume 10.7 fL (7.4-10.4); Platelet Count 196 10^3/uL (130-400); Red Blood Cell Count 3.81 10^6/uL (4.20-5.40); Red Cell Dist. Width 14.1 % (11.5-14.5); White Blood Cell Count 11.8 10^3/uL (4.8-10.8)
[2024-03-08 06:21] LABS: Glucose - Point of Care 182 mg/dl (70-99)
[2024-03-08 06:54] LABS: Blood Urea Nitrogen 12 mg/dl (7-17); Calcium 8.8 mg/dl (8.4-10.2); Carbon Dioxide 29 mmol/L (22-30); Chloride 101 mmol/L (98-107); Estimated Creatinine Clearance 101 ml/min; Glucose 201 mg/dl (70-99); Potassium 4.2 mmol/L (3.5-5.1); Sodium 137 mmol/L (135-145); eGFR > 60.00
[2024-03-08] MEDS: INVANZ 60 MG IV (08:21)
[2024-03-08] MEDS: PROTONIX IV 40 MG IV (09:24)
[2024-03-08] MEDS: DILAUDID 0.5 MG IV ×3 (10:52→17:27)
[2024-03-08 11:54] LABS: Glucose - Point of Care 187 mg/dl (70-99)
--- NOTE | 2024-03-08 11:56 | W.PN.GS2 ---
Addendum entered and electronically signed by Eduard Conde MD 03/08/24 12:31:
I saw and examined the patient.
The Systems Lead's note was reviewed and I agree with the note.
Comment: Stable. No specific complaints. Pain controlled. Denies flatus/BM. NGT remains bilious. Abd exam approp, limited by obesity. Plan to cont NPO/IVF/NGT, await ROBF
Original Note:
Today's Communication / Plan
-
NPO/NGT/IVF
Assessment / Plan
-
63 yo female diabetic femal presenting for management of enterocutaneous fistula now POD #2 Ex Lap, extensive CHANTAL, takedown EC Fistula/SBR
AFVSS
NGT with bilious outputs; awaiting ROBF
Pain well managed with SENIOR GRADUATE ADVISOR
--Continue NPO with ice chips for comfort with NGT to suction
--Continue SENIOR GRADUATE ADVISOR/Ofirmev
--Continue IVF with LR
--Trend labs
--Follow blood sugars on sliding scale insulin (moderate res.)
--C/W empiric IV Invanz through POD #3
--OOB/ambulate as able. PT Consult placed
--Wean O2/IS while awake
--SCDs and lovenox for VTE ppx
Subjective Data
-
Date of Service: March 08, 2024
Patient seen and examined at bedside with Dr. Conde. Denies nausea. Not yet passing flatus. Pain manageable with SENIOR GRADUATE ADVISOR.
Objective Data
-
Intake and Output
03/07/24 03/08/24 03/09/24
06:59 06:59 06:59
Intake Total 230 / 230 240 / 240 1400 / 1400
Output Total 1330 / 1330 1050 / 1050 350 / 350
Balance -1100 / -1100 -810 / -810 1050 / 1050
Intake:
Oral fluids 240 / 240 60 / 60
IV fluids (Total) 200 / 200 1200 / 1200
Normosol 200 / 200
IV piggybacks 100 / 100
Amount instilled into GI Tube ( 40 / 40
Total)
[place] Sump 30 40 / 40
Output:
Gastrointestinal tube output ( 550 / 550 50 / 50
Total)
[place] Sump 550 / 550 50 / 50
Urine, [place] 1300 / 1300 500 / 500 300 / 300
Vital Signs
Temp Pulse Resp BP Pulse Ox
99.4 F 83 14 101/55 95
03/08/24 08:05 03/08/24 08:00 03/08/24 08:00 03/08/24 08:00 03/08/24 08:00
Lab Results
03/08/24 05:42
03/08/24 05:42
Calcium 8.8 mg/dl (8.4-10.2) 03/08/24 05:42
Total Bilirubin 0.5 mg/dl (0.2-1.3) 02/21/24 12:35
AST 20 U/L (14-36) 02/21/24 12:35
ALT 21 U/L (0-35) 02/21/24 12:35
Alkaline Phosphatase 122 U/L (38-126) 02/21/24 12:35
Total Protein 7.4 g/dl (6.3-8.2) 02/21/24 12:35
Albumin 4.1 g/dl (3.5-5.0) 02/21/24 12:35
Physical Exam
-
NAD
ABD soft, minimal incisional tenderness, ND
Left lateral incision with staple/aydin intact, dressing intact, midline incision with intact dressing
RLQ with erythematous area of scarring
NGT with bilious outputs
--- NOTE | 2024-03-08 16:19 | CM ---
Patient who is s/p Ex Lap, CHANTAL, takedown of enterocutaneous fistula/SBR. O2 2L. NPO/IVF. NGT to LIWS. Receiving IV Abx, IV Dilaudid DIRECTOR ZONE. PT recommends skilled rehab.
Met with patient who resides alone in a first floor apartment.
The patient was independent in ADLs & ambulation using her SPC.
DME - SPC, RW, w/c
Recently had [facility] for PT
Prior [facility]
PCP - Iftikhar Sam
Pharmacy - [facility]
The patient relays clearly that she intends to go home at d/c with [facility] services, and will not consider SNF. She feels her mobility will improve while here. Her boyfriend Abelino will assist her at home. She has no children.
Referral to [facility] Liaison.
Plan home with [facility].
[2024-03-08 18:39] LABS: Glucose - Point of Care 186 mg/dl (70-99)
[2024-03-08] MEDS: LOVENOX 40 MG SC (19:13)
--- NOTE | 2024-03-08 19:16 | PTCARENOTE ---
pt assisted oob x 2 to attempt to void after catheter removal at 1250 without success. Surgical FUEL PILOT ENGINEER notified. Pt with urinary retention issues post-op previously, requiring flomax per patient. Orders to replace mercer catheter for acute retention.
inserted after one attempt without difficulty; clear ty return 200 ml. continuing to monitor
--- NOTE | 2024-03-08 20:35 | PTCARENOTE ---
Day RN called for new bag of Dilaudid for REFRIGERATION UNIT REPAIRER. Current bag still having about 11mls left. This RN called pharmacy to verify if medication should be sent back or locked on floor. Per pharmacy since timing is unknown it should be sent back. Dang
from pharmacy came to IMU to collect Dilaudid bag and green sheet.
[2024-03-08] MEDS: SEROQUEL 50 MG PO (23:11)
[2024-03-08] MEDS: ATIVAN 0.5 MG IV (23:14)
[2024-03-08] MEDS: NSS (PRESERVATIVE FREE) 0.25 ML IV (23:15)
[2024-03-08 23:42] LABS: Glucose - Point of Care 150 mg/dl (70-99)
[2024-03-09] VITALS (12 sets, daily range): BP systolic 94–129; BP diastolic 47–72; BMI 45.7
[2024-03-09] MEDS: LR 1000 IV ×3 (04:06→22:25)
[2024-03-09] MEDS: LR IV ×2 (04:37→05:05)
--- NOTE | 2024-03-09 05:24 | PTCARENOTE ---
Pt appearing to get sleep last night. Pt respiration even unlabored spo2 95% on 2L. Call mar within reach. Assessment care and vitals as charted.
[2024-03-09 05:38] LABS: Hemoglobin 11.4 g/dL (12.0-16.0); Mean Corp Hgb Conc. 32.6 g/dL (33.0-37.0); Mean Corpuscular Hgb 30.5 pg (27.0-31.0); Mean Corpuscular Volume 93.6 fL (81.0-99.0); Mean Platelet Volume 11.2 fL (7.4-10.4); Platelet Count 184 10^3/uL (130-400); Red Blood Cell Count 3.74 10^6/uL (4.20-5.40); Red Cell Dist. Width 13.6 % (11.5-14.5); White Blood Cell Count 9.8 10^3/uL (4.8-10.8)
[2024-03-09 05:49] LABS: Glucose - Point of Care 149 mg/dl (70-99)
[2024-03-09 05:50] LABS: Glucose - Point of Care 222 mg/dl (70-99)
[2024-03-09 06:07] LABS: Blood Urea Nitrogen 11 mg/dl (7-17); Calcium 8.7 mg/dl (8.4-10.2); Carbon Dioxide 28 mmol/L (22-30); Chloride 101 mmol/L (98-107); Estimated Creatinine Clearance 119 ml/min; Glucose 160 mg/dl (70-99); Sodium 138 mmol/L (135-145); eGFR > 60.00
[2024-03-09] MEDS: NOVOLOG FLEXPEN-MODERATE RESISTANCE SC ×3 (07:07→23:45)
[2024-03-09 07:36] LABS: Glucose - Point of Care 154 mg/dl (70-99)
[2024-03-09] MEDS: PROTONIX IV 40 MG IV (08:20)
[2024-03-09] MEDS: DILAUDID 0.5 MG IV ×2 (09:23→17:21)
--- NOTE | 2024-03-09 09:31 | PTCARENOTE ---
Patient reports 8/10 pain to abdomen. Pt during lockout of ROOF SERVICE TECHNICIAN. Pt medicated with PRN Dilaudid, see MAR.
--- NOTE | 2024-03-09 11:23 | W.PN.GS2 ---
Addendum entered and electronically signed by EUSEBIA Foy 03/09/24 15:52:
hypoxia noted post operatively, following for resolution. wean o2 as able
Addendum entered and electronically signed by EUSEBIA Foy 03/09/24 15:47:
note: patient with morbid obesity secondary to excess calories, continues with oxygen requirement which is possibly secondary to obesity associated hypoventilation vs narcotics
Original Note:
Today's Communication / Plan
-
Pain management
NPO/NGT/IVF
Assessment / Plan
-
63 yo female diabetic femal presenting for management of enterocutaneous fistula now POD #3 Ex Lap, extensive CHANTAL, takedown EC Fistula/SBR
AFVSS
NGT with light bilious outputs; awaiting ROBF
Pain well managed with ROTARY DRIER
Unable to void with voiding trial on 03/08, mercer placed
--Continue NPO with ice chips for comfort with NGT to suction
--Continue ROTARY DRIER/Ofirmev
--Continue IVF with LR
--Trend labs
--Follow blood sugars on sliding scale insulin (moderate res.)
--C/W empiric IV Invanz through day 3
--OOB/ambulate as able. PT following
--IS while awake
--C/W mercer, will add PO flomax
--SCDs and lovenox for VTE ppx
Subjective Data
-
Date of Service: March 09, 2024
Patient seen and examined at bedside with Dr. Childs. No passage of flatus as of yet. Notes that pain is no worse but not really better, well controlled with ROTARY DRIER. Denies n/v. Unable to void with voiding trial yesterday, notes she usually needs
flomax after surgery
Objective Data
-
Intake and Output
03/08/24 03/09/24 03/10/24
06:59 06:59 06:59
Intake Total 240 / 240 4610 / 4610 30
Output Total 1050 / 1050 1050 / 1050
Balance -810 / -810 3560 / 3560 30
Intake:
Oral fluids 240 / 240 120 / 120
IV fluids (Total) 4140 / 4140
IV piggybacks 100 / 100
Amount instilled into GI Tube ( 250 / 250 30 / 30
Total)
[place] Sump 250 / 250 30 / 30
Output:
Gastrointestinal tube output ( 550 / 550 300 / 300
Total)
[place] Sump 550 / 550 300 / 300
Urine, [place] 500 / 500 750 / 750
Vital Signs
Temp Pulse Resp BP Pulse Ox
98.5 F 75 18 124/62 94
03/09/24 07:45 03/09/24 08:00 03/09/24 08:00 03/09/24 08:00 03/09/24 09:59
Lab Results
03/09/24 04:55
03/09/24 04:55
Calcium 8.7 mg/dl (8.4-10.2) 03/09/24 04:55
Total Bilirubin 0.5 mg/dl (0.2-1.3) 02/21/24 12:35
AST 20 U/L (14-36) 02/21/24 12:35
ALT 21 U/L (0-35) 02/21/24 12:35
Alkaline Phosphatase 122 U/L (38-126) 02/21/24 12:35
Total Protein 7.4 g/dl (6.3-8.2) 02/21/24 12:35
Albumin 4.1 g/dl (3.5-5.0) 02/21/24 12:35
Physical Exam
-
NAD
ABD soft, minimal incisional tenderness, ND
Left lateral incision with dustin intact, aydin removed, dressing changed. midline incision with intact dressing, minimal strikethrough
RLQ with improving erythematous area of scarring
NGT with bilious outputs
[2024-03-09] MEDS: OFIRMEV 100 IV ×2 (11:41→17:22)
[2024-03-09] MEDS: NOVOLOG FLEXPEN-MODERATE RESISTANCE 1 UNITS SC (12:27)
[2024-03-09 12:34] LABS: Glucose - Point of Care 173 mg/dl (70-99)
--- NOTE | 2024-03-09 15:09 | PN.CDI ---
CDI
- -
CDI:
Physician Documentation Request
Admit Date: 03/06/24 06:07
Dear Doctor/CIVIL ENGINEERING SPECIALIST,
Please review the following and provide your response in the progress notes.
Clinical Indicators:
Height: 5 ft 3 in
Weight:257 lb 15 oz
BMI:45.7
If possible, please provide an associated diagnosis related to the abnormal BMI, such as:
BMI > or = to 40
Obesity:
Due to excess calories
Drug induced
Due to other cause
Severe or morbid obesity:
With alveolar hypoventilation (Obesity hypoventilation syndrome)
Without alveolar hypoventilation
- Other
Use of terms such as suspected, likely, concern for, or probable (associated with a specific diagnosis that is being evaluated, monitored, or treated as if it exists) are acceptable and can be coded in the inpatient setting, when documented at the
time of discharge.
Thank you,
Gricel Santamaria RN
CDI Specialist
[place] [facility]
Please use your independent medical judgment in providing your response.
--- NOTE | 2024-03-09 15:40 | PN.CDI ---
CDI
- -
CDI:
Physician Documentation Request
Admit Date: 03/06/24 06:07
Dear Doctor/DATA ENTRY TECHNICIAN,
Please review the following and provide your response in the progress notes.
Clinical Indicators:
Pt admitted with enterocutaneous fistula for surgery /Ex Lap, extensive CHANTAL, takedown EC Fistula/SBR done 03/06
Pt care note 03/06 @ 1430, ' Pt on 4L NC O2 sat 98%. Pt AAOx3, drowsy from anesthesia..... Pt had periods of apnea, O2 dropped to 90%....'
Patient care note 03/07 @ 0451,' Pt RR under 10 at 04:00, pt woken up with sustained improvement to 12,.... O2 weaned to 1L, pt tolerated with SaO2 97%. ....'
Pt care note 03/07@ 1454, ' ....Sating high 80's to low 90's on 1L NC, increased to 2L and sats recovered to mid 90's. '
Pt care note 03/09 @ 0524, ' Pt respiration even unlabored spo2 95% on 2L...'
See charted vital signs below
Selected Entries
03/06/24
11:45 03/06/24
12:00
Resp Rate 41
Nasal Cannula flow liters per minute 6
03/06/24
12:15 03/06/24
12:30 03/06/24
12:30
Resp Rate 32
SaO2 84
Nasal Cannula flow liters per minute 4 6
03/06/24
12:45 03/06/24
13:05 03/06/24
13:30
Resp Rate 38 32
Nasal Cannula flow liters per minute 4
03/06/24
14:30 03/06/24
16:42 03/06/24
18:15
Resp Rate 35 29
Nasal Cannula flow liters per minute 4
03/06/24
20:00 03/07/24
00:00 03/07/24
01:45
Nasal Cannula flow liters per minute 4 4 2
03/07/24
09:33 03/07/24
18:27 03/09/24
13:29
Nasal Cannula flow liters per minute 1 2 2
Clarify which of the following accurately represents the patient's respiratory status following surgery:
Acute pulmonary insufficiency (following surgery)
Hypoxia-only
Other
Additional information for Pulmonary Insufficiency:
Consider when patients require group home oxygen therapy postoperatively
Weaned off oxygen initially then requiring supplemental oxygen
No other definitive diagnosis to support the need for oxygen (COPD exac, CHF etc.)
Unable to wean from vent
When criteria for respiratory failure not present
May extend stay or require additional resources; may need home O2
Use of terms such as suspected, likely, concern for, or probable (associated with a specific diagnosis that is being evaluated, monitored, or treated as if it exists) are acceptable and can be coded in the inpatient setting, when documented at the
time of discharge.
Thank you,
Gricel Santamaria RN
CDI Specialist
[place] [facility]
Please use your independent medical judgment in providing your response.
[2024-03-09] MEDS: LOVENOX 40 MG SC (17:22)
[2024-03-09 17:33] LABS: Glucose - Point of Care 143 mg/dl (70-99)
[2024-03-09] MEDS: ATIVAN 0.5 MG IV (22:27)
[2024-03-09] MEDS: NSS (PRESERVATIVE FREE) 0.25 ML IV (22:28)
[2024-03-09] MEDS: FLOMAX 0.4 MG PO (22:28)
[2024-03-09] MEDS: SEROQUEL 50 MG PO (22:28)
[2024-03-09 23:34] LABS: Glucose - Point of Care 112 mg/dl (70-99)
[2024-03-10] VITALS (14 sets, daily range): BP systolic 106–156; BP diastolic 55–85; PULSE 72; O2SAT 94
[2024-03-10] MEDS: OFIRMEV 100 IV ×2 (00:32→06:19)
[2024-03-10] MEDS: DILAUDID PCA 30 IV (01:09)
[2024-03-10] MEDS: NOVOLOG FLEXPEN-MODERATE RESISTANCE SC ×3 (06:19→18:21)
[2024-03-10] MEDS: SYNTHROID 175 MCG PO (06:25)
[2024-03-10 06:30] LABS: Glucose - Point of Care 119 mg/dl (70-99)
--- NOTE | 2024-03-10 06:39 | PTCARENOTE ---
Patient called once for break through IV dilaudid. Upon arriving into pt room, pt found to be sleeping so medication not given.
a few hours later, Pt requested prn ativan when awake. administered per mar along with HS meds and HS cares.
This morning pt pressed ASSISTANT DIRECTOR OF SECURITY and immediately after asked for IV dilaudid prn. Pt was made aware this medication is for breakthrough pain and she needs to give the ASSISTANT DIRECTOR OF SECURITY time to work because the prn dilaudid is ordered as breakthrough medication. pt
visibly upset stating this is how they have been doing it and this is how they told me to do it.
[2024-03-10] MEDS: DILAUDID 0.5 MG IV ×3 (07:00→19:53)
[2024-03-10] MEDS: PROTONIX 40 MG PO (07:01)
--- NOTE | 2024-03-10 07:45 | W.PN.GS2 ---
Today's Communication / Plan
-
`
Assessment / Plan
-
Assessment: 63 yo female diabetic female presenting for management of chronic low output enterocutaneous fistula now POD #3 Ex Lap, extensive CHANTAL, takedown EC Fistula/SBR
AFVSS
incision looks good, overall doing well post op
NGT with light bilious outputs still about 300mL+/shift; awaiting ROBF
Unable to void with voiding trial on 03/08, Mercer replaced for retention
Plan: stop VALIDATION LEADER and start Toradol 10mg IV q6h ATC x 12 doses
PRN Dilaudid available as well
encouraged to increase time OOBTC and start ambulation/PT following
Continue NPO with ice chips for comfort with NGT to suction but okay to clamp for ambulation/mobility and meds
renewed IVF at reduced rate
Lasix 20mg IV x 1 for generalized edema
continue with Mercer catheter d/t retention and with diuresis - will remove when ambulatory
Follow blood sugars on sliding scale insulin (moderate res.)
SCDs and lovenox for VTE ppx
PPI for GIp with NGT in place
Subjective Data
-
Date of Service: March 10, 2024
pt seen and examined
reports post op pain in incision areas, burning
no nausea
no flatus or BM
Objective Data
-
Intake and Output
03/09/24 03/10/24 03/11/24
06:59 06:59 06:59
Intake Total 4610 / 4610 1694.6 / 1694.6
Output Total 1050 / 1050 2450 / 2450
Balance 3560 / 3560 -755.4 / -755.4
Intake:
Oral fluids 120 / 120
IV fluids (Total) 4140 / 4140 1200 / 1200
IV piggybacks 100 / 100 404.6 / 404.6
Amount instilled into GI Tube ( 250 / 250 90 / 90
Total)
[place] Sump 250 / 250 90 / 90
Output:
Gastrointestinal tube output ( 300 / 300 625 / 625
Total)
[place] Sump 300 / 300 625 / 625
Urine, Mercer 750 / 750 1825 / 1825
Vital Signs
Temp Pulse Resp BP Pulse Ox
97.8 F 68 13 106/59 94
03/10/24 04:49 03/10/24 06:00 03/10/24 06:00 03/10/24 06:00 03/10/24 06:00
Lab Results
03/09/24 04:55
03/09/24 04:55
Calcium 8.7 mg/dl (8.4-10.2) 03/09/24 04:55
Total Bilirubin 0.5 mg/dl (0.2-1.3) 02/21/24 12:35
AST 20 U/L (14-36) 02/21/24 12:35
ALT 21 U/L (0-35) 02/21/24 12:35
Alkaline Phosphatase 122 U/L (38-126) 02/21/24 12:35
Total Protein 7.4 g/dl (6.3-8.2) 02/21/24 12:35
Albumin 4.1 g/dl (3.5-5.0) 02/21/24 12:35
Physical Exam
-
NAD AAOx3 lying comfortably in hospital bed
ABD: soft, ND, mild incisional tenderness
incision with dustin - no erythema, no drainage, no open wounds
old fistula site clean
NGT with bilious outputs
mercer - clear yellow urine
[2024-03-10] MEDS: LR 1000 IV ×2 (08:46→20:00)
[2024-03-10] MEDS: TORADOL 10 MG IV ×3 (09:08→19:52)
[2024-03-10] MEDS: LASIX 20 MG IV (09:09)
--- NOTE | 2024-03-10 10:55 | PTCARENOTE ---
Assumed care of patient this morning. She appears drowsy. RN in room this morning with . Pt reports her pain is uncontrolled. discontinued COMMUNITY DEVELOPMENT SPECIALIST, will do PRN Dilaudid IV. Goal today to move around more. PT will see patient.
Abdomen Aquacel dressing removed by and L abdomen dressing changed. Assessment, care and VS as charted.
--- NOTE | 2024-03-10 11:47 | PTCARENOTE ---
Patient ringing call mar and asking to go back to bed. Patient only in chair for 45 minutes. Pt reporting that she is cold. Patient offered warm blankets but patient declined. Pt then reporting that she is just more comfortable in bed. RN attempted
educating patient on being up and in chair for recovery from surgery. Patient uninterested in education and stopped responding to questions. RN asked patient to stay for 15 more minutes for a total of 1 hour in the chair. Pt agreed.
[2024-03-10 12:22] LABS: Glucose - Point of Care 119 mg/dl (70-99)
[2024-03-10] MEDS: LOVENOX 40 MG SC (18:14)
[2024-03-10 18:27] LABS: Glucose - Point of Care 118 mg/dl (70-99)
[2024-03-10] MEDS: SEROQUEL 50 MG PO (19:53)
[2024-03-10] MEDS: FLOMAX 0.4 MG PO (19:53)
[2024-03-10 23:42] LABS: Glucose - Point of Care 103 mg/dl (70-99)
[2024-03-11] VITALS (11 sets, daily range): BP systolic 125–163; BP diastolic 59–96; BMI 45.2
[2024-03-11] MEDS: NOVOLOG FLEXPEN-MODERATE RESISTANCE SC ×4 (00:08→18:25)
[2024-03-11] MEDS: TORADOL 10 MG IV ×4 (01:36→19:52)
[2024-03-11] MEDS: DILAUDID 0.5 MG IV ×4 (01:37→19:52)
[2024-03-11] MEDS: CHLORASEPTIC/SORE THROAT SPRAY 1 SPRAY PO (01:42)
[2024-03-11] MEDS: NSS (PRESERVATIVE FREE) 0.25 ML IV ×2 (03:44→22:20)
[2024-03-11] MEDS: ATIVAN 0.5 MG IV ×2 (03:44→22:19)
[2024-03-11 04:28] LABS: Hematocrit 34.5 % (37.0-47.0); Hemoglobin 11.8 g/dL (12.0-16.0); Mean Corp Hgb Conc. 34.2 g/dL (33.0-37.0); Mean Corpuscular Hgb 31.1 pg (27.0-31.0); Mean Platelet Volume 10.8 fL (7.4-10.4); Platelet Count 244 10^3/uL (130-400); Red Blood Cell Count 3.79 10^6/uL (4.20-5.40); Red Cell Dist. Width 13.2 % (11.5-14.5); White Blood Cell Count 8.2 10^3/uL (4.8-10.8)
[2024-03-11 04:43] LABS: Blood Urea Nitrogen 7 mg/dl (7-17); Calcium 8.9 mg/dl (8.4-10.2); Carbon Dioxide 24 mmol/L (22-30); Chloride 101 mmol/L (98-107); Estimated Creatinine Clearance 119 ml/min; Glucose 103 mg/dl (70-99); Potassium 3.8 mmol/L (3.5-5.1); Sodium 139 mmol/L (135-145); eGFR > 60.00
[2024-03-11 05:49] LABS: Glucose - Point of Care 101 mg/dl (70-99)
[2024-03-11] MEDS: SYNTHROID 175 MCG PO (05:53)
--- NOTE | 2024-03-11 06:06 | PTCARENOTE ---
Patient able to sleep overnight. Requested dilaudid x2. Pt woke up in the middle of the night choking on phlegm and became anxious. used Yankauer suction independently; requested ativan, administered per JUL. encouraged to reposition self while in
bed. NGT to LIWS; 400mL brown/green output overnight. denies nausea, asking when the NGT will be removed, she is hungry. tolerating NGT being clamped for medications. mercer removed this morning per the order. SCDs on. 2L NC in place, encouraged deep
breathing. NSR on tele monitor, no ectopy. Abd incision YVES, approximated, no drainage. hypoactive BS. denies flatus. emotional encouragement given. pt appears to be talking more and smiled, but still reports feeling fatigued. appreciative of care.
call mar and tray table within reach. pt calls appropriately.
[2024-03-11] MEDS: LR 1000 IV ×2 (08:37→19:51)
[2024-03-11] MEDS: PROTONIX 40 MG PO (08:38)
--- NOTE | 2024-03-11 09:40 | W.PN.GS2 ---
Today's Communication / Plan
-
lasix 20mg IV
Cont NGT/NPO/IVF
Assessment / Plan
-
Assessment: 63 yo female diabetic female presenting for management of chronic low output enterocutaneous fistula now POD #5 Ex Lap, extensive CHANTAL, takedown EC Fistula/SBR
AFVSS
incision looks good, overall doing well post op
NGT with light bilious outputs still about 300mL+/shift but taking ice chips; awaiting ROBF
Plan: cont Toradol 10mg IV q6h ATC x 12 doses
PRN Dilaudid available as well
encouraged to increase time OOBTC and start ambulation/PT following
Continue NPO with ice chips for comfort with NGT to suction but okay to clamp for ambulation/mobility and meds
cont IVF at reduced rate
Lasix 20mg IV x 1 (second day in a row) for generalized edema
mercer out, DTV
Follow blood sugars on sliding scale insulin (moderate res.), currently well controlled
SCDs and lovenox for VTE ppx
PPI for GIp with NGT in place
Subjective Data
-
Date of Service: March 11, 2024
AFVSS, ambulated yesterday, taking ice chips, denies n/v with NGT to suction, denies flatus/BM, pain controlled, mercer out DTV
Objective Data
-
Intake and Output
03/10/24 03/11/24 03/12/24
06:59 06:59 06:59
Intake Total 1694.6 / 1694.6 60 60
Output Total 2450 / 2450 2675 / 2675
Balance -755.4 / -755.4 -2615 / -2615
Intake:
Oral fluids 60 / 60
IV fluids (Total) 1200 / 1200
IV piggybacks 404.6 / 404.6
Amount instilled into GI Tube ( 90 / 90
Total)
[place] Sump
Output:
Gastrointestinal tube output ( 406 / 625 425 / 705
Total)
[place] Sump 980 / 625 825 / 775
Urine, [place] 1825 / 182 1900 / 190
Vital Signs
Temp Pulse Resp BP Pulse Ox
97.4 F 69 17 137/96 96
03/11/24 07:15 03/11/24 06:00 03/11/24 06:00 03/11/24 06:00 03/11/24 06:00
Lab Results
03/11/24 03:54
03/11/24 03:54
Calcium 8.9 mg/dl (8.4-10.2) 03/11/24 03:54
Total Bilirubin 0.5 mg/dl (0.2-1.3) 02/21/24 12:35
AST 20 U/L (14-36) 02/21/24 12:35
ALT 21 U/L (0-35) 02/21/24 12:35
Alkaline Phosphatase 122 U/L (38-126) 02/21/24 12:35
Total Protein 7.4 g/dl (6.3-8.2) 02/21/24 12:35
Albumin 4.1 g/dl (3.5-5.0) 02/21/24 12:35
Physical Exam
-
Gen: NAD
Abd: soft, obese, incision cdi with dustin, lateral wound with cdi gauze, NGT bilious
[2024-03-11 12:08] LABS: Glucose - Point of Care 121 mg/dl (70-99)
[2024-03-11] MEDS: LASIX 20 MG IV (12:29)
[2024-03-11] MEDS: LOVENOX 40 MG SC (17:36)
[2024-03-11 18:29] LABS: Glucose - Point of Care 116 mg/dl (70-99)
--- NOTE | 2024-03-11 18:33 | PTCARENOTE ---
OOB to chair x 1.5 hours today- unable to sit for long periods- does better standing. Encouraging bsc as she does do well getting in/out bed. Remains NPO - took just a few ice chips today. NGT patent / flushed and documented (300ml output). IVF
infusing. IV Dilaudid for pain x2 this shift- makes her sleepy. RA while awake but desats to 77% when asleep- 2L NC replaced. Abdominal incisions angely dustin intact. Dressing x1 intact.
Mackay removed this am- voiding wel on bsc. No flatus/ stool noted today. SCDs in bed.
[2024-03-11] MEDS: ZOFRAN 4 MG IV (20:06)
[2024-03-11] MEDS: SEROQUEL 50 MG PO (22:19)
[2024-03-11] MEDS: FLOMAX 0.4 MG PO (22:19)
[2024-03-12] VITALS (11 sets, daily range): BP systolic 118–154; BP diastolic 58–85; PULSE 69; O2SAT 99; BMI 45.5
[2024-03-12 00:39] LABS: Glucose - Point of Care 99 mg/dl (70-99)
[2024-03-12] MEDS: NOVOLOG FLEXPEN-MODERATE RESISTANCE SC ×4 (00:40→18:03)
[2024-03-12] MEDS: TORADOL IV (04:34)
[2024-03-12 05:36] LABS: Hematocrit 38.7 % (37.0-47.0); Hemoglobin 12.9 g/dL (12.0-16.0); Mean Corp Hgb Conc. 33.3 g/dL (33.0-37.0); Mean Corpuscular Hgb 30.4 pg (27.0-31.0); Mean Corpuscular Volume 91.3 fL (81.0-99.0); Mean Platelet Volume 10.7 fL (7.4-10.4); Platelet Count 264 10^3/uL (130-400); Red Blood Cell Count 4.24 10^6/uL (4.20-5.40); Red Cell Dist. Width 13.2 % (11.5-14.5); White Blood Cell Count 8.5 10^3/uL (4.8-10.8)
[2024-03-12 05:59] LABS: Blood Urea Nitrogen 8 mg/dl (7-17); Carbon Dioxide 27 mmol/L (22-30); Chloride 100 mmol/L (98-107); Estimated Creatinine Clearance 101 ml/min; Glucose 97 mg/dl (70-99); Potassium 3.7 mmol/L (3.5-5.1); Sodium 140 mmol/L (135-145); eGFR > 60.00
[2024-03-12 06:11] LABS: Glucose - Point of Care 105 mg/dl (70-99)
[2024-03-12] MEDS: SYNTHROID 175 MCG PO (06:26)
[2024-03-12] MEDS: DILAUDID 0.5 MG IV ×2 (06:31→08:38)
--- NOTE | 2024-03-12 06:50 | PTCARENOTE ---
Pt drowsy overnight, able to sleep. NSR on tele. Midline abd incision YVES. Left abd dressing changed. denies flatus. 250mL NGT output. Patient requested pain medication twice. Pt requested Ativan x1 for anxiety. this morning bladder scan showing
500-600mL, voided 175mL in BSC. PVR showing 568mL. pt does not feel the urge to void. report given to oncoming nurse.
call mar and tray table within reach. pt calls appropriately.
[2024-03-12] MEDS: LR 1000 IV (08:35)
[2024-03-12] MEDS: TORADOL 10 MG IV ×3 (08:36→20:22)
[2024-03-12] MEDS: PROTONIX 40 MG PO (08:36)
--- NOTE | 2024-03-12 09:32 | W.PN.GS2 ---
Today's Communication / Plan
-
`
Assessment / Plan
-
Assessment: 63 yo female diabetic female presenting for management of chronic low output enterocutaneous fistula now POD #6 Ex Lap, extensive CHANTAL, takedown EC Fistula/SBR
AFVSS
NGT removed
Plan: okay to transfer to [facility] floor bed
cont Toradol 10mg IV q6h ATC x 12 doses
PRN Dilaudid available
encouraged to increase time OOBTC and start ambulation/PT following
NGT out - sips chips for now awaiting more robust return of GI function post op
cont IVF at reduced rate
Lasix 20mg IV (day3) for generalized edema
Follow blood sugars on sliding scale insulin (moderate res.), currently well controlled
SCDs and lovenox for VTE ppx
PPI for GIp
Subjective Data
-
Date of Service: March 12, 2024
pt seen and examined
post op pain controlled
no nausea
bowel sounds returning, no flatus yet
Objective Data
-
Intake and Output
03/11/24 03/12/24 03/13/24
06:59 06:59 06:59
Intake Total 60 / 60 189 / 189
Output Total 2675 / 2675 2175 / 2175 250 / 250
Balance -2615 / -2615 -285 / -285 -250 / -250
Intake:
Oral fluids 60 / 60
IV fluids (Total) 1840 / 1840
Amount instilled into GI Tube ( 50 / 50
Total)
[place] Sump 50 / 50
Output:
Gastrointestinal tube output ( 775 / 775 550 / 550
Total)
[place] Sump 775 / 775 550 / 550
Urine, [place] 190 / 190
Urine, Voided 1625 / 1625 250 / 250
Vital Signs
Temp Pulse Resp BP Pulse Ox
97.6 F 74 15 143/74 90
03/12/24 04:08 03/12/24 08:00 03/12/24 08:00 03/12/24 08:00 03/12/24 08:00
Lab Results
03/12/24 04:31
03/12/24 04:31
Calcium 9.0 mg/dl (8.4-10.2) 03/12/24 04:31
Total Bilirubin 0.5 mg/dl (0.2-1.3) 02/21/24 12:35
AST 20 U/L (14-36) 02/21/24 12:35
ALT 21 U/L (0-35) 02/21/24 12:35
Alkaline Phosphatase 122 U/L (38-126) 02/21/24 12:35
Total Protein 7.4 g/dl (6.3-8.2) 02/21/24 12:35
Albumin 4.1 g/dl (3.5-5.0) 02/21/24 12:35
Physical Exam
-
NAD AAOx3
ABD: soft, ND, mild incisional tenderness, no R/R/G
midline incision with dustin
NGT with light bilious outputs
[2024-03-12] MEDS: LASIX 20 MG IV (10:29)
[2024-03-12 11:52] LABS: Glucose - Point of Care 130 mg/dl (70-99)
--- NOTE | 2024-03-12 15:00 | PTCARENOTE ---
NGT removed today by MD- now tolerating po sips of clears (hot tea). Hypo active BSx4 no flatus yet. Voids much improved s/p IV Lasix. I/O documented. Trial on RAIR -96% when awake --however she is 77% on RAIR when sleeping- O2 placed 2L NC 97%
when sleeping. Desenex obtained for fungal rash in the groin/ breasts. Midline incision rotary drier feeder with dustin, no drainage. Dressing to LLQ CDI. Encouraged IS/ getting up oob to bsc to void- shes unable to sit in recliner for more than 1- 1.5hours.
[2024-03-12] MEDS: DESENEX/MITRAZOL/ZEASORB 1 APPLIC TOPICAL ×2 (15:01→20:22)
--- NOTE | 2024-03-12 16:00 | PTCARENOTE ---
Patient transferred from IMU to . Vs documented, midline dustin intact and dry MASTER BREWER. LQ abdomen dressing intact and dry. no s/s of distress noted, denies pain at this time. Plan of care ongoing.
--- NOTE | 2024-03-12 16:21 | PTCARENOTE ---
Report called and transferred pt to 2126 with cont. pox.
--- NOTE | 2024-03-12 16:30 | CM ---
Addendum entered by Traci Larsen RN 03/12/24 16:34:
Patient who is s/p Ex Lap, CHANTAL, takedown of enterocutaneous fistula/SBR. Room air. NPO/IVF. NGT removed - sips chips for now. Receiving IV Dilaudid, Toradol prn. PT recommends HH.
CM continuing to follow.
Plan home with [facility].
Original Note:
Patient who is s/p Ex Lap, CHANTAL, takedown of enterocutaneous fistula/SBR. Room air. MPO/IVF. NGT removed - sips chips for now. Receiving IV Dilaudid, Toradol prn. PT recommends HH.
CM continuing to follow.
Plan home with [facility].
[2024-03-12 18:01] LABS: Glucose - Point of Care 113 mg/dl (70-99)
[2024-03-12] MEDS: LOVENOX 40 MG SC (18:02)
[2024-03-12] MEDS: ATIVAN 0.5 MG IV (21:38)
[2024-03-12] MEDS: NSS (PRESERVATIVE FREE) 0.25 ML IV (21:40)
[2024-03-12] MEDS: FLOMAX 0.4 MG PO (21:41)
[2024-03-12] MEDS: SEROQUEL 50 MG PO (21:41)
[2024-03-12] MEDS: DILAUDID 1 MG IV (22:33)
[2024-03-13 00:20] LABS: Glucose - Point of Care 100 mg/dl (70-99)
[2024-03-13] MEDS: NOVOLOG FLEXPEN-MODERATE RESISTANCE SC ×4 (00:22→17:17)
[2024-03-13] MEDS: DILAUDID 1 MG IV ×6 (00:38→23:55)
[2024-03-13] MEDS: LR 1000 IV (00:44)
[2024-03-13] MEDS: TORADOL 10 MG IV ×2 (03:39→14:51)
[2024-03-13] MEDS: SYNTHROID 175 MCG PO (05:37)
[2024-03-13 05:43] LABS: Glucose - Point of Care 85 mg/dl (70-99)
[2024-03-13 06:00] VITALS: BMI 45.3
[2024-03-13 07:56] VITALS: BP 112/52
[2024-03-13] MEDS: PROTONIX 40 MG PO (09:09)
[2024-03-13] MEDS: DESENEX/MITRAZOL/ZEASORB 1 APPLIC TOPICAL ×2 (09:10→20:48)
--- NOTE | 2024-03-13 09:16 | W.PN.GS2 ---
Addendum entered and electronically signed by Jaime Agarwal MD 03/13/24 09:44:
Patient seen and examined.
Reports some LEFT sided abdominal discomfort described as a sharp burning sensation. No nausea or vomiting. Reports passing flatus, no BM. Ambulating. No fevers or chills. Denies any chest pain or worsening shortness of breath (remains on
supplemental O2).
Gen: NAD
Abd: soft, obese, tender to palpation in LEFT mid abdomen, non-peritoneal, incisions c/d/i - no erythema, ecchymosis or drainage, dustin in place
Patient is a 63 yo F diabetic female presenting for management of chronic low output enterocutaneous fistula now POD #7 s/p ex Lap, extensive CHANTAL, takedown EC Fistula/SBR
AFVSS, hypoxia persists on 2L NC. Possible component of obesity hypoventilation and chronic deconditioning
NGT removed on 03/12, no n/v or worsening distention. Passing flatus
Plan for dietary advancement and transition to PO pain meds
Plan:
-- Trial of clears
-- Add PO Tylenol & Toradol prn, PRN Dilaudid available, pending diet advancements will add Oxycodone as well
-- Wean O2 as able, IS while awake, encouraged to increase time OOBTC and start ambulation/PT reconsulted
-- DC IVF
-- Follow blood sugars on sliding scale Insulin (moderate res.), currently well controlled
-- DVT: SCDs and Lovenox for VTE ppx
-- GI: PPI
Original Note:
Today's Communication / Plan
-
Clear liquids
Pain management
Assessment / Plan
-
Assessment: 63 yo female diabetic female presenting for management of chronic low output enterocutaneous fistula now POD #7 Ex Lap, extensive CHANTAL, takedown EC Fistula/SBR
AFVSS, hypoxia persists on 2L NC. Possible component of obesit hypoventilation
NGT removed on 03/12, no n/v or worsening distention. Passing flatus
Plan: Trial of clears
Add PO Tylenol & Toradol prn
PRN Dilaudid available, pending diet advancements will add oxycodone as well
Wean O2 as able, IS while awake
encouraged to increase time OOBTC and start ambulation/PT reconsulted
d/c IVF
Follow blood sugars on sliding scale insulin (moderate res.), currently well controlled
SCDs and lovenox for VTE ppx
PPI for GIp
Subjective Data
-
Date of Service: March 13, 2024
Patient seen and examined at bedside with Dr. Agarwal. Denies n/v. Passing flatus. Pain to left incision which is sharp.
Objective Data
-
Intake and Output
03/12/24 03/13/24 03/14/24
06:59 06:59 06:59
Intake Total 1890 / 1890 1610 / 1610
Output Total 2175 / 2175 1400 / 1400
Balance -285 / -285 210 / 210
Intake:
Oral fluids 1260 / 1260
IV fluids (Total) 1840 / 1840 350 / 350
Amount instilled into GI Tube ( 50 / 50
Total)
[place] Sump 50 / 50
Output:
Gastrointestinal tube output ( 550 / 550
Total)
[place] Sump 550 / 550
Urine, Voided 1625 / 1625 1400 / 1400
Other:
Number of approximated LARGE 1
amounts of urine
Vital Signs
Temp Pulse Resp BP Pulse Ox
97.8 F 67 16 112/52 98
03/13/24 07:56 03/13/24 07:56 03/13/24 07:56 03/13/24 07:56 03/13/24 07:56
Lab Results
03/12/24 04:31
03/12/24 04:31
Calcium 9.0 mg/dl (8.4-10.2) 03/12/24 04:31
Total Bilirubin 0.5 mg/dl (0.2-1.3) 02/21/24 12:35
AST 20 U/L (14-36) 02/21/24 12:35
ALT 21 U/L (0-35) 02/21/24 12:35
Alkaline Phosphatase 122 U/L (38-126) 02/21/24 12:35
Total Protein 7.4 g/dl (6.3-8.2) 02/21/24 12:35
Albumin 4.1 g/dl (3.5-5.0) 02/21/24 12:35
Physical Exam
-
NAD AAOx3
ABD: soft, ND, mild incisional tenderness, no R/R/G
midline incision with dustin, left lateral incision with intact dustin: dressing with minimal bloody drainage on gauze pad
[2024-03-13 10:13] LABS: Glucose - Point of Care 92 mg/dl (70-99)
[2024-03-13 13:39] VITALS: BP 129/64
[2024-03-13] MEDS: TYLENOL 1000 MG PO (14:08)
--- NOTE | 2024-03-13 14:58 | CM ---
Patient seen at bedside.
PT rec Home Health.
[facility]erral [facility] -accepted.
PLAN: Discharge when stable to home with [facility]
Boyfriend or friend to transport
[2024-03-13 15:40] VITALS: BP 92/41
[2024-03-13 16:45] LABS: Glucose - Point of Care 135 mg/dl (70-99)
[2024-03-13] MEDS: LOVENOX 40 MG SC (17:18)
[2024-03-13] MEDS: SEROQUEL 50 MG PO (21:00)
[2024-03-13] MEDS: FLOMAX 0.4 MG PO (21:00)
[2024-03-13 21:49] LABS: Glucose - Point of Care 122 mg/dl (70-99)
[2024-03-13 23:23] VITALS: BP 112/53
[2024-03-14] MEDS: ATIVAN 0.5 MG IV (01:06)
[2024-03-14] MEDS: NSS (PRESERVATIVE FREE) 0.25 ML IV (01:07)
[2024-03-14 06:00] VITALS: BMI 45.6
[2024-03-14] MEDS: SYNTHROID 175 MCG PO (06:39)
[2024-03-14 07:53] VITALS: BP 126/56
[2024-03-14] MEDS: PROTONIX 40 MG PO (08:29)
[2024-03-14] MEDS: LIPITOR 10 MG PO (08:29)
[2024-03-14] MEDS: DESENEX/MITRAZOL/ZEASORB 1 APPLIC TOPICAL ×2 (08:40→21:45)
[2024-03-14 09:07] LABS: Glucose - Point of Care 109 mg/dl (70-99)
[2024-03-14] MEDS: NOVOLOG FLEXPEN-MODERATE RESISTANCE SC ×2 (10:04→13:14)
[2024-03-14] MEDS: DILAUDID 1 MG IV (10:05)
[2024-03-14] MEDS: FLUSH (NSS) 2 FLUSH IV (10:06)
--- NOTE | 2024-03-14 12:21 | W.PN.GS2 ---
Addendum entered and electronically signed by Onesimo Rodriguez MD 03/14/24 13:03:
I saw and examined the patient.
The SIGN WRITER LETTERER OR PAINTER's note was reviewed and I agree with the note.
Comment:
Recovering well. Tolerating clears and feeling hungry. Passing flatus, no BM.
AFVSS, ABD soft, nondistended, appropriately tender, midline incision well-approximated without erythema or drainage
� Advance to full's
� Continue pain control, add oxycodone as needed
� Wean O2 as tolerated
� Continue DVT PPx
Original Note:
Today's Communication / Plan
-
Dietary advancements
Assessment / Plan
-
Assessment: 63 yo female diabetic female presenting for management of chronic low output enterocutaneous fistula now POD #8 Ex Lap, extensive CHANTAL, takedown EC Fistula/SBR
AFVSS,
hypoxia persists on 2L NC. Possible component of obesity hypoventilation
tolerating clears with +flatus
Plan: Advance to FLD
Pain control: PO Tylenol & Oxycodone, IV Toradol and dilaudid prn
Wean O2 as able, IS while awake
encouraged to increase time OOBTC/PT following
Follow blood sugars on sliding scale insulin (moderate res.), currently well controlled
SCDs and lovenox for VTE ppx
PPI for GIp
Subjective Data
-
Date of Service: March 14, 2024
Patient seen and examined at bedside with Dr. Rodriguez. OOB to chair. Denies n/v. Tolerating clears. Passing flatus. Pain to the left lateral incision but not to midline. Denies cough, sob.
Objective Data
-
Intake and Output
03/13/24 03/14/24 03/15/24
06:59 06:59 06:59
Intake Total 1610 / 1610 1260 / 1260
Output Total 1400 / 1400
Balance 210 / 210 1260 / 1260
Intake:
Oral fluids 1260 / 1260 1260 / 1260
IV fluids (Total) 350 / 350
Output:
Urine, Voided 1399
Other:
Number of approximated MODERATE 2
amounts of urine
Number of approximated LARGE 1 3
amounts of urine
Vital Signs
Temp Pulse Resp BP Pulse Ox
98.3 F 68 16 126/56 97
03/14/24 07:53 03/14/24 07:53 03/14/24 07:53 03/14/24 07:53 03/14/24 07:53
Lab Results
03/12/24 04:31
03/12/24 04:31
Calcium 9.0 mg/dl (8.4-10.2) 03/12/24 04:31
Total Bilirubin 0.5 mg/dl (0.2-1.3) 02/21/24 12:35
AST 20 U/L (14-36) 02/21/24 12:35
ALT 21 U/L (0-35) 02/21/24 12:35
Alkaline Phosphatase 122 U/L (38-126) 02/21/24 12:35
Total Protein 7.4 g/dl (6.3-8.2) 02/21/24 12:35
Albumin 4.1 g/dl (3.5-5.0) 02/21/24 12:35
Physical Exam
-
NAD AAOx3
ABD: soft, ND, mild incisional tenderness, no R/R/G
midline incision with dustin, left lateral incision with intact dustin: dressing intact
[2024-03-14 12:39] VITALS: PULSE 84; O2SAT 97
[2024-03-14] MEDS: ROXICODONE 5 MG PO ×3 (13:11→23:19)
[2024-03-14 15:25] VITALS: BP 119/61
[2024-03-14 16:39] LABS: Glucose - Point of Care 161 mg/dl (70-99)
[2024-03-14] MEDS: NOVOLOG FLEXPEN-MODERATE RESISTANCE 1 UNITS SC (17:02)
[2024-03-14] MEDS: LOVENOX 40 MG SC (17:03)
[2024-03-14 21:25] LABS: Glucose - Point of Care 167 mg/dl (70-99)
[2024-03-14] MEDS: FLOMAX 0.4 MG PO (21:52)
[2024-03-14] MEDS: SEROQUEL 50 MG PO (21:52)
[2024-03-14] MEDS: ATIVAN 0.5 MG PO (22:03)
[2024-03-14 23:13] VITALS: BP 106/54
[2024-03-15] MEDS: ROXICODONE 5 MG PO ×4 (05:15→18:29)
[2024-03-15] MEDS: SYNTHROID 175 MCG PO (05:16)
[2024-03-15 06:00] VITALS: BMI 45.6
[2024-03-15 07:12] VITALS: BP 126/54
[2024-03-15 07:23] LABS: Glucose - Point of Care 117 mg/dl (70-99)
[2024-03-15] MEDS: PROTONIX 40 MG PO (08:14)
[2024-03-15] MEDS: ATIVAN 0.5 MG PO ×2 (08:14→21:27)
[2024-03-15] MEDS: DESENEX/MITRAZOL/ZEASORB 1 APPLIC TOPICAL ×2 (08:15→21:30)
[2024-03-15] MEDS: NOVOLOG FLEXPEN-MODERATE RESISTANCE SC (08:15)
[2024-03-15] MEDS: LIPITOR 10 MG PO (08:19)
--- NOTE | 2024-03-15 10:57 | W.PN.GS2 ---
Addendum entered and electronically signed by Onesimo Rodriguez MD 03/15/24 12:31:
I saw and examined the patient.
The JET SKI MECHANIC's note was reviewed and I agree with the note.
Comment:
Tolerating fulls and feeling hungry. Passing flatus and BMs.
AFVSS, off nasal cannula, ABD soft, nondistended, appropriately tender, midline incision well-approximated without erythema or drainage
� Advance to low residue
� Continue pain control, add oxycodone as needed
� Continue DVT PPx, encourage OOB/IS
Original Note:
Today's Communication / Plan
-
Advance diet
Assessment / Plan
-
Assessment: 63 yo female diabetic female presenting for management of chronic low output enterocutaneous fistula now POD #9 Ex Lap, extensive CHANTAL, takedown EC Fistula/SBR
AFVSS,
hypoxia resolved, sats are normal on RA
Tolerating FLD with +flatus and BM
Plan: Advance to ADA/LRD
Pain control: PO Tylenol & Oxycodone, IV Toradol and dilaudid prn
IS while awake
c/w home po meds
encouraged to increase time OOBTC/PT following
Follow blood sugars on sliding scale insulin (moderate res.), currently well controlled. Anticipate resuming home dose of glargine insulin once tolerating diet.
SCDs and lovenox for VTE ppx
PPI for GIp
Subjective Data
-
Date of Service: March 15, 2024
Patient seen and examined at bedside with Dr. Rodriguez. Notes she is feeling better and better but still with pain to the left lateral incision. Denies n/v. Passing flatus and has had a bowel movement. Tolerating liquids and would like to have diet
advanced
Objective Data
-
Intake and Output
03/14/24 03/15/24 03/16/24
06:59 06:59 06:59
Intake Total 1260 / 1260 630 / 630
Balance 1260 / 1260 630 / 630
Intake:
Oral fluids 1260 / 1260 630 / 630
Other:
Number of approximated MODERATE 2 1
amounts of urine
Number of approximated LARGE 3
amounts of urine
Vital Signs
Temp Pulse Resp BP Pulse Ox
97.8 F 66 16 126/54 95
03/15/24 07:12 03/15/24 07:12 03/15/24 07:12 03/15/24 07:12 03/15/24 07:12
Lab Results
03/12/24 04:31
03/12/24 04:31
Calcium 9.0 mg/dl (8.4-10.2) 03/12/24 04:31
Total Bilirubin 0.5 mg/dl (0.2-1.3) 02/21/24 12:35
AST 20 U/L (14-36) 02/21/24 12:35
ALT 21 U/L (0-35) 02/21/24 12:35
Alkaline Phosphatase 122 U/L (38-126) 02/21/24 12:35
Total Protein 7.4 g/dl (6.3-8.2) 02/21/24 12:35
Albumin 4.1 g/dl (3.5-5.0) 02/21/24 12:35
Physical Exam
-
NAD AAOx3
ABD: soft, ND, mild incisional tenderness, no R/R/G
midline incision with dustin, left lateral incision with intact dustin
[2024-03-15 11:32] LABS: Glucose - Point of Care 191 mg/dl (70-99)
[2024-03-15] MEDS: NOVOLOG FLEXPEN-MODERATE RESISTANCE 1 UNITS SC ×2 (11:37→16:48)
[2024-03-15 15:41] VITALS: BP 126/57
[2024-03-15] MEDS: LOVENOX 40 MG SC (16:47)
[2024-03-15 16:48] LABS: Glucose - Point of Care 199 mg/dl (70-99)
[2024-03-15 21:20] LABS: Glucose - Point of Care 233 mg/dl (70-99)
[2024-03-15] MEDS: SEROQUEL 50 MG PO (21:27)
[2024-03-15] MEDS: FLOMAX 0.4 MG PO (21:28)
[2024-03-15 23:06] VITALS: BP 102/67
[2024-03-16] MEDS: ROXICODONE 5 MG PO ×4 (02:39→21:46)
[2024-03-16] MEDS: SYNTHROID 175 MCG PO (05:36)
[2024-03-16 06:00] VITALS: BMI 45.9
[2024-03-16 07:00] LABS: Glucose - Point of Care 159 mg/dl (70-99)
[2024-03-16 07:08] VITALS: BP 105/58
[2024-03-16] MEDS: LIPITOR 10 MG PO (08:02)
[2024-03-16] MEDS: PROTONIX 40 MG PO (08:02)
[2024-03-16] MEDS: NOVOLOG FLEXPEN-MODERATE RESISTANCE 1 UNITS SC ×2 (08:03→12:25)
[2024-03-16] MEDS: DESENEX/MITRAZOL/ZEASORB 1 APPLIC TOPICAL (08:04)
[2024-03-16] MEDS: TYLENOL 1000 MG PO (08:06)
[2024-03-16 09:44] LABS: Hematocrit 35.4 % (37.0-47.0); Hemoglobin 11.8 g/dL (12.0-16.0); Mean Corp Hgb Conc. 33.3 g/dL (33.0-37.0); Mean Corpuscular Hgb 30.4 pg (27.0-31.0); Mean Corpuscular Volume 91.2 fL (81.0-99.0); Mean Platelet Volume 10.7 fL (7.4-10.4); Platelet Count 277 10^3/uL (130-400); Red Blood Cell Count 3.88 10^6/uL (4.20-5.40); Red Cell Dist. Width 13.7 % (11.5-14.5); White Blood Cell Count 7.3 10^3/uL (4.8-10.8)
--- NOTE | 2024-03-16 11:23 | W.PN.GS2 ---
Today's Communication / Plan
-
Dispo planning
Assessment / Plan
-
Assessment: 63 yo female diabetic female presenting for management of chronic low output enterocutaneous fistula now POD #10 Ex Lap, extensive CHANTAL, takedown EC Fistula/SBR
AFVSS,
Hypoxia resolved, sats are normal on RA
Good bowel function, tolerating diet
WBC wnl
Plan: Advance to ADA/LRD
Local wound care with packing
Pain control: PO Tylenol & Oxycodone, IV Toradol and Dilaudid prn
IS while awake
c/w home po meds
CM following with [facility] being arranged
encouraged to increase time OOBTC/PT following
Follow blood sugars on sliding scale insulin (moderate res.), currently well controlled. Anticipate resuming home dose of glargine insulin once tolerating diet.
SCDs and lovenox for VTE ppx
PPI for GIp
discharge today vs tomorrow pending arrangements for wound care
Subjective Data
-
Date of Service: March 16, 2024
Patient seen and examined at bedside with Dr. Philip. [place] n/v. Tolerating diet and passing flatus and stools. Pain improving.
Objective Data
-
Intake and Output
03/15/24 03/16/24 03/17/24
06:59 06:59 06:59
Intake Total 630 / 630 3360 / 3360
Balance 630 / 630 3360 / 3360
Intake:
Oral fluids 630 / 630 3360 / 3360
Other:
Number of approximated SMALL 2
amounts of urine
Number of approximated MODERATE 1 2
amounts of urine
Number of approximated LARGE 1
amounts of urine
Vital Signs
Temp Pulse Resp BP Pulse Ox
98.6 F 79 14 105/58 96
03/16/24 07:08 03/16/24 07:08 03/16/24 07:08 03/16/24 07:08 03/16/24 08:00
Lab Results
03/16/24 09:25
03/12/24 04:31
Calcium 9.0 mg/dl (8.4-10.2) 03/12/24 04:31
Total Bilirubin 0.5 mg/dl (0.2-1.3) 02/21/24 12:35
AST 20 U/L (14-36) 02/21/24 12:35
ALT 21 U/L (0-35) 02/21/24 12:35
Alkaline Phosphatase 122 U/L (38-126) 02/21/24 12:35
Total Protein 7.4 g/dl (6.3-8.2) 02/21/24 12:35
Albumin 4.1 g/dl (3.5-5.0) 02/21/24 12:35
Physical Exam
-
NAD AAOx3
ABD: soft, ND, mild incisional tenderness, no R/R/G
midline incision with dustin, left lateral incision with intact dustin minimal purulent drainage to site, cleaned and packed
[2024-03-16 11:45] LABS: Glucose - Point of Care 164 mg/dl (70-99)
[2024-03-16 15:00] VITALS: BP 117/67
--- NOTE | 2024-03-16 15:03 | CM ---
Met with patient at bedside.
IMM explained & signed. In chart
PT rec home health - Referral in [facility] for [facility]
Per patient [facility] called her.
PLAN: Home with [facility]
Patient states she will uber home
[2024-03-16 16:11] LABS: Glucose - Point of Care 257 mg/dl (70-99)
[2024-03-16] MEDS: NOVOLOG FLEXPEN-MODERATE RESISTANCE 5 UNITS SC (16:17)
[2024-03-16] MEDS: LOVENOX 40 MG SC (17:04)
--- NOTE | 2024-03-16 18:42 | PTCARENOTE ---
pt now agitated d/t being approached about possible room change and asking to leave. informed no d/c order at this time. Pt states she will leave AMA. reaching out to surgery, who directed to CC.
[2024-03-16 21:33] LABS: Glucose - Point of Care 214 mg/dl (70-99)
[2024-03-16] MEDS: SEROQUEL 50 MG PO (21:44)
[2024-03-16] MEDS: FLOMAX 0.4 MG PO (21:44)
[2024-03-16] MEDS: DESENEX/MITRAZOL/ZEASORB TOPICAL (21:44)
[2024-03-16] MEDS: LANTUS 0.12 UNITS SC (21:47)
[2024-03-16 23:37] VITALS: BP 117/62
[2024-03-17] MEDS: SYNTHROID 175 MCG PO (04:18)
[2024-03-17] MEDS: ROXICODONE 5 MG PO (04:21)
[2024-03-17 07:00] VITALS: BP 117/62
[2024-03-17 07:21] LABS: Glucose - Point of Care 131 mg/dl (70-99)
[2024-03-17] MEDS: NOVOLOG FLEXPEN-MODERATE RESISTANCE SC (07:24)
--- NOTE | 2024-03-17 07:46 | W.PN.GS2 ---
Today's Communication / Plan
-
DC home
Assessment / Plan
-
Assessment: 63 yo female diabetic female presenting for management of chronic low output enterocutaneous fistula now POD #11 Ex Lap, extensive CHANTAL, takedown EC Fistula/SBR
AFVSS
Plan: Patient stable for discharge home
Reviewed discharge instructions
Local wound care at old fistula site with saline moistened gauze lightly packed. Change 1-2 times daily and as needed drainage.
Subjective Data
-
Date of Service: March 17, 2024
Patient seen and examined
Tolerating low residue diet
Incisional pain adequately controlled
Passing flatus and moving bowels, loose but not diarrhea
Objective Data
-
Intake and Output
03/16/24 03/17/24 03/18/24
06:59 06:59 06:59
Intake Total 3360 / 3360 960 / 960
Balance 3360 / 3360 960 / 960
Intake:
Oral fluids 3360 / 3360 960 / 960
Other:
Number of approximated SMALL 2
amounts of urine
Number of approximated MODERATE 2 1
amounts of urine
Number of approximated LARGE 1
amounts of urine
Vital Signs
Temp Pulse Resp BP Pulse Ox
98.4 F 79 18 117/62 96
03/16/24 23:37 03/16/24 23:37 03/16/24 23:37 03/16/24 23:37 03/16/24 23:37
Lab Results
03/16/24 09:25
03/12/24 04:31
Calcium 9.0 mg/dl (8.4-10.2) 03/12/24 04:31
Total Bilirubin 0.5 mg/dl (0.2-1.3) 02/21/24 12:35
AST 20 U/L (14-36) 02/21/24 12:35
ALT 21 U/L (0-35) 02/21/24 12:35
Alkaline Phosphatase 122 U/L (38-126) 02/21/24 12:35
Total Protein 7.4 g/dl (6.3-8.2) 02/21/24 12:35
Albumin 4.1 g/dl (3.5-5.0) 02/21/24 12:35
Physical Exam
-
NAD AAOx3
ABD: Soft, obese, mild tenderness palpation at incision and old fistula site
Luis Daniel removed at old fistula site, no residual purulence. Minimal localized erythema. Repacked with saline moistened gauze
--- NOTE | 2024-03-17 07:48 | W.DS.TRANS ---
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
-
Discharge Instructions:
Sleep Apnea Risk Intermediate
Discharge Diagnosis/Procedures Exploratory laparotomy with lysis of adhesions,
takedown of enterocutaneous fistula and small
bowel resection
Diet Diabetic, Carb Controlled,Low Residue
Activity No strenuous activity
Additional Activity Do not lift over 15lbs for the next 4-6 weeks
Bathing Restrictions OK to Shower
Other Services VN
Wound Care Lightly pack your left sided incision with dry
gauze and cover with a gauze pad and change 1-2
times daily and as needed if excessive drainage
is noted. Your incision dustin will be removed
in your surgeon's office 2-3 weeks after surgery
.
Instructions:
Stand-Alone Forms:
Changes to Home Medications: No
Discharge Medications:
DC Medications w/original date entered in [facility]
lorazepam 0.5 mg tablet 0.5 mg PO DAILY Mental Health/Anxiety 11/30/11
quetiapine 50 mg tablet (Seroquel) 50 mg PO HS Mental Health/Anxiety 11/01/21
insulin aspart (niacinamide)(U-100) 100 unit/mL(3 mL) subcutaneous pen 0 sliding scale dose SC AC Diabetes 09/27/22
dulaglutide 4.5 mg/0.5 mL subcutaneous pen injector (Trulicity) 4.5 mg SC DENIS Diabetes 12/25/23
zolpidem 12.5 mg tablet,extended release,multiphase 12.5 mg PO HS Sleep 12/25/23
atorvastatin 10 mg tablet 10 mg PO DAILY High Cholesterol 02/28/24
furosemide 40 mg tablet (Lasix) 40 mg PO DAILY Fluid Retention/Swelling 02/28/24
levothyroxine 88 mcg tablet 176 mcg PO DAILY Thyroid 02/28/24
lorazepam 0.5 mg tablet 0.5 mg PO HS Mental Health/Anxiety 02/28/24
midodrine 5 mg tablet 5 mg PO DAILY Blood Pressure 02/28/24
polyethylene glycol 3350 17 gram oral powder packet (HealthyLax) 17 g PO BID PRN constipation 02/28/24
sennosides 8.6 mg tablet (Senna Laxative) 17.2 mg PO HS PRN constipation 02/28/24
insulin glargine 100 unit/mL (3 mL) subcutaneous pen (Basaglar KwikPen U-100 Insulin) 12 unit SC BID Diabetes 03/07/24
acetaminophen 325 mg tablet 650 mg (2 x 325 mg) PO Q4HPRN PRN mild pain #1 tab 03/16/24
ibuprofen 200 mg tablet 400 - 600 mg (2 - 3 x 200 mg) PO Q6HPRN PRN moderate pain #1 tab 03/16/24
oxycodone 5 mg tablet 5 mg PO Q4HPRN PRN breakthrough/severe pain #30 tabs 03/16/24
Home Medication Changes
Pending Results: No
[2024-03-17] MEDS: PROTONIX 40 MG PO (08:29)
[2024-03-17] MEDS: LIPITOR 10 MG PO (08:29)
[2024-03-17] MEDS: DESENEX/MITRAZOL/ZEASORB 1 APPLIC TOPICAL (08:32)
--- NOTE | 2024-03-17 09:15 | CM ---
Patient discharge today to home.
[facility] will follow at home.
PLAN: Home with [facility]
stated was going to uber home
== END 2024-03-17 09:09 | disposition home health service (06) | DRG 330 ==
LOC: 2 NORTH 06:07
PROVIDERS: Registered Nurse; ADMITTING PHYSICIAN Surgery; FAMILY PHYSICIAN Family Medicine
PROC: 0DN80ZZ Release Small Intestine, Open Approach (ICD-10-PCS; 2024-03-06)
PROC: 0DB80ZZ Excision of Small Intestine, Open Approach (ICD-10-PCS; 2024-03-06)
DX: K63.2 Fistula of intestine (principal); E66.2 Morbid (severe) obesity with alveolar hypoventilation; Z68.42 Body mass index [BMI] 45.0-49.9, adult; K66.0 Peritoneal adhesions (postprocedural) (postinfection); R09.02 Hypoxemia
CPT/HCPCS: 88304; 36415; 74018; 80048; 80053; 82962; 85027; 86850; 86900; 86901; 87070; 93005; 97116; 97163; 97530; C1776; J1335

== ENCOUNTER → 2024-03-28 10:54 | Outpatient (REF) | payer MEDICARE, OTHER, SELFPAY ==
[2024-03-28 11:54] LABS: % Basophils 0.4 % (0-2); % Eosinophils 8.2 % (0-6); % Immature Granulocytes 0.7 % (0-0.5); % Lymphocytes 27.2 % (20.5-51.1); % Monocytes 5.2 % (1.7-9.3); % Neutrophils 58.3 % (42.2-75.2); Absolute Basophils 0.1 10^3/uL (0-0.2); Absolute Immature Granulocytes 0.1 10^3/uL (0-0.05); Absolute Lymphocytes 3.4 10^3/uL (1.2-3.4); Absolute Monocytes 0.7 10^3/uL (0.1-0.6); Absolute Neutrophils 7.3 10^3/uL (1.4-6.5); Hematocrit 44.7 % (37.0-47.0); Hemoglobin 14.2 g/dL (12.0-16.0); Mean Corp Hgb Conc. 31.8 g/dL (33.0-37.0); Mean Corpuscular Hgb 30.6 pg (27.0-31.0); Mean Corpuscular Volume 96.3 fL (81.0-99.0); Mean Platelet Volume 10.6 fL (7.4-10.4); Nucleated Red Blood Cells % 0 %; Platelet Count 429 10^3/uL (130-400); Red Blood Cell Count 4.64 10^6/uL (4.20-5.40); Red Cell Dist. Width 14.6 % (11.5-14.5); White Blood Cell Count 12.5 10^3/uL (4.8-10.8)
[2024-03-28 12:05] LABS: Urine Albumin Trace (Neg - Trace); Urine Bilirubin Negative (Negative); Urine Character Clear (Clear); Urine Color Yellow; Urine Glucose Negative (Negative); Urine Ketone Negative (Negative); Urine Leukocyte Negative (Negative); Urine Nitrite Negative (Negative); Urine Occult Blood Negative (Negative); Urine Urobilinogen Negative (Neg - 1+)
== END ==
LOC: REG 10:54
PROVIDERS: ATTENDING PHYSICIAN Surgery; FAMILY PHYSICIAN Family Medicine
DX: Z04.9 Encounter for examination and observation for unspecified reason (principal); R10.84 Generalized abdominal pain
CPT/HCPCS: 36415; 81003; 85025

== ENCOUNTER → 2024-03-30 13:16 | Outpatient (REF) | payer MEDICARE, OTHER, SELFPAY | LOC: HWRAD 13:16 | PROVIDERS: ATTENDING PHYSICIAN Surgery; FAMILY PHYSICIAN Family Medicine | DX: Z90.49 Acquired absence of other specified parts of digestive tract (principal); R10.84 Generalized abdominal pain | CPT/HCPCS: 74177; Q9967 ==

== ENCOUNTER 2024-06-19 16:22 | Emergency (ER) | payer MEDICARE, OTHER, SELFPAY ==
[2024-06-19 16:36] VITALS: BP 150/79
[2024-06-19 22:04] LABS: Urine Albumin 1+ (Neg - Trace); Urine Bilirubin Negative (Negative); Urine Character Clear (Clear); Urine Color Amber; Urine Glucose Negative (Negative); Urine Ketone 1+ (Negative); Urine Leukocyte Negative (Negative); Urine Nitrite Negative (Negative); Urine Occult Blood Negative (Negative); Urine Urobilinogen 1+ (Neg - 1+)
[2024-06-19 22:33] LABS: Urine Bacteria Few (Negative); Urine Red Blood Cell 0-2 /HPF (0-2); Urine Squamous Cell >30 /LPF (Few)
[2024-06-20 00:25] VITALS: BP 135/80
--- NOTE | 2024-06-20 00:48 | ED.GENMED ---
History of Present Illness
General
Chief Complaint: Back Pain
Source: patient
Exam Limitations: none
Time Seen by Provider: 06/20/24 00:32
History of Present Illness
History of Present Illness:
This is a 64 year old female that comes in with c.o back pain and depression. Patient states that she is still having wound care under Dr. Severino after her surgery for a Small bowel fistula. States that her surgery was in February. States that she
spoke with [facility] today and she has a contract with them and does not want to speak any further with them. States that she called her PCP for a Referal to a private Psychiatrist. States that after speaking with [facility] she got very upset.
States that she is not suicidal. States that she has had a headache and is really not sleeping well. Denies any fever, chills, chest pain, SOB, abd pain, nausea, vomiting, diarrhea, dizziness, urinary burning.
Past History
Past History
ED Past Medical History: Cancer (Endometrial CA), HTN, NIDDM, Hypothyroidism, Psychiatric (Depression), Other (Pseudotumor cerebri, history of abdominal wall abscess, history of recurrent infected seroma, history of prolonged wound VAC for
nonhealing postsurgical abdominal wound, Idiopathic intracranial HTN, ) and Other (Diverticulitis, )
ED Past Surgical History: Appendectomy, Bowel resection (large bowel, ), Brain (Shunt), Cholecystectomy, Gynecological (Hysterectomy, PCOS), Orthopedic (Right patella removal, Right shoulder replacement) and Other (colostomy with reversal, hernia,
LP shunt at Lumbar peritoneal L3-L5 replaced 6 times, )
Social History
Tobacco: Non-smoker
Alcohol: Occasional
Drug: None
Personal: Single
Living: alone
Employment: Employed
Family History
Family History: Hypertension
Review of Systems
Review of Systems
All Other Systems: ROS reviewed and negative except as documented in HPI and ROS
Constitutional: Reports no symptoms; Denies fever or chills
EENT: Reports no symptoms
Respiratory: Denies cough or trouble breathing
Cardiac: Reports no symptoms; Denies chest pain
ABD/GI: Denies abdominal pain, nausea, vomiting or diarrhea
: Reports no symptoms; Denies dysuria, frequency or urgency
Musculoskeletal: Reports back pain
Skin: Reports no symptoms
Neurological: Reports headache; Denies dizzy
Psychiatric: Reports no symptoms
Phy Exam
General Physical Exam
General Presentation: well appearing and no apparent distress
General age: appears stated age
General Skin: warm and dry
General Habitus: obese
General Mental: alert
General Hydration: dry mucous membranes
ENT Exam
ENT Exam: TM's normal, pharynx normal and neck supple
Eye Exam
Eye Exam: EOMI
Cardiovascular Exam
Cardiovascular Exam: regular rate/rhythm, no murmur and normal peripheral pulses
Pulmonary Exam
Pulmonary Exam: lungs clear, no respiratory distress, no rales, chest non tender, no crackles, no rhonchi, no wheezing and no cough
Gastrointestinal Exam
Gastrointestinal Exam: normal bowel sounds, soft, no organomegaly, no pulsatile mass, non distended and tender (Slight Generalized tenderness with palpation)
Musculoskeletal Exam
Musculoskeletal Exam: full ROM and no edema
Skin Exam
Skin Exam: normal color, warm/dry, no rash, no petechia and other (Small open area on midline abd incision with dressing)
Psychiatric Exam
Psychiatric Exam: normal mood/affect
Course
Orders/Labs/Results
Orders:
Orders
06/19/24 16:44
CR Lumbar Spine Comp Min 4 Vw* Urgent
Comment:
Reason For Exam: fall, pain
06/19/24 21:34
Urinalysis Reflex To Culture Urgent
Date Specimen was Collected: 06/19/24
Time Specimen was Collected: 16:43
Urine Microscopic Reflex Cult Urgent
Abnormal Lab Results
06/19/24
21:34
Urine Ketones 1+ A
(Negative)
Urine Bacteria (Reflex) Few A
(Negative)
Urine Albumin (Reflex) 1+ A
(Neg - Trace)
Urine negative for infection.
Vital Signs
Initial and Last Documented VS:
Initial Vital Signs
Temp Pulse Resp BP Pulse Ox
97.9 F 90 18 150/79 95
06/19/24 16:36 06/19/24 16:36 06/19/24 16:36 06/19/24 16:36 06/19/24 16:36
Last Documented Vital Signs
Temp Pulse Resp BP Pulse Ox
97.9 F 90 18 135/80 96
06/19/24 16:36 06/19/24 16:36 06/19/24 16:36 06/20/24 00:25 06/20/24 00:30
MDM/Problems Addressed
Differential Diagnosis Includes:
Back pain, Depression
MDM/Problems Addressed:
This is a 64 year old female that comes in with c/o back pain after a fall last week. States that she has also been depressed since her surgery. Patient did speak with [facility] and has a Safety contract with them. Patient also called her PCP
today and got a referral to a Psychiatrist.
Explained to patient that her Urine is negative for infection and that the X-ray is negative for any acute fractures. Please follow up with the Psychiatrist and your family doctor. IF YOU HAVE ANY OTHER CONCERNS PLEASE RETURN TO THE EMERGENCY ROOM.
Chronic conditions affecting care: Psychiatric illness
Acute Exacerbation and/or Progression of Chronic Illness: Psychiatric illness
*Radiology
Radiology exam reviewed: radiology read reviewed (Lumbar spine-No evidence for fracture of the lumbar spine. Stable appearance of the lumbar spine comparred to CT examination of March 30, 2024)
*Pulse Oximetry
Patient hypoxic: no
*EKG
Interpreted by ED Provider?: NA
Rate: EKG- N/A
*Silviculture Forester Interpretation
Rate: Silviculture Forester- N/A
*Critical Care Note
Total Time (30-74mins, 75-104mins- exclusive of procedures): Not Applicable
ED Attending Note
-
Portions of this chart may have been created with voice recognition software.� Occasional wrong word or��sound alike� substitutions may have occurred due to the inherent limitations of voice recognition software.
Discharge Plan
Departure
Patient Disposition: Home (Routine Discharge)
Date of Disposition: 06/20/24
Time of Disposition: 01:16
Patient with high blood pressure during this ER visit?: Yes
Condition: Good
Covid-19: Not Applicable
Discharge Problem:
Back pain, Depression
Instructions: Low Back Pain (DC), Depression in adults - Discharge instructions, BLOOD PRESSURE
Prescriptions:
No Action
lorazepam 0.5 MG tablet
0.5 mg PO DAILY
quetiapine [Seroquel] 50 MG tablet
50 mg PO HS
insulin aspart (niacinamide) 100 unit/mL (3 mL) Insulin Pen
0 sliding scale dose SC AC
Patient Comments:
Took 6 units
Trulicity 4.5 mg/0.5 mL Pen Injector
4.5 mg SC DENIS
zolpidem 12.5 mg Tablet,Ext Release Multiphase
12.5 mg PO HS
furosemide [Lasix] 40 mg Tablet
40 mg PO DAILY
atorvastatin 10 mg Tablet
10 mg PO DAILY
midodrine 5 mg Tablet
5 mg PO DAILY
levothyroxine 88 mcg Tablet
176 mcg PO DAILY
lorazepam 0.5 mg Tablet
0.5 mg PO HS
sennosides [Senna Laxative] 8.6 mg tablet
17.2 mg PO HS PRN (Reason: constipation)
polyethylene glycol 3350 [HealthyLax] 17 gram powder in packet
17 g PO BID PRN (Reason: constipation)
insulin glargine [Basaglar KwikPen U-100 Insulin] 100 unit/mL (3 mL) insulin pen
12 unit SC BID
Patient Comments:
Took 12 units
acetaminophen [acetaminophen] 325 mg tablet
650 mg PO Q4HPRN PRN (Reason: mild pain) Qty: 1 0RF
ibuprofen 200 mg tablet
400 - 600 mg PO Q6HPRN PRN (Reason: moderate pain) Qty: 1 0RF
oxycodone 5 mg tablet
5 mg PO Q4HPRN PRN (Reason: breakthrough/severe pain) Qty: 30 0RF
Referrals:
Iftikhar Sam MD [Family Provider] - Call in 1-3 days for appt
Activity Restrictions/Additional Instructions:
As discussed, your urine is negative for infection and your X-ray is negative for any fractures. Please heat or ice to the back to help with pain control. YOu may also use Tylenol 1000mg every 6 hours for pain. Follow up with the family doctor for
recheck. Please follow up with the Psychiatrist for further evaluation. IF YOU HAVE ANY THOUGHTS OF SUICIDE OR YOU HAVE ANY OTHER CONCERNS PLEASE RETURN TO THE EMErGECY ROOM.
Interventions
Interventions:
*Risk Screen - Suicide Last Done: 06/19/24 16:36
*General Assessment Last Done: 06/19/24 16:36
*Neglect/Abuse Screening Last Done: 06/19/24 16:36
*ED COVID-19 Vaccine History Last Done: 06/19/24 16:36
Discharge Date and Time
Print Language: BAHAMIAN
== END 2024-06-20 01:20 | disposition home or self-care (01) ==
LOC: EMR 16:22
PROVIDERS: Emergency Medicine; EMERGENCY PHYSICIAN Student in an Organized Health Care Education/Training Program; FAMILY PHYSICIAN Family Medicine
DX: M54.50 Low back pain, unspecified (principal); F32.A Depression, unspecified; I10 Essential (primary) hypertension; E11.9 Type 2 diabetes mellitus without complications; E03.9 Hypothyroidism, unspecified; Z82.49 Family history of ischemic heart disease and other diseases of the circulatory system; Z90.49 Acquired absence of other specified parts of digestive tract; Z90.710 Acquired absence of both cervix and uterus; Z96.611 Presence of right artificial shoulder joint
CPT/HCPCS: 99283; 72110; 81003; 81015

== ENCOUNTER → 2024-07-14 08:25 | Outpatient (REF) | payer MEDICARE, OTHER, SELFPAY ==
[2024-07-14 10:21] LABS: Free T4 1.72 ng/dl (0.78-2.19)
[2024-07-14 10:35] LABS: TSH 0.95 uIU/ml (0.47-4.68)
== END ==
LOC: REG 08:25
PROVIDERS: ATTENDING PHYSICIAN Internal Medicine; FAMILY PHYSICIAN Family Medicine
DX: E03.9 Hypothyroidism, unspecified (principal)
CPT/HCPCS: 36415; 84439; 84443

== ENCOUNTER → 2024-08-19 12:54 | Outpatient (REF) | payer MEDICARE, OTHER, SELFPAY | LOC: RCS 12:54 | PROVIDERS: ATTENDING PHYSICIAN Student in an Organized Health Care Education/Training Program; FAMILY PHYSICIAN Family Medicine | DX: I95.1 Orthostatic hypotension (principal) | CPT/HCPCS: 93306 ==

== ENCOUNTER 2025-01-03 06:02 | Emergency (ER) | payer MEDICARE, OTHER, SELFPAY ==
[2025-01-03 06:06] VITALS: BP 134/73
[2025-01-03 08:05] LABS: Hematocrit 47.6 % (37.0-47.0); Hemoglobin 15.7 g/dL (12.0-16.0); Mean Corp Hgb Conc. 33.0 g/dL (33.0-37.0); Mean Corpuscular Volume 92.8 fL (81.0-99.0); Nucleated Red Blood Cells % 0 %; Platelet Count 247 10^3/uL (130-400); Red Cell Dist. Width 14.1 % (11.5-14.5)
[2025-01-03 08:19] LABS: ALT (SGPT) 29 U/L (0-35); AST (SGOT) 28 U/L (14-36); Albumin 4.2 g/dl (3.5-5.0); Alkaline Phosphatase 137 U/L (38-126); Blood Urea Nitrogen 13 mg/dl (7-17); Calcium 9.2 mg/dl (8.4-10.2); Carbon Dioxide 28 mmol/L (22-30); Chloride 103 mmol/L (98-107); Glucose 229 mg/dl (70-99); Potassium 3.8 mmol/L (3.5-5.1); Sodium 139 mmol/L (135-145); Total Protein 7.6 g/dl (6.3-8.2); eGFR > 60.00
--- NOTE | 2025-01-03 08:19 | ED.GENMED ---
Addendum entered and electronically signed by Diane Szymanski PA-C 01/07/25 07:16:
Genital culture positive for few Adalgisa albicans. I spoke with the patient. She is not feeling any relief and the Flagyl. She happens to have an [facility] appointment later today so she wrote down the results of this culture and will defer any
antifungal treatment to the specialist. Patient had been treated with an antifungal oral x 2 and topical several weeks ago and felt better briefly but it returned. I encouraged her to follow-up to ask for a resistant yeast culture.
Original Note:
History of Present Illness
General
Chief Complaint: Vaginal Bleeding
Source: patient
Exam Limitations: none
Time Seen by Provider: 01/03/25 07:09
Nursing documentation reviewed up to this point in time: agreed with
History of Present Illness
History of Present Illness:
64-year-old female with history of hypertension, hyperlipidemia, insulin-dependent diabetes, hysterectomy and history of bowel perforation requiring bowel resection with prior ostomy status post reversal, history of enterocutaneous fistula requiring
repair by Dr. Severino last year who presents to the emergency room for evaluation of vaginal discharge. Patient reports that she started having symptoms about a month ago and have been constant since that time. She reports that initially she was
having some thin watery discharge and general feeling of irritation in her vagina. She thought that she had a yeast infection and took oral antifungal as well as vaginal suppository. Symptoms did not improve and in fact a few days thereafter she
started to notice that she was having vaginal discharge. She believes it is blood she describes a dark foul-smelling discharge. She has not had any bright red blood. She says that the amount of discharge waxes and wanes. She says that symptoms
have not been improving which prompted her to finally come to the ER for assessment. She denies any significant abdominal pain. She has not had any diarrhea or constipation. She has not had any blood in her stools. She denies any dysuria or
hematuria. She is not currently sexually active she says.
Past History
Past History
ED Past Medical History: Cancer (Endometrial CA), HTN, NIDDM, Hypothyroidism, Psychiatric (Depression), Other (Pseudotumor cerebri, history of abdominal wall abscess, history of recurrent infected seroma, history of prolonged wound VAC for
nonhealing postsurgical abdominal wound, Idiopathic intracranial HTN, ) and Other (Diverticulitis, )
ED Past Surgical History: Appendectomy, Bowel resection (large bowel, ), Brain (Shunt), Cholecystectomy, Gynecological (Hysterectomy, PCOS), Orthopedic (Right patella removal, Right shoulder replacement) and Other (colostomy with reversal, hernia,
LP shunt at Lumbar peritoneal L3-L5 replaced 6 times, )
Social History
Tobacco: Non-smoker
Alcohol: Occasional
Drug: None
Personal: Single
Living: alone
Employment: Employed
Family History
Family History: Hypertension
Review of Systems
Review of Systems
All Other Systems: ROS reviewed and negative except as documented in HPI and ROS
Constitutional: Denies fever or chills
Respiratory: Denies trouble breathing
Cardiac: Denies chest pain
ABD/GI: Denies abdominal pain, vomiting, diarrhea, constipated or bloody stools
: Reports discharge; Denies dysuria or flank pain
Phy Exam
Physical Exam
Physical Exam:
General: Awake, alert, oriented x3; no acute distress
Head: Normocephalic, atraumatic
Eyes: Conjunctiva normal
Throat: Airway intact, handling secretions
Neck: Trachea midline, supple without meningismus
Lungs: Clear to auscultation bilaterally, no wheezing, rales, rhonchi
Heart: Regular rate and rhythm, no murmurs, gallops, or rubs
Abd: Obese but soft, non distended, nontender to deep palpation; multiple abdominal wall scars noted
: Performed with female nurse in room as operations manager/coordinator //normal external genitalia, mild irritation/erythema of the vaginal vogt, thin white discharge noted in the vaginal vault and around the cervix, no cervical motion tenderness, no blood noted
Neuro: No gross deficits
Extremities: Warm and well-perfused
Scores
Heart Failure Risk
Heart Failure Risk Score: Not Applicable
Heart Score for Chest Pain Patients
STEMI patient?: Not applicable
Withdrawal Assessment of Alcohol
Withdrawal Assessment Completed?: Not applicable
Course
Orders/Labs/Results
Orders:
Orders
01/03/25 07:11
CT Abd/pelvis W Iv Cont Urgent
Comment: rectal contrast
Reason For Exam: abd pain, vaginal bleeding
Urinalysis Reflex To Culture Urgent
Date Specimen was Collected: 01/03/25
Time Specimen was Collected: 07:40
01/03/25 07:40
Complete Blood Count/With Diff Urgent
Comprehensive Metabolic Panel Urgent
01/03/25 07:43
Genital Culture Urgent
DION Source: Cervix
Specimen Description:
Date Specimen was Collected: 01/03/25
Time Specimen was Collected: 07:40
01/03/25 07:44
Chlamydia/GC by PCR Urgent
DION Source: Endo-Cervical
Specimen Description:
Source:: CERVIX
Date Specimen was Collected: 01/03/25
Time Specimen was Collected: 07:40
Abnormal Lab Results
01/03/25
07:40
Hct 47.6 H %
(37.0-47.0)
MPV 11.1 H fL
(7.4-10.4)
Glucose 229 H mg/dl
(70-99)
Alkaline Phosphatase 137 H U/L
(38-126)
01/03/25 07:40
01/03/25 07:40
Vital Signs
Initial and Last Documented VS:
Initial Vital Signs
Temp Pulse Resp BP Pulse Ox
36.6 C 91 20 134/73 95
01/03/25 06:06 01/03/25 06:06 01/03/25 06:06 01/03/25 06:06 01/03/25 06:06
Last Documented Vital Signs
Temp Pulse Resp BP Pulse Ox
36.6 C 91 20 134/73 95
01/03/25 06:06 01/03/25 06:06 01/03/25 06:06 01/03/25 06:06 01/03/25 08:27
MDM/Problems Addressed
Differential Diagnosis Includes:
Vaginitis/BV, yeast infection, gonorrhea/chlamydia (less likely as patient denies being sexually active), vaginal fistula
MDM/Problems Addressed:
64-year-old female presents for evaluation of vaginal discharge and sensation of irritation in the vagina ongoing for about a month. Initially had some watery white discharge but since then has developed dark foul-smelling discharge that initially
she thought was blood. She does have history of multiple bowel surgeries and prior fistulas. Vitals and exam as above. Will check basic labs. Vaginal swab sent off. Will plan to check urinalysis. Sent for a CT of the abdomen pelvis with rectal
contrast to evaluate for any obvious signs of fistula. Will reassess after the above.
Labs reviewed: CBC unremarkable including normal hemoglobin. CMP does show random glucose 229 in the setting of known insulin-dependent diabetes but no signs of DKA. CT pending.
CT no acute pathology noted�no definitive evidence for rectovaginal fistula. No clear emergent pathology�unclear if discharge patient noted is some dark blood or if this could be infectious. No dark or bloody discharge noted on pelvic exam today
only thin watery discharge. She did have some irritation of the vaginal wall. I think will be reasonable to treat for BV but clearly she needs to follow-up with [facility] closely. Patient feels comfortable with this plan. Spoke about follow-up plan
and return precautions and all questions answered.
Chronic conditions affecting care:
Multiple bowel surgeries
*Radiology
Radiology exam reviewed: radiology read reviewed
*Pulse Oximetry
SaO2: 95
Oxygen Mode of Delivery: Room air
Patient hypoxic: no (95%)
*Critical Care Note
Total Time (30-74mins, 75-104mins- exclusive of procedures): Not Applicable
Data Reviewed
Review of Other/Old Records Reveals: Labs and Records
Source: patient and records
ED Attending Note
-
Portions of this chart may have been created with voice recognition software.� Occasional wrong word or��sound alike� substitutions may have occurred due to the inherent limitations of voice recognition software.
Discharge Plan
Departure
Patient Disposition: Home (Routine Discharge)
Date of Disposition: 01/03/25
Time of Disposition: 10:21
Patient with high blood pressure during this ER visit?: No
Discharge Problem:
Vaginal bleeding, Vaginal discharge
Instructions: Vaginal discharge
Prescriptions:
New
metronidazole 500 mg tablet
500 mg PO BID 7 Days Qty: 14 0RF
No Action
lorazepam 0.5 MG tablet
0.5 mg PO DAILY
quetiapine [Seroquel] 50 MG tablet
50 mg PO HS
insulin aspart (niacinamide) 100 unit/mL (3 mL) Insulin Pen
0 sliding scale dose SC AC
Patient Comments:
Took 6 units
Trulicity 4.5 mg/0.5 mL Pen Injector
4.5 mg SC DENIS
zolpidem 12.5 mg Tablet,Ext Release Multiphase
12.5 mg PO HS
furosemide [Lasix] 40 mg Tablet
40 mg PO DAILY
atorvastatin 10 mg Tablet
10 mg PO DAILY
midodrine 5 mg Tablet
5 mg PO DAILY
levothyroxine 88 mcg Tablet
176 mcg PO DAILY
lorazepam 0.5 mg Tablet
0.5 mg PO HS
sennosides [Senna Laxative] 8.6 mg tablet
17.2 mg PO HS PRN (Reason: constipation)
polyethylene glycol 3350 [HealthyLax] 17 gram powder in packet
17 g PO BID PRN (Reason: constipation)
insulin glargine [Basaglar KwikPen U-100 Insulin] 100 unit/mL (3 mL) insulin pen
12 unit SC BID
Patient Comments:
Took 12 units
acetaminophen [acetaminophen] 325 mg tablet
650 mg PO Q4HPRN PRN (Reason: mild pain) Qty: 1 0RF
ibuprofen 200 mg tablet
400 - 600 mg PO Q6HPRN PRN (Reason: moderate pain) Qty: 1 0RF
oxycodone 5 mg tablet
5 mg PO Q4HPRN PRN (Reason: breakthrough/severe pain) Qty: 30 0RF
Referrals:
Chanel Valencia DO [Active, Gynecology] - Call in 1-3 days for appt
Referral Note: You should call your [facility] to schedule follow-up appointment soon as possible-if you do not have an [facility] you can call to schedule an appointment at the number provided.
Activity Restrictions/Additional Instructions:
Thank you for visiting the Emergency Department at [facility].
1. Please schedule a follow up appointment as directed. Call first thing tomorrow morning to make an appointment.
2. If indicated, please take your medications as instructed and indicated on discharge paperwork.
3. If any of your symptoms do not improve, or persist, or become more severe within 6-12 hours, please return to the emergency department for further care.
4. Please return to the emergency department if you develop a headache, neck pain/stiffness, fever greater than 100.4F, chest pain, shortness of breath, persistent nausea, vomiting, slurred speech, difficulty walking, numbness/tingling, weakness,
signs of infection or any other symptoms that are worrisome to you.
Please call [phone] if you have any questions.
Interventions
Interventions:
*Risk Screen - Suicide Last Done: 01/03/25 06:06
*General Assessment Last Done: 01/03/25 06:06
*Neglect/Abuse Screening Last Done: 01/03/25 06:06
ED-Female Genitourinary Assessment Last Done: 01/03/25 08:00
Discharge Date and Time
Print Language: AUSTRIAN
[2025-01-03 10:00] VITALS: BP 136/80
[2025-01-03] MEDS: FLAGYL 500 MG PO (10:43)
== END 2025-01-03 10:30 | disposition home or self-care (01) ==
LOC: EMR 06:02
PROVIDERS: EMERGENCY PHYSICIAN Emergency Medicine
DX: N93.9 Abnormal uterine and vaginal bleeding, unspecified (principal); N89.8 Other specified noninflammatory disorders of vagina; I10 Essential (primary) hypertension; E78.5 Hyperlipidemia, unspecified; E11.9 Type 2 diabetes mellitus without complications; E03.9 Hypothyroidism, unspecified; Z79.4 Long term (current) use of insulin; Z90.49 Acquired absence of other specified parts of digestive tract; Z90.710 Acquired absence of both cervix and uterus
CPT/HCPCS: 99284; 74177; 80053; 85025; 87070; 87491; 87591; Q9967

== ENCOUNTER → 2025-02-16 16:52 | Outpatient (REF) | payer MEDICARE, OTHER, SELFPAY | LOC: WDC 16:52 | PROVIDERS: ATTENDING PHYSICIAN Obstetrics & Gynecology; FAMILY PHYSICIAN Family Medicine | DX: Z12.31 Encounter for screening mammogram for malignant neoplasm of breast (principal) | CPT/HCPCS: 77063; 77067 ==

== ENCOUNTER → 2025-04-13 09:27 | Outpatient (REF) | payer MEDICARE, OTHER, SELFPAY | LOC: RST 09:27 | DX: R13.10 Dysphagia, unspecified (principal) | CPT/HCPCS: 74221 ==

== ENCOUNTER 2025-04-20 06:19 | Day surgery (SDC) | payer MEDICARE, OTHER, SELFPAY ==
[2025-04-20 07:51] LABS: Glucose - Point of Care 188 mg/dl (70-99)
== END 2025-04-20 09:33 | disposition home or self-care (01) ==
LOC: GI 06:19
PROVIDERS: ATTENDING PHYSICIAN Surgery
DX: Z12.11 Encounter for screening for malignant neoplasm of colon (principal); K57.30 Diverticulosis of large intestine without perforation or abscess without bleeding; D12.0 Benign neoplasm of cecum; D12.5 Benign neoplasm of sigmoid colon; K63.5 Polyp of colon; Z86.0100 Personal history of colon polyps, unspecified
CPT/HCPCS: 45380; 82962; 88305